=== PATIENT | female | born 1940 | race Caucasian/White ===

== ENCOUNTER 2018-04-28 13:30 | Emergency (ER) | payer OTHER ==
--- OUTSIDE RECORDS SUMMARY | 2018-04-28 13:34 | XMS REPORT | Clinical Summary ---
:1940 Author Organization [facility] Address [address] [place] [address] Care Team Providers Name Role Phone Gage Mccauley MD Primary Care Provider Allergies Active Allergy Reactions Severity Noted Date Comments Codeine GI Intolerance 11/27/2015 Vomiting Medications Medication Sig Dispensed Refills Start End Date Status Date insulin lispro Inject 5 Units 0 Active (HumaLOG) 100 under the skin 3 unit/mL injection (three) times a day before meals. INSULIN Inject 35 Units 0 Active GLARGINE,HUM.REC.AN under the skin LOG (TOUJEO daily. SOLOSTAR U-300 INSULIN SUBQ) albuterol (PROAIR Inhale 2 puffs 0 Active HFA,PROVENTIL every 6 (six) HFA,VENTOLIN HFA) hours as needed 90 mcg/actuation for wheezing. inhaler acetaminophen Take 1 tablet 30 tablet 2 Active (TYLENOL) 500 MG (500 mg total) by 8 tablet mouth every 6 (six) hours as needed for mild pain. gabapentin 300 mg Take by mouth. 0 09/10/19 Discontinued tablet extended 18 release 24 hr clonIDINE Take 0.1 mg by 0 11/05/19 Discontinued (CATAPRES) 0.1 MG mouth 2 (two) 18 tablet times a day. glipiZIDE Take 15 mg by 0 07/15/19 Discontinued (GLUCOTROL) 5 MG mouth 2 (two) 18 tablet times a day before meals. hydrALAZINE Take 50 mg by 0 11/18/19 Discontinued (APRESOLINE) 50 MG mouth 3 (three) 18 tablet times a day. metoprolol tartrate Take 50 mg by 0 11/18/19 Discontinued (LOPRESSOR) 50 MG mouth 2 (two) 18 tablet times a day. NIFEdipine XL Take 60 mg by 0 11/18/19 Discontinued (PROCARDIA XL) 60 mouth daily. 18 MG 24 hr tablet albuterol Inhale 2 puffs 0 07/15/19 Discontinued (PROVENTIL every 4 (four) 18 HFA;VENTOLIN HFA) hours as needed 90 mcg/actuation for wheezing. inhaler clopidogrel Take 75 mg by 0 07/15/19 Discontinued (PLAVIX) 75 mg mouth daily. 18 tablet insulin GLARGINE Inject 30 Units 0 07/15/19 Discontinued (LANTUS) 100 under the skin 2 18 unit/mL injection (two) times a day. montelukast Take 10 mg by 0 09/17/19 Discontinued (SINGULAIR) 10 mg mouth nightly. 18 tablet potassium chloride Take 10 mEq by 0 11/18/19 Discontinued (K-DUR,KLOR-CON) 10 mouth daily. 18 MEQ CR tablet thyroid, pork, Take 60 mg by 0 07/15/19 Discontinued (ARMOUR THYROID) 60 mouth daily. 18 mg tablet traMADol (ULTRAM) Take 50 mg by 0 09/17/19 Discontinued 50 mg tablet mouth every 6 18 (six) hours as needed for moderate pain. aspirin (ECOTRIN) Take 81 mg by 0 07/15/19 Discontinued 81 MG enteric mouth daily. 18 coated tablet atorvastatin Take 20 mg by 0 11/18/19 Discontinued (LIPITOR) 20 MG mouth nightly. 18 tablet pantoprazole Take 40 mg by 0 07/26/19 Discontinued (PROTONIX) 40 MG EC mouth daily. 18 tablet propafenone Take 150 mg by 0 09/17/19 Discontinued (RHTHYMOL) 150 MG mouth 2 (two) 18 tablet times a day. warfarin (COUMADIN) Take 4 mg by 0 07/15/19 Discontinued 4 MG tablet mouth daily. 6 18 days a week warfarin (COUMADIN) Take 1 mg by 0 07/15/19 Discontinued 1 MG tablet mouth once a 18 week. Every tuesday ranitidine (ZANTAC) Take 150 mg by 0 09/10/19 Discontinued 150 MG tablet mouth nightly. 18 torsemide (DEMADEX) Take 20 mg by 0 07/15/19 Discontinued 20 MG tablet mouth 2 (two) 18 times a day. enoxaparin Inject 0.6 mL (60 18 mL 0 08/14/19 (LOVENOX) 60 mg/0.6 mg total) under 8 18 mL syringe the skin daily for 30 days. torsemide (DEMADEX) Take 2 tablets 60 tablet 0 08/15/19 20 MG tablet (40 mg total) by 8 18 mouth daily for 30 days. pantoprazole Take 1 tablet (40 90 tablet 0 09/10/19 Discontinued (PROTONIX) 40 MG EC mg total) by 8 18 tablet mouth daily for 90 days. warfarin (COUMADIN) Take 4 mg by 0 11/18/19 Discontinued 4 MG tablet mouth See Admin 18 Instructions. Takes 6 days a week : Tuesday,Tuesday,, Tuesday, Tuesday, Tuesday warfarin (COUMADIN) Take 1 mg by 0 11/18/19 Discontinued 1 MG tablet mouth once a 18 week. On Tuesday @5PM acetaminophen Take 500 mg by 0 11/18/19 Discontinued (TYLENOL) 500 MG mouth every 6 18 tablet (six) hours as needed for mild pain. loratadine Take 10 mg by 0 09/10/19 Discontinued (CLARITIN) 10 mg mouth daily. 18 tablet dextrose 10 % Infuse 40 mL/hr 500 mL 0 09/05/19 infusion into a venous 8 18 catheter continuously as needed (bedside glucose LESS than 70 mg/dL) for up to 30 days. pantoprazole Take 40 mg by 0 11/18/19 Discontinued (PROTONIX) 40 MG EC mouth 2 (two) 18 tablet times a day. SUNItinib (SUTENT) Take 1 capsule by 0 09/17/19 Discontinued 37.5 mg capsule mouth nightly. 18 torsemide (DEMADEX) Take 30 mg by 0 09/17/19 Discontinued 20 MG tablet mouth daily. 18 ondansetron ODT Take 8 mg by 0 09/17/19 Discontinued (ZOFRAN-ODT) 8 MG mouth nightly. 18 disintegrating Takes 30 minutes tablet before taking Sutent caps traMADol (ULTRAM) Take 1 tablet (50 30 tablet 0 10/01/19 50 mg tablet mg total) by 8 18 mouth every 8 (eight) hours as needed for moderate pain for up to 30 doses. torsemide (DEMADEX) Take 1 tablet (20 30 tablet 0 10/17/19 20 MG tablet mg total) by 8 18 mouth daily for 30 days. HYDROcodone-acetami Take 1 tablet by 30 tablet 0 10/01/19 nophen (NORCO) mouth every 6 8 18 7.5-325 mg per (six) hours as tablet needed for moderate pain for up to 30 doses. Max Daily Amount: 4 tablets propafenone Take 1 tablet 90 tablet 0 10/17/19 (RYTHMOL) 150 MG (150 mg total) by 8 18 tablet mouth every 8 (eight) hours for 30 days. torsemide (DEMADEX) Take 20 mg by 0 11/09/19 Discontinued 20 MG tablet mouth daily. 18 propafenone Take 150 mg by 0 11/09/19 Discontinued (RYTHMOL) 150 MG mouth 3 (three) 18 tablet times a day. traMADol (ULTRAM) Take 50 mg by 0 11/09/19 Discontinued 50 mg tablet mouth every 6 18 (six) hours as needed for moderate pain. montelukast Take 10 mg by 0 11/09/19 Discontinued (SINGULAIR) 10 mg mouth nightly. 18 tablet traMADol (ULTRAM) Take 1 tablet (50 40 tablet 0 11/18/19 Discontinued 50 mg tablet mg total) by 8 18 mouth every 8 (eight) hours as needed for moderate pain for up to 40 doses. warfarin (COUMADIN) One tab daily 30 tablet 0 11/18/19 Discontinued 4 MG tablet 8 18 atorvastatin Take 1 tablet (20 30 tablet 0 11/18/19 Discontinued (LIPITOR) 20 MG mg total) by 8 18 tablet mouth nightly for 30 days. Default OP ins hydrALAZINE Take 1 tablet (50 90 tablet 0 11/18/19 Discontinued (APRESOLINE) 50 MG mg total) by 8 18 tablet mouth 3 (three) times a day for 30 days. metoprolol tartrate Take 1 tablet (50 60 tablet 0 11/18/19 Discontinued (LOPRESSOR) 50 mg mg total) by 8 18 tablet mouth 2 (two) times a day for 30 days. NIFEdipine XL Take 1 tablet (60 30 tablet 0 11/18/19 Discontinued (PROCARDIA XL) 60 mg total) by 8 18 MG 24 hr tablet mouth daily for 30 days. enoxaparin Inject 0.6 mL (60 1.8 mL 0 11/18/19 Discontinued (LOVENOX) 60 mg/0.6 mg total) under 8 18 mL syringe the skin daily for 3 days. montelukast Take 1 tablet (10 30 tablet 0 11/18/19 Discontinued (SINGULAIR) 10 mg mg total) by 8 18 tablet mouth nightly for 30 days. torsemide (DEMADEX) Take 1 tablet (20 30 tablet 0 11/18/19 Discontinued 20 MG tablet mg total) by 8 18 mouth daily for 30 days. potassium chloride Take 1 capsule 30 capsule 0 12/19/19 (MICRO-K) 10 MEQ CR (10 mEq total) by 8 18 capsule mouth daily for 30 days. pantoprazole Take 1 tablet (40 60 tablet 0 11/18/19 Discontinued (PROTONIX) 40 MG EC mg total) by 8 18 tablet mouth 2 (two) times a day for 30 days. propafenone Take 1 tablet 90 tablet 0 11/18/19 Discontinued (RYTHMOL) 150 MG (150 mg total) by 8 18 tablet mouth 3 (three) times a day for 30 days. traMADol (ULTRAM) Take 1 tablet (50 40 tablet 0 12/09/19 50 mg tablet mg total) by 8 18 mouth every 8 (eight) hours as needed for moderate pain for up to 40 doses. propafenone Take 1 tablet 90 tablet 0 12/18/19 (RYTHMOL) 150 MG (150 mg total) by 8 18 tablet mouth 3 (three) times a day for 30 days. warfarin (COUMADIN) One tab daily 30 tablet 0 12/16/19 4 MG tablet 8 18 atorvastatin Take 1 tablet (20 30 tablet 0 12/18/19 (LIPITOR) 20 MG mg total) by 8 18 tablet mouth nightly for 30 days. Default OP ins hydrALAZINE Take 1 tablet (50 90 tablet 0 12/18/19 (APRESOLINE) 50 MG mg total) by 8 18 tablet mouth 3 (three) times a day for 30 days. metoprolol tartrate Take 1 tablet (50 60 tablet 0 12/18/19 (LOPRESSOR) 50 mg mg total) by 8 18 tablet mouth 2 (two) times a day for 30 days. NIFEdipine XL Take 1 tablet (60 30 tablet 0 12/19/19 (PROCARDIA XL) 60 mg total) by 8 18 MG 24 hr tablet mouth daily for 30 days. enoxaparin Inject 0.6 mL (60 1.8 mL 0 11/21/19 (LOVENOX) 60 mg/0.6 mg total) under 8 18 mL syringe the skin daily for 3 days. montelukast Take 1 tablet (10 30 tablet 0 12/18/19 (SINGULAIR) 10 mg mg total) by 8 18 tablet mouth nightly for 30 days. torsemide (DEMADEX) Take 1 tablet (20 30 tablet 0 12/19/19 20 MG tablet mg total) by 8 18 mouth daily for 30 days. pantoprazole Take 1 tablet (40 60 tablet 0 12/18/19 (PROTONIX) 40 MG EC mg total) by 8 18 tablet mouth 2 (two) times a day for 30 days. Active Problems Problem Noted Date Bilateral primary osteoarthritis of knee 12/21/2017 Type 2 diabetes mellitus with nephropathy 11/12/2017 Left thyroid nodule 11/12/2017 Acute on chronic combined systolic and diastolic congestive heart failure Paroxysmal atrial fibrillation 11/07/2017 Thyroid nodule 09/15/2017 Resolved Problems Problem Noted Date Resolved Date Other hyperlipidemia 09/15/2017 09/16/2017 Essential hypertension 09/15/2017 09/16/2017 Uncontrolled type 2 diabetes mellitus with peripheral 09/10/2017 09/16/2017 neuropathy Acquired hypothyroidism 09/10/2017 09/16/2017 Abdominal hernia without obstruction and without gangrene 09/09/20172017 Renal cancer, unspecified laterality 08/02/2017 09/16/2017 Cancer Staging: Pathologic stage from 08/02/2017: Stage III (pT3a, pNX, cM0) - Signed by Wayne Reeves MD on 10/27/2017 Left renal mass 07/12/2017 07/14/2017 Arthritis of left knee 12/14/2016 07/14/2017 Cervicalgia 06/23/2016 07/14/2017 Primary osteoarthritis of right knee 06/16/2016 07/14/2017 MARIA ESTHER (obstructive sleep apnea) 12/16/2015 07/14/2017 Gastroesophageal reflux disease without esophagitis 12/16/2015 07/14/2017 Cellulitis and abscess of hand 12/15/2015 07/14/2017 Carpal tunnel syndrome 11/27/2015 07/14/2017 Overview: Bilateral Knee pain 11/27/2015 07/14/2017 Idiopathic localized osteoarthropathy 11/27/2015 07/14/2017 Primary osteoarthritis of left knee 11/27/2015 07/14/2017 Lumbar spondylosis 11/27/2015 07/14/2017 Low back pain 11/27/2015 07/14/2017 Spondylolisthesis 11/27/2015 07/14/2017 Osteoarthritis 11/27/2015 07/14/2017 Encounters Date Type Specialty Care Team Description 01/25/2018 Intake Access N/A 12/21/2017 Office Visit Orthopedic Surgery Josemanuel Landrum, Primary osteoarthritis of both knees (Primary Dx) 11/14/2017 Anesthesia Event Plastic Surgery Hayde Hudson MD 11/14/2017 Surgery Plastic Surgery Fritz Ferguson MD LOBECTOMY 11/08/2017 Anesthesia Event Procedural Bethany Alex Cardiology 11/08/2017 Surgery Procedural Mikey Strong cardioversion Basilio Tinajero MD [[id number] (CPT)] 11/07/2017 - Hospital Encounter Cardiology Federico Guzman 11/17/2017 MD Villa 11/07/2017 Orders Only General Internal Federico Guzman MD 09/10/2017 Anesthesia Event General Surgery Federico Giang MD 09/10/2017 Surgery General Surgery Vishnu Bowens INCARCERATED HERNIA MD Yun REPAIR, WITH MESH 09/09/2017 - Hospital Encounter General Surgery Cindi Fink Abdominal hernia without obstruction and without gangrene, recurrence not specified, unspecified hernia type (Primary Dx); 09/16/2017 MD Aiden Chronic renal impairment, unspecified CKD stage Federico Guzman MD 08/02/2017 Anesthesia Event Urology Mary Beth Garcia, ENVIRONMENTAL 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 08/02/2017 Surgery Urology Wayne Reeves LAPAROSCOPIC LEFT MD Julia RADICAL NEPHRECTOMY 08/02/2017 - Hospital Encounter General Internal Wayen Reeves Renal cancer, 08/05/2017 Eugene Dumont MD unspecified laterality 08/01/2017 Pre-Admit Testing Pre-Admission Wayne Reeves Preop examination (Primary Dx); Appointment Testing MD Julia Chronic atrial fibrillation; Essential hypertension; Type 2 diabetes mellitus with complication, unspecified retirement insulin use status; Anticoagulant long-term use 07/25/2017 Office Visit General Surgery Fuad Gilbert, jazmine Malcolm MD (Primary Dx) 07/18/2017 Patient Outreach Quality Estela Yan, PharmD 07/12/2017 - Hospital Encounter General Internal Megan Federico Left renal mass 07/14/2017 Eugene Driver MD (Primary Dx) 07/12/2017 Orders Only General Internal Federico Guzman MD 07/05/2017 Hospital Encounter Radiology Henao, Chronic kidney disease, stage III (moderate); Wayne Plascencia MD Essential hypertension 07/05/2017 Hospital Encounter Radiology Henao, Chronic kidney disease, stage III (moderate); Wayne Plascencia MD Essential hypertension 06/16/2017 Office Visit Orthopedic Surgery Josemanuel Landrum, Primary osteoarthritis of left knee (Primary Dx); Primary osteoarthritis of right knee 06/16/2017 Transcribe Orders Access Henao, Chronic kidney disease, stage III (moderate) (Primary Dx); Wayne Plascencia MD Essential hypertension after 04/27/2017 Immunizations Name Dates Previously Given Next Due Pneumococcal Conjugate 13-Valent 07/12/2017 Social History Tobacco Use Types Packs/Day Years Used Date Never Smoker Smokeless Tobacco: Never Used Tobacco Cessation: Counseling Given: No Alcohol Use Drinks/Week oz/Week Comments No Sex Assigned at Date Recorded Not on file Job Start Date Occupation Industry Not on file Not on file Not on file Travel History Travel Start Travel End No recent travel history available. Last Filed Vital Signs Vital Sign Reading Time Taken Blood Pressure 136/65 11/17/2017 11:29 AM CDT Pulse 58 11/17/2017 11:29 AM CDT Temperature 35.8 C (96.5 F) 11/17/2017 11:29 AM CDT Respiratory Rate 18 11/17/2017 11:29 AM CDT Oxygen Saturation 98% 11/17/2017 11:29 AM CDT Inhaled Oxygen Concentration - - Weight 71.3 kg (157 lb 3.2 oz) 11/17/2017 7:00 AM CDT Height 165.1 cm (5' 5") 11/14/2017 3:09 PM CDT Body Mass Index 26.16 11/17/2017 7:00 AM CDT Plan of Treatment Health Maintenance Due Date Last Done Comments DIABETIC RETINAL EYE EXAM 1940 DIABETIC FOOT EXAM 1951 SHINGLES VACCINES (1 of 2) 1991 PNEUMOCOCCAL POLYSACCHARIDE VACCINE AGE 65 AND OVER 2006 INFLUENZA VACCINE 12/14/2017 PNEUMOCOCCAL-13 Completed 07/12/2017 Implants Implanted Type Area [employer] Device Shelf Model / Identifier Expiration Serial / Date Lot Matrix Tiss Strattice [id number] Recnstrctv Prcne Acell Firm - [id number] Human Tissue N/A: N/A [employer] 01/13/2019 [id number] / Implanted: Qty: 1 on 09/10/2017 by Vishnu Bowens MD Implants ALTHIA / [id number] Drain Wnd Chnl 19fr 1/4in Rnd Hbls Fl-Flut W/ 1/4in Trocar - [id number] Surgical Left: ETHICON DIV OF 02/12/2021 [id number] / Implanted: Qty: 1 on 09/10/2017 by Vishnu Bowens MD Implants; N/A CASSY & / Expanders; CASSY Extenders; Surgical Wires Drain Wnd 1/8in 49in Rnd End Perfrtn W/ Trocar 10in Hol Ptrn - [id number] Surgical N/A: N/A [employer] 08/13/2022 [id number] / Implanted: 11/14/2017 (Quantity not on file) Implants; DIVISION / Expanders; [id number] Extenders; Surgical Wires Procedures Procedure Name Priority Date/Time Associated Diagnosis Comments XR KNEE 4+ VW Routine 12/21/2017 11:38 Primary Results for this BILATERAL AM CDT osteoarthritis of procedure are in left knee the results Primary section. osteoarthritis of right knee HI ARTHROCENTESIS Routine 12/21/2017 11:00 Primary Results for this ASPIR&/INJ MAJOR AM CDT osteoarthritis of procedure are in JT/BURSA W/O US both knees the results section. POC GLUCOSE Routine 11/17/2017 11:31 Results for this AM CDT procedure are in the results section. POC GLUCOSE Routine 11/17/2017 7:49 Results for this AM CDT procedure are in the results section. ZZESTIMATED GFR Routine 11/17/2017 5:30 Results for this AM CDT procedure are in the results section. BASIC METABOLIC PANEL Routine 11/17/2017 5:30 Results for this AM CDT procedure are in the results section. HC COMPLETE BLD COUNT Routine 11/17/2017 5:30 Results for this W/AUTO DIFF AM CDT procedure are in the results section. PROTHROMBIN TIME WITH Routine 11/17/2017 5:30 Results for this INR AM CDT procedure are in the results section. POC GLUCOSE Routine 11/16/2017 9:31 Results for this PM CDT procedure are in the results section. POC GLUCOSE Routine 11/16/2017 4:44 Results for this PM CDT procedure are in the results section. POC GLUCOSE Routine 11/16/2017 11:36 Results for this AM CDT procedure are in the results section. POC GLUCOSE Routine 11/16/2017 8:12 Results for this AM CDT procedure are in the results section. ZZESTIMATED GFR Routine 11/16/2017 4:00 Results for this AM CDT procedure are in the results section. PROTHROMBIN TIME WITH Routine 11/16/2017 4:00 Results for this INR AM CDT procedure are in the results section. MAGNESIUM LEVEL Routine 11/16/2017 4:00 Results for this AM CDT procedure are in the results section. BASIC METABOLIC PANEL Routine 11/16/2017 4:00 Results for this AM CDT procedure are in the results section. HC COMPLETE BLD COUNT Routine 11/16/2017 4:00 Results for this W/AUTO DIFF AM CDT procedure are in the results section. POC GLUCOSE Routine 11/15/2017 8:51 Results for this PM CDT procedure are in the results section. POC GLUCOSE Routine 11/15/2017 5:05 Results for this PM CDT procedure are in the results section. PROTHROMBIN TIME WITH STAT 11/15/2017 12:36 Results for this INR PM CDT procedure are in the results section. POC GLUCOSE Routine 11/15/2017 10:56 Results for this AM CDT procedure are in the results section. POC GLUCOSE Routine 11/15/2017 7:57 Results for this AM CDT procedure are in the results section. ZZESTIMATED GFR Routine 11/15/2017 5:35 Results for this AM CDT procedure are in the results section. MAGNESIUM LEVEL Routine 11/15/2017 5:35 Results for this AM CDT procedure are in the results section. BASIC METABOLIC PANEL Routine 11/15/2017 5:35 Results for this AM CDT procedure are in the results section. HC COMPLETE BLD COUNT Routine 11/15/2017 5:35 Results for this W/AUTO DIFF AM CDT procedure are in the results section. POC GLUCOSE Routine 11/14/2017 10:29 Results for this PM CDT procedure are in the results section. POC GLUCOSE Routine 11/14/2017 5:45 Results for this PM CDT procedure are in the results section. SURGICAL PATHOLOGY Routine 11/14/2017 5:04 Results for this REQUEST PM CDT procedure are in the results section. HI AN ELECTIVE Routine 11/14/2017 3:59 ENDOTRACHEAL AIRWAY PM CDT Procedure Note - Sarkis Wood CRNA - 11/14/2017 3:59 PM CDT Airway Date/Time: 11/14/2017 3:38 PM Performed by: SARKIS WOOD Authorized by: HAYDE HUDSON Location: OR Urgency: Elective Preoxygenated with 100% O2: Yes Mask Ventilation: Easy mask Final Airway Type: Endotracheal airway Final Endotracheal Airway: ETT and LAYTON tube Cuffed: Yes Technique Used: Direct laryngoscopy Devices/Methods Used in Placement: Intubating stylet Insertion Site: Oral Blade Type: Arsen Laryngoscope Blade/Videolaryngoscope Blade Size: 3 ETT Size (mm): 6.5 Cuff at minimum occlusion pressure: Yes Measured from: Lips ETT to Lips (cm): 21 Placement Verified by: CO2 detection, direct visualization and equal breath sounds Laryngoscopic view: Grade IIa - partial view of glottis Rapid Sequence Induction (RSI): No Number of Attempts at Approach: 1 THYROIDECTOMY 11/14/2017 3:15 PM Left thyroid CDT nodule POC GLUCOSE Routine 11/14/2017 3:15 PM Results for this CDT procedure are in the results section. POC GLUCOSE Routine 11/14/2017 2:03 PM Results for this CDT procedure are in the results section. POC GLUCOSE Routine 11/14/2017 10:59 AM Results for this CDT procedure are in the results section. POC GLUCOSE Routine 11/14/2017 8:03 AM Results for this CDT procedure are in the results section. ZZESTIMATED GFR Routine 11/14/2017 5:40 AM Results for this CDT procedure are in the results section. PROTHROMBIN TIME WITH Routine 11/14/2017 5:40 AM Results for this INR CDT procedure are in the results section. MAGNESIUM LEVEL Routine 11/14/2017 5:40 AM Results for this CDT procedure are in the results section. BASIC METABOLIC PANEL Routine 11/14/2017 5:40 AM Results for this CDT procedure are in the results section. HC COMPLETE BLD COUNT Routine 11/14/2017 5:40 AM Results for this W/AUTO DIFF CDT procedure are in the results section. ANTI XA, UNFRACTIONATED Routine 11/14/2017 5:40 AM Results for this CDT procedure are in the results section. POC GLUCOSE Routine 11/14/2017 4:40 AM Results for this CDT procedure are in the results section. POC GLUCOSE Routine 11/13/2017 10:43 PM Results for this CDT procedure are in the results section. POC GLUCOSE Routine 11/13/2017 8:52 PM Results for this CDT procedure are in the results section. POC GLUCOSE Routine 11/13/2017 5:22 PM Results for this CDT procedure are in the results section. POC GLUCOSE Routine 11/13/2017 12:13 PM Results for this CDT procedure are in the results section. POC GLUCOSE Routine 11/13/2017 7:54 AM Results for this CDT procedure are in the results section. ANTI XA, UNFRACTIONATED Routine 11/13/2017 4:45 AM Results for this CDT procedure are in the results section. PROTHROMBIN TIME WITH Routine 11/13/2017 4:45 AM Results for this INR CDT procedure are in the results section. HC COMPLETE BLD COUNT Routine 11/13/2017 4:45 AM Results for this W/AUTO DIFF CDT procedure are in the results section. ZZESTIMATED GFR Routine 11/13/2017 4:00 AM Results for this CDT procedure are in the results section. BASIC METABOLIC PANEL Routine 11/13/2017 4:00 AM Results for this CDT procedure are in the results section. POC GLUCOSE Routine 11/12/2017 8:54 PM Results for this CDT procedure are in the results section. ANTI XA, UNFRACTIONATED Routine 11/12/2017 6:00 PM Results for this CDT procedure are in the results section. POC GLUCOSE Routine 11/12/2017 5:09 PM Results for this CDT procedure are in the results section. POC GLUCOSE Routine 11/12/2017 1:48 PM Results for this CDT procedure are in the results section. POC GLUCOSE Routine 11/12/2017 10:49 AM Results for this CDT procedure are in the results section. ANTI XA, UNFRACTIONATED Routine 11/12/2017 8:27 AM Results for this CDT procedure are in the results section. POC GLUCOSE Routine 11/12/2017 7:56 AM Results for this CDT procedure are in the results section. ANTI XA, UNFRACTIONATED Routine 11/12/2017 1:00 AM Results for this CDT procedure are in the results section. POC GLUCOSE Routine 11/11/2017 9:13 PM Results for this CDT procedure are in the results section. POC GLUCOSE Routine 11/11/2017 5:52 PM Results for this CDT procedure are in the results section. POC GLUCOSE Routine 11/11/2017 12:02 PM Results for this CDT procedure are in the results section. POC GLUCOSE Routine 11/11/2017 8:07 AM Results for this CDT procedure are in the results section. PROTHROMBIN TIME WITH Routine 11/11/2017 5:24 AM Results for this INR CDT procedure are in the results section. POC GLUCOSE Routine 11/10/2017 10:40 PM Results for this CDT procedure are in the results section. POC GLUCOSE Routine 11/10/2017 5:28 PM Results for this CDT procedure are in the results section. POC GLUCOSE Routine 11/10/2017 12:03 PM Results for this CDT procedure are in the results section. POC GLUCOSE Routine 11/10/2017 8:17 AM Results for this CDT procedure are in the results section. PROTHROMBIN TIME WITH Routine 11/10/2017 5:51 AM Results for this INR CDT procedure are in the results section. POC GLUCOSE Routine 11/09/2017 9:18 PM Results for this CDT procedure are in the results section. CT ABDOMEN PELVIS WO Routine 11/09/2017 5:59 PM Results for this CONTRAST CDT procedure are in the results section. POC GLUCOSE Routine 11/09/2017 5:01 PM Results for this CDT procedure are in the results section. US THYROID BIOPSY Routine 11/09/2017 12:38 PM Results for this CDT procedure are in the results section. POC GLUCOSE Routine 11/09/2017 12:24 PM Results for this CDT procedure are in the results section. CYTOLOGY Routine 11/09/2017 12:06 PM Results for this (NON-GYNECOLOGICAL) CDT procedure are in REQUEST the results section. POC GLUCOSE Routine 11/09/2017 10:23 AM Results for this CDT procedure are in the results section. POC GLUCOSE Routine 11/09/2017 7:11 AM Results for this CDT procedure are in the results section. ZZESTIMATED GFR Routine 11/09/2017 1:44 AM Results for this CDT procedure are in the results section. MAGNESIUM LEVEL Routine 11/09/2017 1:44 AM Results for this CDT procedure are in the results section. BASIC METABOLIC PANEL Routine 11/09/2017 1:44 AM Results for this CDT procedure are in the results section. PROTHROMBIN TIME WITH Timed 11/09/2017 1:00 AM Results for this INR CDT procedure are in the results section. ANTI XA, UNFRACTIONATED Timed 11/09/2017 1:00 AM Results for this CDT procedure are in the results section. HC COMPLETE BLD COUNT Routine 11/09/2017 1:00 AM Results for this W/AUTO DIFF CDT procedure are in the results section. POC GLUCOSE Routine 11/08/2017 9:19 PM Results for this CDT procedure are in the results section. POC GLUCOSE Routine 11/08/2017 5:42 PM Results for this CDT procedure are in the results section. ANTI XA, UNFRACTIONATED Routine 11/08/2017 5:20 PM Results for this CDT procedure are in the results section. POC GLUCOSE Routine 11/08/2017 12:32 PM Results for this CDT procedure are in the results section. ECG 12-LEAD STAT 11/08/2017 10:33 AM Results for this CDT procedure are in the results section. EP CARDIOVERSION Routine 11/08/2017 10:29 AM Atrial Results for this CDT fibrillation, procedure are in persistent the results section. ZZESTIMATED GFR Routine 11/08/2017 8:59 AM Results for this CDT procedure are in the results section. MAGNESIUM LEVEL Routine 11/08/2017 8:59 AM Results for this CDT procedure are in the results section. BASIC METABOLIC PANEL Routine 11/08/2017 8:59 AM Results for this CDT procedure are in the results section. POC GLUCOSE Routine 11/08/2017 8:12 AM Results for this CDT procedure are in the results section. ANTI XA, UNFRACTIONATED Timed 11/08/2017 6:00 AM Results for this CDT procedure are in the results section. POC GLUCOSE Routine 11/08/2017 4:52 AM Results for this CDT procedure are in the results section. PARTIAL THROMBOPLASTIN STAT 11/07/2017 10:33 PM Results for this TIME (PTT) CDT procedure are in the results section. ANTI XA, UNFRACTIONATED STAT 11/07/2017 10:33 PM Results for this CDT procedure are in the results section. POC GLUCOSE Routine 11/07/2017 9:26 PM Results for this CDT procedure are in the results section. POC GLUCOSE Routine 11/07/2017 4:51 PM Results for this CDT procedure are in the results section. ZZESTIMATED GFR Routine 11/07/2017 4:00 PM Results for this CDT procedure are in the results section. PROTHROMBIN TIME WITH Routine 11/07/2017 4:00 PM Results for this INR CDT procedure are in the results section. PHOSPHORUS LEVEL Routine 11/07/2017 4:00 PM Results for this CDT procedure are in the results section. MAGNESIUM LEVEL Routine 11/07/2017 4:00 PM Results for this CDT procedure are in the results section. HEMOGLOBIN A1C Routine 11/07/2017 4:00 PM Results for this CDT procedure are in the results section. CREATINE KINASE, TOTAL Routine 11/07/2017 4:00 PM Results for this (CPK) CDT procedure are in the results section. HC COMPLETE BLD COUNT Routine 11/07/2017 4:00 PM Results for this W/AUTO DIFF CDT procedure are in the results section. BASIC METABOLIC PANEL Routine 11/07/2017 4:00 PM Results for this CDT procedure are in the results section. B NATRIURETIC PEPTIDE Routine 11/07/2017 4:00 PM Results for this CDT procedure are in the results section. POC GLUCOSE Routine 11/07/2017 1:37 PM Results for this CDT procedure are in the results section. POC GLUCOSE Routine 09/16/2017 11:34 AM Results for this CDT procedure are in the results section. POC GLUCOSE Routine 09/16/2017 7:48 AM Results for this CDT procedure are in the results section. HC COMPLETE BLD COUNT Routine 09/16/2017 4:35 AM Results for this W/AUTO DIFF CDT procedure are in the results section. PROTHROMBIN TIME WITH Routine 09/16/2017 4:35 AM Results for this INR CDT procedure are in the results section. ZZESTIMATED GFR Routine 09/16/2017 4:00 AM Results for this CDT procedure are in the results section. MAGNESIUM LEVEL Routine 09/16/2017 4:00 AM Results for this CDT procedure are in the results section. BASIC METABOLIC PANEL Routine 09/16/2017 4:00 AM Results for this CDT procedure are in the results section. POC GLUCOSE Routine 09/15/2017 8:55 PM Results for this CDT procedure are in the results section. POC GLUCOSE Routine 09/15/2017 6:03 PM Results for this CDT procedure are in the results section. POC GLUCOSE Routine 09/15/2017 12:08 PM Results for this CDT procedure are in the results section. POC GLUCOSE Routine 09/15/2017 12:03 PM Results for this CDT procedure are in the results section. POC GLUCOSE Routine 09/15/2017 9:05 AM Results for this CDT procedure are in the results section. ZZESTIMATED GFR Routine 09/15/2017 4:00 AM Results for this CDT procedure are in the results section. PROTHROMBIN TIME WITH Routine 09/15/2017 4:00 AM Results for this INR CDT procedure are in the results section. B NATRIURETIC PEPTIDE Routine 09/15/2017 4:00 AM Results for this CDT procedure are in the results section. MAGNESIUM LEVEL Routine 09/15/2017 4:00 AM Results for this CDT procedure are in the results section. BASIC METABOLIC PANEL Routine 09/15/2017 4:00 AM Results for this CDT procedure are in the results section. HC COMPLETE BLD COUNT Routine 09/15/2017 4:00 AM Results for this W/AUTO DIFF CDT procedure are in the results section. POC GLUCOSE Routine 09/14/2017 9:08 PM Results for this CDT procedure are in the results section. POC GLUCOSE Routine 09/14/2017 5:00 PM Results for this CDT procedure are in the results section. POC GLUCOSE Routine 09/14/2017 1:11 PM Results for this CDT procedure are in the results section. POC GLUCOSE Routine 09/14/2017 11:12 AM Results for this CDT procedure are in the results section. POC GLUCOSE Routine 09/14/2017 7:36 AM Results for this CDT procedure are in the results section. PROTHROMBIN TIME WITH Routine 09/14/2017 4:08 AM Results for this INR CDT procedure are in the results section. B NATRIURETIC PEPTIDE Routine 09/14/2017 4:05 AM Results for this CDT procedure are in the results section. ZZESTIMATED GFR Routine 09/14/2017 4:00 AM Results for this CDT procedure are in the results section. MAGNESIUM LEVEL Routine 09/14/2017 4:00 AM Results for this CDT procedure are in the results section. BASIC METABOLIC PANEL Routine 09/14/2017 4:00 AM Results for this CDT procedure are in the results section. HC COMPLETE BLD COUNT Routine 09/14/2017 4:00 AM Results for this W/AUTO DIFF CDT procedure are in the results section. XR ABDOMEN 1 VW STAT 09/14/2017 12:01 AM Results for this PORTABLE CDT procedure are in the results section. POC GLUCOSE Routine 09/13/2017 3:34 PM Results for this CDT procedure are in the results section. POC GLUCOSE Routine 09/13/2017 12:09 PM Results for this CDT procedure are in the results section. ECG 12-LEAD Routine 09/13/2017 7:32 AM Results for this CDT procedure are in the results section. POC GLUCOSE Routine 09/13/2017 6:41 AM Results for this CDT procedure are in the results section. PROTHROMBIN TIME WITH Routine 09/13/2017 4:30 AM Results for this INR CDT procedure are in the results section. POC GLUCOSE Routine 09/12/2017 8:43 PM Results for this CDT procedure are in the results section. POC GLUCOSE Routine 09/12/2017 3:46 PM Results for this CDT procedure are in the results section. POC GLUCOSE Routine 09/12/2017 11:47 AM Results for this CDT procedure are in the results section. POC GLUCOSE Routine 09/12/2017 7:57 AM Results for this CDT procedure are in the results section. ZZESTIMATED GFR Routine 09/12/2017 4:00 AM Results for this CDT procedure are in the results section. PROTHROMBIN TIME WITH Routine 09/12/2017 4:00 AM Results for this INR CDT procedure are in the results section. PHOSPHORUS LEVEL Routine 09/12/2017 4:00 AM Results for this CDT procedure are in the results section. MAGNESIUM LEVEL Routine 09/12/2017 4:00 AM Results for this CDT procedure are in the results section. BASIC METABOLIC PANEL Routine 09/12/2017 4:00 AM Results for this CDT procedure are in the results section. B NATRIURETIC PEPTIDE Routine 09/12/2017 4:00 AM Results for this CDT procedure are in the results section. CBC WITH PLATELET AND Routine 09/12/2017 4:00 AM Results for this DIFFERENTIAL CDT procedure are in the results section. POC GLUCOSE Routine 09/11/2017 9:04 PM Results for this CDT procedure are in the results section. POC GLUCOSE Routine 09/11/2017 3:43 PM Results for this CDT procedure are in the results section. ZZESTIMATED GFR STAT 09/11/2017 1:10 PM Results for this CDT procedure are in the results section. BASIC METABOLIC PANEL STAT 09/11/2017 1:10 PM Results for this CDT procedure are in the results section. US THYROID Routine 09/11/2017 12:57 PM Results for this CDT procedure are in the results section. POC GLUCOSE Routine 09/11/2017 11:16 AM Results for this CDT procedure are in the results section. POC GLUCOSE Routine 09/11/2017 7:23 AM Results for this CDT procedure are in the results section. T4, FREE Routine 09/11/2017 4:25 AM Results for this CDT procedure are in the results section. THYROID STIMULATING Routine 09/11/2017 4:25 AM Results for this HORMONE CDT procedure are in the results section. ZZESTIMATED GFR Routine 09/11/2017 4:25 AM Results for this CDT procedure are in the results section. PHOSPHORUS LEVEL Routine 09/11/2017 4:25 AM Results for this CDT procedure are in the results section. MAGNESIUM LEVEL Routine 09/11/2017 4:25 AM Results for this CDT procedure are in the results section. HC COMPLETE BLD COUNT Routine 09/11/2017 4:25 AM Results for this W/AUTO DIFF CDT procedure are in the results section. COMPREHENSIVE METABOLIC Routine 09/11/2017 4:25 AM Results for this PANEL CDT procedure are in the results section. B NATRIURETIC PEPTIDE Routine 09/11/2017 4:25 AM Results for this CDT procedure are in the results section. PROTHROMBIN TIME WITH Routine 09/11/2017 4:25 AM Results for this INR CDT procedure are in the results section. ZZESTIMATED GFR Routine 09/10/2017 11:58 PM Results for this CDT procedure are in the results section. BASIC METABOLIC PANEL Routine 09/10/2017 11:58 PM Results for this CDT procedure are in the results section. HC COMPLETE BLD COUNT Routine 09/10/2017 11:58 PM Results for this W/AUTO DIFF CDT procedure are in the results section. POC GLUCOSE Routine 09/10/2017 9:09 PM Results for this CDT procedure are in the results section. POC GLUCOSE Routine 09/10/2017 4:31 PM Results for this CDT procedure are in the results section. POC GLUCOSE Routine 09/10/2017 2:31 PM Results for this CDT procedure are in the results section. POC GLUCOSE Routine 09/10/2017 12:29 PM Results for this CDT procedure are in the results section. POC GLUCOSE Routine 09/10/2017 10:32 AM Results for this CDT procedure are in the results section. HI AN ELECTIVE Routine 09/10/2017 8:55 AM ENDOTRACHEAL AIRWAY CDT Procedure Note - Henok Rich CRNA - 09/10/2017 8:55 AM CDT Airway Date/Time: 09/10/2017 8:28 AM Performed by: HENOK RICH Authorized by: FEDERICO GIANG Location: OR Urgency: Elective Difficult Airway: No Resident/SOFTWARE DEVELOPMENT PROJECT MANAGER/AA: HENOK RICH Performed by: resident/SOFTWARE DEVELOPMENT PROJECT MANAGER/AA Preoxygenated with 100% O2: Yes C-spine Precautions Maintained Throughout: No Mask Ventilation: Assisted mask Final Airway Type: Endotracheal airway Final Endotracheal Airway: ETT Cuffed: Yes Technique Used: Direct laryngoscopy Devices/Methods Used in Placement: Intubating stylet Insertion Site: Oral Blade Type: Toscano Laryngoscope Blade/Videolaryngoscope Blade Size: 2 ETT Size (mm): 7.0 Cuff at minimum occlusion pressure: Yes Measured from: Lips ETT to Lips (cm): 22 Placement Verified by: CO2 detection, direct visualization and equal breath sounds Laryngoscopic view: Grade IIa - partial view of glottis Rapid Sequence Induction (RSI): No Modified RSI: No Number of Attempts at Approach: 1 SURGICAL PATHOLOGY REQUEST Routine 09/10/2017 8:54 AM CDT POC GLUCOSE Routine 09/10/2017 8:08 AM CDT REPAIR, HERNIA, INGUINAL, 09/10/2017 8:00 AM CDT INCARCERATED OR STRANGULATED POC GLUCOSE Routine 09/10/2017 7:39 AM CDT B NATRIURETIC PEPTIDE Routine 09/10/2017 4:00 AM CDT ZZESTIMATED GFR Routine 09/10/2017 4:00 AM CDT LIPID PANEL Routine 09/10/2017 4:00 AM CDT PROTHROMBIN TIME WITH INR Routine 09/10/2017 4:00 AM CDT MAGNESIUM LEVEL Routine 09/10/2017 4:00 AM CDT BASIC METABOLIC PANEL Routine 09/10/2017 4:00 AM CDT HC COMPLETE BLD COUNT W/AUTO Routine 09/10/2017 4:00 AM CDT Results for this DIFF procedure are in the results section. POC GLUCOSE Routine 09/09/2017 8:59 PM CDT POC GLUCOSE Routine 09/09/2017 4:59 PM CDT POC GLUCOSE Routine 09/09/2017 12:40 PM CDT URINALYSIS SCREEN AND STAT 09/09/2017 5:45 AM CDT Results for this MICROSCOPY, WITH REFLEX TO procedure are in the CULTURE results section. GRAM STAIN STAT 09/09/2017 5:25 AM CDT URINE CULTURE STAT 09/09/2017 5:25 AM CDT ECG 12-LEAD STAT 09/09/2017 2:52 AM CDT THYROID STIMULATING HORMONE STAT 09/09/2017 2:51 AM CDT T4, FREE STAT 09/09/2017 2:51 AM CDT ZZESTIMATED GFR STAT 09/09/2017 2:51 AM CDT LIPASE LEVEL STAT 09/09/2017 2:51 AM CDT MAGNESIUM LEVEL STAT 09/09/2017 2:51 AM CDT PHOSPHORUS LEVEL STAT 09/09/2017 2:51 AM CDT HEPATIC FUNCTION PANEL STAT 09/09/2017 2:51 AM CDT BASIC METABOLIC PANEL STAT 09/09/2017 2:51 AM CDT PARTIAL THROMBOPLASTIN TIME STAT 09/09/2017 2:51 AM CDT Results for this (PTT) procedure are in the results section. PROTHROMBIN TIME WITH INR STAT 09/09/2017 2:51 AM CDT HC COMPLETE BLD COUNT W/AUTO STAT 09/09/2017 2:51 AM CDT Results for this DIFF procedure are in the results section. CT ABDOMEN PELVIS WO STAT 09/09/2017 2:43 AM CDT Results for this CONTRAST procedure are in the results section. ECG ED PRELIMINARY Routine 09/09/2017 2:03 AM CDT Results for this INTERPRETATION procedure are in the results section. POC GLUCOSE Routine 08/05/2017 12:38 PM CDT XR ABDOMEN 1 VW PORTABLE Routine 08/05/2017 9:27 AM CDT XR CHEST 1 VW PORTABLE Routine 08/05/2017 9:27 AM CDT POC GLUCOSE Routine 08/05/2017 8:52 AM CDT ZZESTIMATED GFR Routine 08/05/2017 4:00 AM CDT PROTHROMBIN TIME WITH INR Routine 08/05/2017 4:00 AM CDT HC COMPLETE BLD COUNT W/AUTO Routine 08/05/2017 4:00 AM CDT Results for this DIFF procedure are in the results section. BASIC METABOLIC PANEL Routine 08/05/2017 4:00 AM CDT POC GLUCOSE Routine 08/04/2017 8:51 PM CDT POC GLUCOSE Routine 08/04/2017 6:44 PM CDT POC GLUCOSE Routine 08/04/2017 1:00 PM CDT POC GLUCOSE Routine 08/04/2017 9:11 AM CDT PROTHROMBIN TIME WITH INR Routine 08/04/2017 4:40 AM CDT B NATRIURETIC PEPTIDE Routine 08/04/2017 4:40 AM CDT HC COMPLETE BLD COUNT W/AUTO Routine 08/04/2017 4:40 AM CDT Results for this DIFF procedure are in the results section. ZZESTIMATED GFR Routine 08/04/2017 4:00 AM CDT MAGNESIUM LEVEL Routine 08/04/2017 4:00 AM CDT BASIC METABOLIC PANEL Routine 08/04/2017 4:00 AM CDT POC GLUCOSE Routine 08/03/2017 9:06 PM CDT POC GLUCOSE Routine 08/03/2017 5:31 PM CDT XR CHEST 1 VW PORTABLE Routine 08/03/2017 12:58 PM CDT POC GLUCOSE Routine 08/03/2017 7:36 AM CDT ZZESTIMATED GFR Routine 08/03/2017 5:23 AM CDT HC COMPLETE BLD COUNT W/AUTO Routine 08/03/2017 5:23 AM CDT Results for this DIFF procedure are in the results section. BASIC METABOLIC PANEL Routine 08/03/2017 5:23 AM CDT POC GLUCOSE Routine 08/03/2017 3:54 AM CDT POC GLUCOSE Routine 08/02/2017 10:04 PM CDT ZZESTIMATED GFR Routine 08/02/2017 5:00 PM CDT HEMOGLOBIN & HEMATOCRIT Routine 08/02/2017 5:00 PM CDT BASIC METABOLIC PANEL Routine 08/02/2017 5:00 PM CDT POC GLUCOSE Routine 08/02/2017 4:56 PM CDT ARTERIAL LINE Routine 08/02/2017 1:29 PM CDT Procedure Note - Alex Chapman, SOFTWARE DEVELOPMENT PROJECT MANAGER - 08/02/2017 1:29 PM CDT Arterial line Performed by: ALEX CHAPMAN Authorized by: JULES AGUILERA Patient Location: OR Start Time: 08/02/2017 1:18 PM End Time: 08/02/2017 1:20 PM Staff: Performed by: Anesthesiologist Pre-procedure: patient identified, IV checked, site and side verified, risks and benefits discussed, procedure verified, surgical consent complete, patient position confirmed, monitors and equipment checked and pre-op evaluation complete MSBT: antiseptic used, all elements of maximal sterile barrier technique followed, hand hygiene performed, cap/gown used by other personnel and solutions labeled TIme Out Performed: 08/02/2017 1:18 PM Indications: Indications: hemodynamic monitoring Anesthesia: Anesthesia: General Procedure Details: Arterial Line placement: Placed post induction Line placement site: Radial Line placement side: Right Arterial line gauge: 20 G Number of attempts: 1 Ultrasound guidance used: No Post-procedure: Post-procedure: Sterile dressing applied Post procedure circulation, sensation, movement: Unable to assess Patient tolerance: Patient tolerated the procedure well with no immediate complications NEPHRECTOMY, RADICAL 08/02/2017 12:15 PM CDT Renal cancer, unspecified laterality Case Notes EST 2.5 HRS Special Needs EST 2.5 HRS POC GLUCOSE Routine 08/02/2017 10:31 Results for this AM CDT procedure are in the results section. SURGICAL PATHOLOGY Routine 08/02/2017 8:38 Results for this REQUEST AM CDT procedure are in the results section. ECG PRE/POST OP Routine 08/01/2017 1:45 Preop examination Results for this PM CDT Chronic atrial procedure are in fibrillation the results Essential section. hypertension Type 2 diabetes mellitus with complication, unspecified ad terminal makeup operator insulin use status PREPARE RBC Routine 08/01/2017 1:14 Results for this PM CDT procedure are in the results section. ZZESTIMATED GFR Routine 08/01/2017 1:14 Results for this PM CDT procedure are in the results section. URINALYSIS SCREEN AND Routine 08/01/2017 1:14 Preop examination Results for this MICROSCOPY, WITH PM CDT procedure are in REFLEX TO CULTURE the results section. CBC HEMOGRAM Routine 08/01/2017 1:14 Preop examination Results for this PM CDT procedure are in the results section. TYPE AND SCREEN Routine 08/01/2017 1:14 Preop examination Results for this PM CDT procedure are in the results section. HEMOGLOBIN A1C Routine 08/01/2017 1:14 Preop examination Results for this PM CDT Type 2 diabetes procedure are in mellitus with the results complication, section. unspecified ad terminal makeup operator insulin use status PARTIAL THROMBOPLASTIN Routine 08/01/2017 1:14 Preop examination Results for this TIME (PTT) PM CDT Anticoagulant procedure are in long-term use the results section. PROTHROMBIN TIME WITH Routine 08/01/2017 1:14 Preop examination Results for this INR PM CDT Anticoagulant procedure are in long-term use the results section. COMPREHENSIVE Routine 08/01/2017 1:14 Preop examination Results for this METABOLIC PANEL PM CDT Type 2 diabetes procedure are in mellitus with the results complication, section. unspecified ad terminal makeup operator insulin use status GRAM STAIN Routine 08/01/2017 1:14 Results for this PM CDT procedure are in the results section. URINE CULTURE Routine 08/01/2017 1:14 Results for this PM CDT procedure are in the results section. POC GLUCOSE Routine 07/14/2017 4:25 Results for this PM GROUP FITNESS MANAGER procedure are in the results section. CT CHEST WO CONTRAST STAT 07/14/2017 1:04 Results for this PM GROUP FITNESS MANAGER procedure are in the results section. CT HEAD WO CONTRAST STAT 07/14/2017 1:04 Results for this PM GROUP FITNESS MANAGER procedure are in the results section. ANTI XA, Routine 07/14/2017 12:06 Results for this UNFRACTIONATED PM GROUP FITNESS MANAGER procedure are in the results section. POC GLUCOSE Routine 07/14/2017 12:05 Results for this PM GROUP FITNESS MANAGER procedure are in the results section. POC GLUCOSE Routine 07/14/2017 8:21 Results for this AM GROUP FITNESS MANAGER procedure are in the results section. PROTHROMBIN TIME WITH Routine 07/14/2017 5:25 Results for this INR AM GROUP FITNESS MANAGER procedure are in the results section. ANTI XA, Routine 07/14/2017 5:25 Results for this UNFRACTIONATED AM GROUP FITNESS MANAGER procedure are in the results section. ZZESTIMATED GFR Routine 07/14/2017 4:00 Results for this AM GROUP FITNESS MANAGER procedure are in the results section. BASIC METABOLIC PANEL Routine 07/14/2017 4:00 Results for this AM GROUP FITNESS MANAGER procedure are in the results section. MAGNESIUM LEVEL Routine 07/14/2017 4:00 Results for this AM GROUP FITNESS MANAGER procedure are in the results section. POC GLUCOSE Routine 07/13/2017 8:43 Results for this PM GROUP FITNESS MANAGER procedure are in the results section. POC GLUCOSE Routine 07/13/2017 4:05 Results for this PM GROUP FITNESS MANAGER procedure are in the results section. CT ABDOMEN PELVIS W WO Routine 07/13/2017 1:50 Results for this CONTRAST PM GROUP FITNESS MANAGER procedure are in the results section. POC GLUCOSE Routine 07/13/2017 12:30 Results for this PM GROUP FITNESS MANAGER procedure are in the results section. POC GLUCOSE Routine 07/13/2017 8:04 Results for this AM GROUP FITNESS MANAGER procedure are in the results section. B NATRIURETIC PEPTIDE Routine 07/13/2017 5:30 Results for this AM GROUP FITNESS MANAGER procedure are in the results section. HEMOGLOBIN A1C Routine 07/13/2017 5:30 Results for this AM GROUP FITNESS MANAGER procedure are in the results section. PROTHROMBIN TIME WITH Routine 07/13/2017 5:30 Results for this INR AM GROUP FITNESS MANAGER procedure are in the results section. CBC WITH PLATELET AND Routine 07/13/2017 5:30 Results for this DIFFERENTIAL AM GROUP FITNESS MANAGER procedure are in the results section. ZZESTIMATED GFR Routine 07/13/2017 4:00 Results for this AM GROUP FITNESS MANAGER procedure are in the results section. PHOSPHORUS LEVEL Routine 07/13/2017 4:00 Results for this AM GROUP FITNESS MANAGER procedure are in the results section. T4, FREE Routine 07/13/2017 4:00 Results for this AM GROUP FITNESS MANAGER procedure are in the results section. THYROID STIMULATING Routine 07/13/2017 4:00 Results for this HORMONE AM GROUP FITNESS MANAGER procedure are in the results section. MAGNESIUM LEVEL Routine 07/13/2017 4:00 Results for this AM GROUP FITNESS MANAGER procedure are in the results section. BASIC METABOLIC PANEL Routine 07/13/2017 4:00 Results for this AM GROUP FITNESS MANAGER procedure are in the results section. POC GLUCOSE Routine 07/13/2017 3:59 Results for this AM GROUP FITNESS MANAGER procedure are in the results section. POC GLUCOSE Routine 07/12/2017 11:36 Results for this PM GROUP FITNESS MANAGER procedure are in the results section. POC GLUCOSE Routine 07/12/2017 9:13 Results for this PM GROUP FITNESS MANAGER procedure are in the results section. URINE EOSINOPHILS Routine 07/12/2017 6:13 Results for this PM GROUP FITNESS MANAGER procedure are in the results section. CREATININE LEVEL, Routine 07/12/2017 6:13 Results for this URINE, RANDOM PM GROUP FITNESS MANAGER procedure are in the results section. SODIUM LEVEL, URINE, Routine 07/12/2017 6:13 Results for this RANDOM PM GROUP FITNESS MANAGER procedure are in the results section. ECG 12-LEAD Routine 07/12/2017 5:24 Results for this PM GROUP FITNESS MANAGER procedure are in the results section. POC GLUCOSE Routine 07/12/2017 5:16 Results for this PM GROUP FITNESS MANAGER procedure are in the results section. ZZESTIMATED GFR Routine 07/12/2017 2:02 Results for this PM GROUP FITNESS MANAGER procedure are in the results section. PROTHROMBIN TIME WITH Routine 07/12/2017 2:02 Results for this INR PM GROUP FITNESS MANAGER procedure are in the results section. MAGNESIUM LEVEL Routine 07/12/2017 2:02 Results for this PM GROUP FITNESS MANAGER procedure are in the results section. HC COMPLETE BLD COUNT Routine 07/12/2017 2:02 Results for this W/AUTO DIFF PM GROUP FITNESS MANAGER procedure are in the results section. BASIC METABOLIC PANEL Routine 07/12/2017 2:02 Results for this PM GROUP FITNESS MANAGER procedure are in the results section. B NATRIURETIC PEPTIDE Routine 07/12/2017 2:02 Results for this PM GROUP FITNESS MANAGER procedure are in the results section. POC GLUCOSE Routine 07/12/2017 1:26 Results for this PM GROUP FITNESS MANAGER procedure are in the results section. US RENAL DOPPLER Routine 07/05/2017 11:30 Chronic kidney Results for this AM GROUP FITNESS MANAGER disease, stage III procedure are in (moderate) the results Essential section. 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 hypertension HI ARTHROCENTESIS Routine 06/16/2017 12:10 Primary Results for this ASPIR&/INJ MAJOR PM GROUP FITNESS MANAGER osteoarthritis of procedure are in JT/BURSA W/O US left knee the results Primary section. osteoarthritis of right knee after 04/27/2017 Results XR Knee 4+ Vw Bilateral (12/21/2017 11:38 AM CDT) Narrative Performed At X-rays of the right knee are done.PA, lateral, oblique, standing AP [facility] notch view demonstrate no fracture nor dislocation. X-rays reveal severe arthritis of the medial compartment. X-rays reveal moderate arthritis of the lateral compartment. X-rays reveal moderate arthritis of the patellofemoral compartment. There is medial femoral osteophytes, medial tibial plateau osteophytes, lateral femoral osteophytes, lateral tibial plateau osteophytes and patella osteophytes. X-rays of the left knee are done.PA, lateral, oblique, standing AP notch view demonstrate no fracture nor dislocation. X-rays reveal moderate arthritis of the medial compartment. X-rays reveal mild arthritis of the lateral compartment. X-rays reveal mild arthritis of the patellofemoral compartment. There is medial femoral osteophytes, medial tibial plateau osteophytes, lateral femoral osteophytes and lateral tibial plateau osteophytes. Performing Organization Address [facility] Phone Number [facility] [address] [place] [address] Large Joint Arthrocentesis (12/21/2017 11:00 AM CDT) Narrative Performed At Josemanuel Landrum MD 12/21/2017 12:00 PM Large Joint Arthrocentesis Consent given by: patient Site marked: site marked Timeout: Immediately prior to procedure a time out was called to verify the correct patient, procedure, equipment, senior safety support manager and site/side marked as required Supporting Documentation Indications: pain Procedure Details Ultrasound guided: no Platelet Rich Plasma Used: no PRP Used Location: knee - Bilateral knee Right side: Needle size: 22 G Approach: medial Right knee medications administered: 4 mL hyaluronate sodium, stabilized 88 mg/4 mL Patient tolerance: patient tolerated the procedure well with no immediate complications Left side: Needle size: 22 G Approach: medial Left knee medications administered: 4 mL hyaluronate sodium, stabilized 88 mg/4 mL Patient tolerance: patient tolerated the procedure well with no immediate complications POC glucose (11/17/2017 11:31 AM CDT)Only the most recent of106 resultswithin the time period is included. POC glucose 311 (H) 65 - 99 mg/dL [facility] DEPARTMENT OF PATHOLOGY AND Comment: GENOMIC MEDICINE [facility] Notified RN Meter ID: [id number] Salesforce Administrator: Robert Brown Performing Organization Address City/[facility] Phone Number [facility] DEPARTMENT OF PATHOLOGY AND [address] [place] [address] [employer] MEDICINE Estimated GFR (11/17/2017 5:30 AM CDT)Only the most recent of25 resultswithin the time period is included. GFR Non Af Amer 20 (A) mL/min/1.73 m2 [facility] DEPARTMENT OF PATHOLOGY AND GENOMIC MEDICINE GFR Af Amer 24 (A) mL/min/1.73 m2 [facility] DEPARTMENT OF Comment: PATHOLOGY AND GENOMIC Chronic kidney disease: <60 mL/min/1.73m2 MEDICINE Kidney failure: <15 mL/min/1.73m2 The estimated GFR is calculated from the IDMS-traceable Modification of Diet in Renal Disease Equation. The accuracy of the calculation is poor when the creatinine is normal. Calculated values >90 mL/min/1.73m2 are not reported. This equation has not been validated in children (<18 years), women, the elderly (>70 years), or ethnic groups other than Caucasians and Americans. Specimen Plasma specimen Performing Organization Address City/[facility] Phone Number [facility] DEPARTMENT OF PATHOLOGY AND [address] [place] [address] Prothrombin time with INR (11/17/2017 5:30 AM CDT)Only the most recent of23 resultswithin the time period is included. Prothrombin time 18.2 (H) 12.0 - 15.0 sec [facility] DEPARTMENT OF PATHOLOGY AND [employer] MEDICINE INR 1.5 [facility] DEPARTMENT OF Comment: PATHOLOGY AND [employer] The International Normalized Ratio (INR) is a therapeutic MEDICINE monitoring tool for patients who are stable on oral anticoagulant therapy. An INR of 2.0-3.0 is suggested for deep vein thrombosis/pulmonary embolism. Specimen Blood Performing Organization Address City/[facility] Phone Number [facility] DEPARTMENT OF PATHOLOGY AND [address] [place] [address] [employer] [facility] CBC with platelet and differential (11/17/2017 5:30 AM CDT)Only the most recent of20 resultswithin the time period is included. WBC 9.63 4.50 - 11.00 k/uL [facility] DEPARTMENT OF PATHOLOGY AND GENOMIC MEDICINE RBC 3.98 (L) 4.20 - 5.50 m/uL [facility] DEPARTMENT OF PATHOLOGY AND GENOMIC MEDICINE HGB 11.5 (L) 12.0 - 16.0 g/dL [facility] DEPARTMENT OF PATHOLOGY AND GENOMIC MEDICINE HCT 35.4 (L) 37.0 - 47.0 % [facility] DEPARTMENT OF PATHOLOGY AND GENOMIC MEDICINE MCV 88.9 82.0 - 100.0 fL [facility] DEPARTMENT OF PATHOLOGY AND GENOMIC MEDICINE MCH 28.9 27.0 - 34.0 pg [facility] DEPARTMENT OF PATHOLOGY AND GENOMIC MEDICINE MCHC 32.5 31.0 - 37.0 g/dL [facility] DEPARTMENT OF PATHOLOGY AND GENOMIC MEDICINE RDW - SD 43.2 37.0 - 55.0 fL [facility] DEPARTMENT OF PATHOLOGY AND GENOMIC MEDICINE MPV 11.0 8.8 - 13.2 fL [facility] DEPARTMENT OF PATHOLOGY AND GENOMIC MEDICINE Platelet count 242 150 - 400 k/uL [facility] DEPARTMENT OF PATHOLOGY AND GENOMIC MEDICINE Nucleated RBC 0.00 /100 WBC [facility] DEPARTMENT OF PATHOLOGY AND GENOMIC MEDICINE Neutrophils 55.9 39.0 - 69.0 % [facility] DEPARTMENT OF PATHOLOGY AND GENOMIC MEDICINE Lymphocytes 29.4 25.0 - 45.0 % [facility] DEPARTMENT OF PATHOLOGY AND GENOMIC MEDICINE Monocytes 9.3 0.0 - 10.0 % [facility] DEPARTMENT OF PATHOLOGY AND GENOMIC MEDICINE Eosinophils 4.5 0.0 - 5.0 % [facility] DEPARTMENT OF PATHOLOGY AND GENOMIC MEDICINE Basophils 0.6 0.0 - 1.0 % [facility] DEPARTMENT OF PATHOLOGY AND GENOMIC MEDICINE Immature granulocytes 0.3Comment: 0.0 - 1.0 % [facility] DEPARTMENT OF "Immature PATHOLOGY AND GENOMIC granulocytes" MEDICINE (promyelocytes, myelocytes, metamyelocytes) Specimen Blood Performing Organization Address City/State/Zipcode Phone Number [facility] DEPARTMENT OF PATHOLOGY AND [address] [place] [address] GENOMIC MEDICINE Basic metabolic panel (11/17/2017 5:30 AM CDT)Only the most recent of23 resultswithin the time period is included. Sodium 138 135 - 148 mEq/L [facility] DEPARTMENT OF PATHOLOGY AND GENOMIC MEDICINE Potassium 3.9 3.5 - 5.0 mEq/L [facility] DEPARTMENT OF PATHOLOGY AND GENOMIC MEDICINE Chloride 99 98 - 112 mEq/L [facility] DEPARTMENT OF PATHOLOGY AND GENOMIC MEDICINE CO2 26 24 - 31 mEq/L [facility] DEPARTMENT OF PATHOLOGY AND GENOMIC MEDICINE Anion gap 13@ANIO 7 - 15 mEq/L [facility] DEPARTMENT OF PATHOLOGY AND GENOMIC MEDICINE BUN 33 (H) 8 - 23 mg/dL [facility] DEPARTMENT OF PATHOLOGY AND GENOMIC MEDICINE Creatinine 2.4 (H) 0.5 - 0.9 mg/dL [facility] DEPARTMENT OF PATHOLOGY AND GENOMIC MEDICINE Glucose 142 (H) 65 - 99 mg/dL [facility] DEPARTMENT OF PATHOLOGY AND GENOMIC MEDICINE Calcium 8.8 8.8 - 10.2 mg/dL [facility] DEPARTMENT OF PATHOLOGY AND GENOMIC MEDICINE Specimen Plasma specimen Performing Organization Address [facility] Phone Number [facility] DEPARTMENT OF PATHOLOGY AND [address] [place] [address] Magnesium level (11/16/2017 4:00 AM CDT)Only the most recent of17 resultswithin the time period is included. Magnesium 1.9 1.6 - 2.4 mg/dL [facility] DEPARTMENT OF PATHOLOGY AND GENOMIC MEDICINE Specimen Plasma specimen Performing Organization Address [facility] Phone Number [facility] DEPARTMENT OF PATHOLOGY AND [address] [place] [address] Surgical pathology request (11/14/2017 5:04 PM CDT)Only the most recent of3 resultswithin the time period is included. [facility] DEPARTMENT OF PATHOLOGY AND GENOMIC MEDICINE Surgical pathology report See link below for PDF [facility] DEPARTMENT OF Lab Report PATHOLOGY AND GENOMIC MEDICINE Result status This is Final Report to [facility] DEPARTMENT OF [id number] PATHOLOGY AND GENOMIC MEDICINE Performing Organization Address [facility] Phone Number [facility] DEPARTMENT OF PATHOLOGY AND [address] [place] [address] Anti Xa, unfractionated (11/14/2017 5:40 AM CDT)Only the most recent of11 resultswithin the time period is included. Anti Xa, unfractionated <0.10 (L)Comment: 0.30 - 0.70 U/mL [facility] DEPARTMENT OF Therapeutic Range: PATHOLOGY AND GENOMIC 0.30 - 0.70 U/mL MEDICINE Specimen Blood Performing Organization Address [facility] Phone Number [facility] DEPARTMENT OF PATHOLOGY AND [address] [place] [address] CT Abdomen Pelvis Wo Contrast (11/09/2017 5:59 PM CDT)Only the most recent of2 resultswithin the time period is included. Narrative Performed At EXAMINATION:CT ABDOMEN PELVIS WO CONTRAST [facility] CLINICAL HISTORY:left flank pain hx peristomal hernia TECHNIQUE: Multiple axial images of the abdomen and pelvis were obtained without intravenous administration of iodinated contrast. Sagittal and coronal computerized reformatted images were also obtained. The lack of intravenous contrast reduces the sensitivity of detecting solid organ disease. Enteric contrast was administered. CT imaging was performed with iterative reconstruction technique and/or automated exposure control reduced radiation dose. COMPARISON:September 09, 2017 FINDINGS: The visualized lung bases are clear. Abdomen: 1. Limited evaluation of the unenhanced liver, spleen, and pancreas is grossly unremarkable, though not considered to diagnostic standards given absence of IV contrast. There is moderate pancreatic atrophy. Nonmasslike enlargement of the adrenal glands is stable and most compatible with adrenal hypertrophy. 2. There is a single nonobstructing 0.2 cm right renal calculus. The patient appears be status post left nephrectomy. A small amount of nonencapsulated fluid has developed in the left posterior pararenal space adjacent to the medial aspect of the spleen. 3. Small layering stones are present within the gallbladder. The pancreatic and biliary ducts are not dilated. The abdominal aorta is normal caliber. 4. The bowel is not dilated. The opacified small bowel and colon are unremarkable. Diverticulosis is present throughout the colon, though without gross evidence of diverticulitis. 5. There has been interval repair of the left abdominal wall defect and hernia within internal mesh in place. There is no evidence of residual or recurrent hernia. Stranding within the deep subcutaneous tissues adjacent to the abdominal wall at the repair site and nonencapsulated 1.2 x 2.7 cm fluid between the mesh and posterior aspect of the abdominal wall at the repair site may represent residual postsurgical inflammation or hematoma, as there is no evidence of a well-defined wall or internal gas to confirm infection/abscess at this time. Pelvis: 1. Hysterectomy. The bladder is unremarkable. 2. Small bilateral inguinal hernias containing only fat. 3. There is no acute osseous pathology. IMPRESSION: 1. Interval abdominal wall hernia repair without residual or recurrent hernia. 2. Fluid and inflammation along the repair site as described above may represent simple postsurgical inflammation and/or hematoma given absence of full encapsulation or gas. Early abscess/infection cannot be excluded. 3. Please see above for full details. [facility]-[id number] Procedure Note Hm Interface, Radiology Results Incoming - 11/09/2017 6:29 PM CDT EXAMINATION: CT ABDOMEN PELVIS WO CONTRAST CLINICAL HISTORY: left flank pain hx peristomal hernia TECHNIQUE: Multiple axial images of the abdomen and pelvis were obtained without intravenous administration of iodinated contrast. Sagittal and coronal computerized reformatted images were also obtained. The lack of intravenous contrast reduces the sensitivity of detecting solid organ disease. Enteric contrast was administered. CT imaging was performed with iterative reconstruction technique and/or automated exposure control reduced radiation dose. COMPARISON: September 09, 2017 FINDINGS: The visualized lung bases are clear. Abdomen: 1. Limited evaluation of the unenhanced liver, spleen, and pancreas is grossly unremarkable, though not considered to diagnostic standards given absence of IV contrast. There is moderate pancreatic atrophy. Nonmasslike enlargement of the adrenal glands is stable and most compatible with adrenal hypertrophy. 2. There is a single nonobstructing 0.2 cm right renal calculus. The patient appears be status post left nephrectomy. A small amount of nonencapsulated fluid has developed in the left posterior pararenal space adjacent to the medial aspect of the spleen. 3. Small layering stones are present within the gallbladder. The pancreatic and biliary ducts are not dilated. The abdominal aorta is normal caliber. 4. The bowel is not dilated. The opacified small bowel and colon are unremarkable. Diverticulosis is present throughout the colon, though without gross evidence of diverticulitis. 5. There has been interval repair of the left abdominal wall defect and hernia within internal mesh in place. There is no evidence of residual or recurrent hernia. Stranding within the deep subcutaneous tissues adjacent to the abdominal wall at the repair site and nonencapsulated 1.2 x 2.7 cm fluid between the mesh and posterior aspect of the abdominal wall at the repair site may represent residual postsurgical inflammation or hematoma, as there is no evidence of a well-defined wall or internal gas to confirm infection/abscess at this time. Pelvis: 1. Hysterectomy. The bladder is unremarkable. 2. Small bilateral inguinal hernias containing only fat. 3. There is no acute osseous pathology. IMPRESSION: 1. Interval abdominal wall hernia repair without residual or recurrent hernia. 2. Fluid and inflammation along the repair site as described above may represent simple postsurgical inflammation and/or hematoma given absence of full encapsulation or gas. Early abscess/infection cannot be excluded. 3. Please see above for full details. [id number] Performing Organization Address City/State/Zipcode Phone Number [facility] [address] [place] [address] US Thyroid Biopsy (11/09/2017 12:38 PM CDT) Narrative Performed At [facility] Procedure: US THYROID BIOPSY Preprocedure Diagnosis: left thyroid nodule TR 5 by ultrasound. Post Procedure Diagnosis: Same Performing Radiologist: George Rodríguez MD Anesthesia Type: Lidocaine 1% buffered with bicarbonate for local anesthesia. Technique: Written informed consent was obtained prior to the procedure. The patient was brought to the ultrasound suite and placed supine on the table. A preprocedure time out was performed.The neck was prepped and draped in usual sterile fashion. 1% lidocaine was used for local anesthesia. Under real-time ultrasound guidance, 8 [id number] fine-needle aspiration specimens were obtained from a 1.5 cm hypoechoic left isthmic thyroid nodule and sent to pathology for analysis. Specimens were determined adequate at the time of the procedure. The patient tolerated the procedure well without immediate complication. Complications: None Estimated Blood Loss: Less than 1 mL Blood/Blood Products Administered: None Grafts/Implants: As described in the above report. Impression: Uncomplicated ultrasound guided thyroid nodule biopsy. [facility]-[id number] Procedure Note Interface, Radiology Results Incoming - 11/09/2017 12:43 PM CDT Procedure: US THYROID BIOPSY Preprocedure Diagnosis: left thyroid nodule TR 5 by ultrasound. Post Procedure Diagnosis: Same Performing Radiologist: George Rodríguez MD Anesthesia Type: Lidocaine 1% buffered with bicarbonate for local anesthesia. Technique: Written informed consent was obtained prior to the procedure. The patient was brought to the ultrasound suite and placed supine on the table. A preprocedure time out was performed. The neck was prepped and draped in usual sterile fashion. 1% lidocaine was used for local anesthesia. Under real-time ultrasound guidance, 8 total 25 -gauge fine-needle aspiration specimens were obtained from a 1.5 cm hypoechoic left isthmic thyroid nodule and sent to pathology for analysis. Specimens were determined adequate at the time of the procedure. The patient tolerated the procedure well without immediate complication. Complications: None Estimated Blood Loss: Less than 1 mL Blood/Blood Products Administered: None Grafts/Implants: As described in the above report. Impression: Uncomplicated ultrasound guided thyroid nodule biopsy. [facility]-[id number] Performing Organization Address City/State/Zipcode Phone Number [facility] [address] [place] [address] Cytology (non-gynecological) request (11/09/2017 12:06 PM CDT) [facility] DEPARTMENT OF PATHOLOGY AND GENOMIC MEDICINE Cytology See link below for PDF [facility] DEPARTMENT OF (non-gynecological) report Lab Report PATHOLOGY AND GENOMIC MEDICINE Result status This is Final Report to [facility] DEPARTMENT OF [id number] PATHOLOGY AND GENOMIC MEDICINE Performing Organization Address [facility] Phone Number [facility] DEPARTMENT OF PATHOLOGY AND [address] [place] [address] GENOMIC MEDICINE ECG 12 lead (11/08/2017 10:33 AM CDT)Only the most recent of4 resultswithin the time period is included. Ventricular rate 61 [facility] MUSE Atrial rate 61 [facility] HI interval 282 [facility] QRSD interval 112 [facility] M[facility] QT interval 476 [facility] QTC interval 479 [facility] M[facility] P axis 1 75 [facility] MUSE QRS axis 1 12 [facility] M[facility] T wave axis 17 [facility] M[facility] EKG impression Sinus rhythm with 1st degree AV block-Otherwise normal ECG-In automated comparison with ECG of 13-SEP-2017 07:32,-Sinus rhythm has replaced Atrial fibrillation-T wave inversion less evident in Inferior leads-Nonspecific T wave abnormality no longer [facility] MUSE evident in Lateral leads- Performing Organization Address [facility] Phone Number [facility] [address] [place] [address] Cv electrophysiology procedure (11/08/2017 10:29 AM CDT) Narrative Performed At Electrical cardioversion performed for persistent atrial fibrillation: [facility] successful,mac anesthesia present attempt medical cardioversion unsuccesful preprocedure cv medication inclusive of anticoagulation continued post procedure Performing Organization Address [facility] Phone Number [facility] [address] [place] [address] Partial thromboplastin time, activated (11/07/2017 10:33 PM CDT)Only the most recent of3 resultswithin the time period is included. PTT 29.8 23.0 - 36.0 sec [facility] DEPARTMENT OF PATHOLOGY Comment: AND GENOMIC MEDICINE PTT therapeutic range for unfractionated heparin is 61.0-112.0 seconds which corresponds to Anti-Xa 0.3-0.7 U/ml. Specimen Blood Performing Organization Address City/State/[facility] Phone Number [facility] DEPARTMENT OF PATHOLOGY AND [address] [place] [phone] [place] [address] Phosphorus level (11/07/2017 4:00 PM CDT)Only the most recent of5 resultswithin the time period is included. Phosphorus 2.8 2.4 - 4.5 mg/dL [facility] DEPARTMENT OF PATHOLOGY AND GENOMIC MEDICINE Specimen Plasma specimen Performing Organization Address [facility] Phone Number [facility] DEPARTMENT OF PATHOLOGY AND [address] [place] [address] B natriuretic peptide (11/07/2017 4:00 PM CDT)Only the most recent of9 resultswithin the time period is included. BNP 170 (H) 0 - 100 pg/mL [facility] DEPARTMENT OF PATHOLOGY AND [facility] Specimen Blood Performing Organization Address [facility] Phone Number [facility] DEPARTMENT OF PATHOLOGY AND [address] [place] [address] Hemoglobin A1c (11/07/2017 4:00 PM CDT)Only the most recent of3 resultswithin the time period is included. Hemoglobin A1C 8.0 (H) 4.0 - 5.6 % [facility] DEPARTMENT OF PATHOLOGY Comment: AND [facility] HbA1c cutoffs for diagnosing diabetes: 4.0% - 5.6%=normal 5.7% - 6.4%=increased risk for diabetes (prediabetes) >=6.5%=diabetes Goals for glycemic control (ADA 2016) < 7.0%Target for non adults with diabetes. More or less stringent targets may be appropriate for individual patients. <7.5% Target for Children and adolescents with type 1 diabetes. Specimen Blood Performing Organization Address [facility] Phone Number [facility] DEPARTMENT OF PATHOLOGY AND [address] [place], [place] [id number] [facility] Creatine kinase, total (CPK) (11/07/2017 4:00 PM CDT) Creatine kinase 31 26 - 192 U/L [facility] DEPARTMENT OF PATHOLOGY AND GENOMIC MEDICINE Specimen Plasma specimen Performing Organization Address [facility] Phone Number [facility] DEPARTMENT OF PATHOLOGY AND [address] [place] [phone] [place] [address] XR Abdomen 1 Vw Portable (09/14/2017 12:01 AM CDT)Only the most recent of2 resultswithin the time period is included. Narrative Performed At EXAM:XR ABDOMEN 1 VW PORTABLE [facility] CLINICAL HISTORY:Distention COMPARISON:CT abdomen and pelvis, 09/09/2017; radiograph, 08/05/2017 IMPRESSION: Left lower quadrant cutaneous yaneli are noted. Postsurgical clips are again seen. The bowel gas pattern is nondilated, nonobstructive. Moderate amount of colonic stool is present. No pathologic masses or calcifications are identified. The lung bases are free of acute disease. No acute osseous abnormality identified. [facility]-[id number] Procedure Note Interface, Radiology Results Incoming - 09/14/2017 12:12 AM CDT EXAM: XR ABDOMEN 1 VW PORTABLE CLINICAL HISTORY: Distention COMPARISON: CT abdomen and pelvis, 09/09/2017; radiograph, 08/05/2017 IMPRESSION: Left lower quadrant cutaneous yaneli are noted. Postsurgical clips are again seen. The bowel gas pattern is nondilated, nonobstructive. Moderate amount of colonic stool is present. No pathologic masses or calcifications are identified. The lung bases are free of acute disease. No acute osseous abnormality identified. [facility]-[id number] Performing Organization Address City/State/Zipcode Phone Number [facility] [address] [place] [address] [place] Thyroid (09/11/2017 12:57 PM CDT) Narrative Performed At EXAMINATION:US THYROID [facility] CLINICAL HISTORY:Abnormal thyroid function tests COMPARISON:None. TECHNIQUE: Transverse and longitudinal sonographic images of the thyroid gland were obtained. Grayscale and color Doppler images were also obtained. IMPRESSION: 1.TR 5 nodule in the left lobe. Recommend FNA/pathologic correlation. 2.Nonspecific background of heterogeneous thyroid parenchyma. FINDINGS: Thyroid is low normal size. Right lobe measures 3.7 x 1.3 x 1.5 cm, left lobe 4.0 x 1.3 x 1.3 cm, and the isthmus 0.3 cm in thickness. Thyroid parenchyma is heterogeneous in echogenicity, and heterogeneous in echotexture. NODULE: *Location: Left lobe at the margin of the isthmus *Size: 1.3 x 0.9 x 1.2 cm *Composition: Solid or almost entirely solid - 2 pts *Echogenicity: Very hypoechoic - 3 pts *Shape: Mkijg-hjxz-qvbd - 0 pts *Margin: Lobulated or irregular - 2 pts *Echogenic foci: None or large comet-tail artifacts - 0 pts TOTAL POINTS: 7 ACR TI-RADS GUIDELINES 2017 *0 points: TR1. Benign. No FNA *2 points:TR2. Not suspicious. No FNA *3 points: TR3. Mildly suspicious. FNA if > or=2.5 cm. Follow if > or=1.5 cm *4-6 points: TR4. Moderately suspicious. FNA if > or=1.5 cm. Follow if > or=1 cm *7 or more points: TR5. Highly suspicious. FNA if > or=1 cm. Follow if > or=0.5 cm Follow-up of TR3-TR5 nodules that do not meet biopsy criteria: *TR3: 1,3 and 5 years *TR4: 1,2,3 and 5 years *TR5: 1,2,3,4 and 5 years Any nodule that is stable for 5 years regardless of TI-RADS level is considered benign Any nodule whose TI-RADS level increases should have 1 year followup regardless of initial level DESCRIPTION of CRITERIA: COMPOSITION (choose 1): *Spongiform: Composed predominantly (greater than 50%) of small cystic spaces. Do not add further points for other categories *Mixed cystic and solid: Assign points for predominant solid component *Assign 2 points if composition cannot be determined because of calcification ECHOGENICITY (choose 1): *Anechoic: Applies to cystic or almost completely cystic nodules *Hyperechoic/isoechoic/hypoechoic: Compared to adjacent parenchyma *Very hypoechoic: More hypoechoic than strap muscles *Assign 1 point if echogenicity cannot be determined SHAPE (choose 1): *Pqvrgq-dure-ehdx: Should be assessed on a transverse image with measurements parallel to sound beam for height and perpendicular to sound beam for width. This can usually be assessed by visual inspection. MARGIN (choose 1): *Lobulated: Protrusions into adjacent tissue. *Irregular: Jagged, spiculated, or sharp angles *Extrathyroidal extension: Obvious invasion equals malignancy *Assign 0 points if margin cannot be determined ECHOGENIC FOCI (choose 1 or more): *Large comet-tail artifacts: V-shaped, > 1 mm, or in cystic components *Macrocalcifications: Cause acoustic shadowing *Peripheral: Complete or incomplete along margin *Punctate echogenic foci: May have small, comet-tail artifact If there are multiple nodules, only the highest (up to 4) scoring nodules should be reported and followed For nodules that meet TI-RADS FNA criteria, only the TWO highest scoring nodules should be sampled Significant enlargement is defined as a 20% increase in at least 2 nodular dimensions and a minimal increase of 2 mm, or a 50% or greater increase in volume Thank you for allowing us to participate in the care of your patient. [facility]-[id number] Procedure Note [facility], Radiology Results Incoming - 09/11/2017 1:15 PM CDT EXAMINATION: US THYROID CLINICAL HISTORY: Abnormal thyroid function tests COMPARISON: None. TECHNIQUE: Transverse and longitudinal sonographic images of the thyroid gland were obtained. Grayscale and color Doppler images were also obtained. IMPRESSION: 1. TR 5 nodule in the left lobe. Recommend FNA/pathologic correlation. 2. Nonspecific background of heterogeneous thyroid parenchyma. FINDINGS: Thyroid is low normal size. Right lobe measures 3.7 x 1.3 x 1.5 cm, left lobe 4.0 x 1.3 x 1.3 cm, and the isthmus 0.3 cm in thickness. Thyroid parenchyma is heterogeneous in echogenicity, and heterogeneous in echotexture. NODULE: * Location: Left lobe at the margin of the isthmus * Size: 1.3 x 0.9 x 1.2 cm * Composition: Solid or almost entirely solid - 2 pts * Echogenicity: Very hypoechoic - 3 pts * Shape: Umoui-doxx-uwoq - 0 pts * Margin: Lobulated or irregular - 2 pts * Echogenic foci: None or large comet-tail artifacts - 0 pts TOTAL POINTS: 7 ACR TI-RADS GUIDELINES 2017 * 0 points: TR1. Benign. No FNA * 2 points: TR2. Not suspicious. No FNA * 3 points: TR3. Mildly suspicious. FNA if > or=2.5 cm. Follow if > or =1.5 cm * 4-6 points: TR4. Moderately suspicious. FNA if > or=1.5 cm. Follow if > or= 1 cm * 7 or more points: TR5. Highly suspicious. FNA if > or=1 cm. Follow if > or= 0.5 cm Follow-up of TR3-TR5 nodules that do not meet biopsy criteria: * TR3: 1,3 and 5 years * TR4: 1,2,3 and 5 years * TR5: 1,2,3,4 and 5 years Any nodule that is stable for 5 years regardless of TI-RADS level is considered benign Any nodule whose TI-RADS level increases should have 1 year followup regardless of initial level DESCRIPTION of CRITERIA: COMPOSITION (choose 1): * Spongiform: Composed predominantly (greater than 50%) of small cystic spaces. Do not add further points for other categories * Mixed cystic and solid: Assign points for predominant solid component * Assign 2 points if composition cannot be determined because of calcification ECHOGENICITY (choose 1): * Anechoic: Applies to cystic or almost completely cystic nodules * Hyperechoic/isoechoic/hypoechoic: Compared to adjacent parenchyma * Very hypoechoic: More hypoechoic than strap muscles * Assign 1 point if echogenicity cannot be determined SHAPE (choose 1): * Hrjlyx-njhm-vyvu: Should be assessed on a transverse image with measurements parallel to sound beam for height and perpendicular to sound beam for width. This can usually be assessed by visual inspection. MARGIN (choose 1): * Lobulated: Protrusions into adjacent tissue. * Irregular: Jagged, spiculated, or sharp angles * Extrathyroidal extension: Obvious invasion equals malignancy * Assign 0 points if margin cannot be determined ECHOGENIC FOCI (choose 1 or more): * Large comet-tail artifacts: V-shaped, > 1 mm, or in cystic components * Macrocalcifications: Cause acoustic shadowing * Peripheral: Complete or incomplete along margin * Punctate echogenic foci: May have small, comet-tail artifact If there are multiple nodules, only the highest (up to 4) scoring nodules should be reported and followed For nodules that meet TI-RADS FNA criteria, only the TWO highest scoring nodules should be sampled Significant enlargement is defined as a 20% increase in at least 2 nodular dimensions and a minimal increase of 2 mm, or a 50% or greater increase in volume Thank you for allowing us to participate in the care of your patient. [facility]-[id number] Performing Organization Address City/[facility]/Zipcode Phone Number [facility] [address] [place] [phone] Thyroid stimulating hormone (09/11/2017 4:25 AM CDT)Only the most recent of3 resultswithin the time period is included. TSH 1.35 0.27 - 4.20 uIU/mL [facility] DEPARTMENT OF PATHOLOGY AND GENOMIC MEDICINE Specimen Plasma specimen Performing Organization Address City/[facility] Phone Number [facility] DEPARTMENT PATHOLOGY AND [address] [place] [phone] [facility] T4, free (09/11/2017 4:25 AM CDT)Only the most recent of3 resultswithin the time period is included. T4, free 1.1 0.9 - 1.7 ng/dL [facility] DEPARTMENT OF PATHOLOGY AND GENOMIC MEDICINE Specimen Plasma specimen Performing Organization Address [facility] Phone Number [facility] DEPARTMENT PATHOLOGY AND [address] [place] [phone] [facility] Comprehensive metabolic panel (09/11/2017 4:25 AM CDT)Only the most recent of2 resultswithin the time period is included. Sodium 141 135 - 148 mEq/L [facility] DEPARTMENT OF PATHOLOGY AND GENOMIC MEDICINE Potassium 4.9 3.5 - 5.0 mEq/L [facility] DEPARTMENT OF PATHOLOGY AND GENOMIC MEDICINE Chloride 106 98 - 112 mEq/L [facility] DEPARTMENT OF PATHOLOGY AND GENOMIC MEDICINE CO2 21 (L) 24 - 31 mEq/L [facility] DEPARTMENT OF PATHOLOGY AND GENOMIC MEDICINE Anion gap 14 7 - 15 mEq/L [facility] DEPARTMENT OF Comment: PATHOLOGY AND GENOMIC Starting from August , anion gap calculation MEDICINE no longer incorporates potassium. Please note the change. BUN 20 8 - 23 mg/dL [facility] DEPARTMENT OF PATHOLOGY AND GENOMIC MEDICINE Creatinine 2.1 (H) 0.5 - 0.9 mg/dL [facility] DEPARTMENT OF PATHOLOGY AND GENOMIC MEDICINE Glucose 186 (H) 65 - 99 mg/dL [facility] DEPARTMENT OF PATHOLOGY AND GENOMIC MEDICINE Calcium 8.5 (L) 8.8 - 10.2 mg/dL [facility] DEPARTMENT OF PATHOLOGY AND GENOMIC MEDICINE Protein 5.5 (L) 6.3 - 8.3 g/dL [facility] DEPARTMENT OF Comment: PATHOLOGY AND GENOMIC 4.6-7.0 g/dL MEDICINE 1 week 4.4-7.6 g/dL 7 months-1year5.1-7.3 g/dL 1-2 years5.6-7.5 g/dL >3 years6.0-8.0 g/dL 18-150 6.3-8.3 g/dL Albumin 2.7 (L) 3.5 - 5.0 g/dL [facility] DEPARTMENT OF PATHOLOGY AND GENOMIC MEDICINE A/G ratio 1.0 0.7 - 3.8 [facility] DEPARTMENT OF PATHOLOGY AND GENOMIC MEDICINE Alkaline phosphatase 65 35 - 104 U/L [facility] DEPARTMENT OF PATHOLOGY AND GENOMIC MEDICINE AST 21 10 - 35 U/L [facility] DEPARTMENT OF PATHOLOGY AND GENOMIC MEDICINE ALT 16 5 - 50 U/L [facility] DEPARTMENT OF PATHOLOGY AND GENOMIC MEDICINE Total bilirubin 0.4 0.0 - 1.2 mg/dL [facility] DEPARTMENT OF PATHOLOGY AND GENOMIC MEDICINE Specimen Plasma specimen Performing Organization Address City/State/Zipcode Phone Number [facility] DEPARTMENT OF PATHOLOGY [address] [address] GENOMIC MEDICINE Lipid panel (09/10/2017 4:00 AM CDT) Cholesterol 108 <200 mg/dL [facility] DEPARTMENT OF PATHOLOGY AND GENOMIC MEDICINE Triglycerides 82 <150 mg/dL [facility] DEPARTMENT OF PATHOLOGY AND GENOMIC MEDICINE HDL cholesterol 46 >40 mg/dL [facility] DEPARTMENT OF PATHOLOGY AND GENOMIC MEDICINE LDL cholesterol 55Comment: Result <100 mg/dL [facility] DEPARTMENT obtained by direct LDL PATHOLOGY AND GENOMIC measurement MEDICINE Lipid panel interpretation SeeBelow [facility] DEPARTMENT OF Comment: PATHOLOGY AND GENOMIC Total Cholesterol (mg/dL) MEDICINE <200 Desirable 143-820Qyfobinlhw-txwz >=240High Triglycerides (mg/dL) <150 Normal 359-700Nfdwebzgbk-ktpn 200-499High >=500Very high HDL Cholesterol (mg/dL) <40Low (male) <40Low (female) LDL Cholesterol (mg/dL) <100 Optimal 100-129Near or above optimal 736-279Houqhavojo-zdqp 160-189High >=190Very high Risk Catergories that modify LDL goals. Risk CatergoriesLDL goal (mg/dL) CHD and CHD risk equivalent<100 (10-year risk >20%) Multiple (2+) risk factors <130 (10-year risk=<20%) 0-1 risk factors <160 (<10-year risk) Defining levels of lipids in metabolic syndrome Triglycerides>=150 mg/dL HDL Cholesterol Men<40 mg/dL Women<40 mg/dL Non-HDL cholesterol is a second target for therapy in persons with high triglycerides (>=200 mg/dL) Specimen Plasma specimen Performing Organization Address City/State/Zipcode Phone Number [facility] DEPARTMENT OF PATHOLOGY AND [address] [place] [address] GENOMIC MEDICINE Urinalysis screen and microscopy, with reflex to culture (09/09/2017 5:45 AM CDT)Only the most recent of2 resultswithin the time period is included. Specimen site Clean catch [facility] DEPARTMENT OF PATHOLOGY AND GENOMIC MEDICINE Color, UA Straw [facility] DEPARTMENT OF PATHOLOGY AND GENOMIC MEDICINE Appearance, UA Clear [facility] DEPARTMENT OF PATHOLOGY AND GENOMIC MEDICINE Specific gravity, UA 1.013 1.001 - 1.035 [facility] DEPARTMENT OF PATHOLOGY AND GENOMIC MEDICINE pH, UA 7.0 5.0 - 8.5 [facility] DEPARTMENT OF PATHOLOGY AND GENOMIC MEDICINE Protein, UA 1+ (A) Negative [facility] DEPARTMENT OF PATHOLOGY AND GENOMIC MEDICINE Glucose, UA 1+ (A) Negative [facility] DEPARTMENT OF PATHOLOGY AND GENOMIC MEDICINE Ketones, UA Negative Negative [facility] DEPARTMENT OF PATHOLOGY AND GENOMIC MEDICINE Bilirubin, UA Negative Negative [facility] DEPARTMENT OF PATHOLOGY AND GENOMIC MEDICINE Blood, UA Negative Negative [facility] DEPARTMENT OF PATHOLOGY AND GENOMIC MEDICINE Nitrite, UA Negative Negative [facility] DEPARTMENT OF PATHOLOGY AND GENOMIC MEDICINE Urobilinogen, UA <2.0 <2.0 [facility] DEPARTMENT OF PATHOLOGY AND GENOMIC MEDICINE Leukocyte esterase, UA Large (A) Negative [facility] DEPARTMENT OF PATHOLOGY AND GENOMIC MEDICINE Epithelial cells, UA 3 /HPF [facility] DEPARTMENT OF PATHOLOGY AND GENOMIC MEDICINE Round epithelial cells, UA <1 0 - 1 /HPF [facility] DEPARTMENT OF PATHOLOGY AND GENOMIC MEDICINE WBC, UA 27 (H) 0 - 4 /HPF [facility] DEPARTMENT OF PATHOLOGY AND GENOMIC MEDICINE RBC, UA 1 0 - 5 /HPF [facility] DEPARTMENT OF PATHOLOGY AND GENOMIC MEDICINE Bacteria, UA None seen None seen [facility] DEPARTMENT OF PATHOLOGY AND GENOMIC MEDICINE WBC clumps, UA Few (A) [facility] DEPARTMENT OF PATHOLOGY AND GENOMIC MEDICINE Yeast, UA None seen [facility] DEPARTMENT OF PATHOLOGY AND GENOMIC MEDICINE Yeast with pseudohyphae, UA None seen [facility] DEPARTMENT OF PATHOLOGY AND GENOMIC MEDICINE Specimen Urine Performing Organization Address [facility] Phone Number [facility] DEPARTMENT OF PATHOLOGY AND [address] [place] [address] GENOMIC MEDICINE Gram stain (09/09/2017 5:25 AM CDT)Only the most recent of2 resultswithin the time period is included. Gram stain result Rare WBC's [facility] DEPARTMENT OF PATHOLOGY Many Gram positive rods AND GENOMIC MEDICINE Comment: Specimen Information Specimen Source: Urine Specimen Site: Clean catch Specimen Urine Performing Organization Address City/[facility] Cent[facility]ode Phone Number [facility] DEPARTMENT OF PATHOLOGY AND [address] [place] [address] MEDICINE Urine culture (09/09/2017 5:25 AM CDT)Only the most recent of2 resultswithin the time period is included. Urine culture isolate Mixed Gram positive heather [facility] DEPARTMENT OF 10-3 cfu/ml PATHOLOGY AND GENOMIC (A) MEDICINE Comment: Specimen Information Specimen Source: Urine Specimen Site: Clean catch Specimen Urine Narrative Performed At [facility] [id number] added adn read back to [facility] DEPARTMENT OF PATHOLOGY AND GENOMIC Ihaza at 15:54 09/09/17 [id number] MEDICINE ?Specimen must be received in the laboratory within 2 hours of ?collection. ?Specimen Source->Urine Performing Organization Address [facility] Phone Number [facility] DEPARTMENT OF PATHOLOGY AND [address] [place] [address] GENOMIC MEDICINE Lipase level (09/09/2017 2:51 AM CDT) Lipase 19 13 - 60 U/L [facility] DEPARTMENT OF PATHOLOGY AND GENOMIC MEDICINE Specimen Plasma specimen Performing Organization Address [facility] Cent[facility]ode Phone Number [facility] DEPARTMENT OF PATHOLOGY AND [address] [place] [address] GENOMIC MEDICINE Hepatic function panel (09/09/2017 2:51 AM CDT) Albumin 3.4 (L) 3.5 - 5.0 g/dL [facility] DEPARTMENT OF PATHOLOGY AND GENOMIC MEDICINE Total bilirubin 0.5 0.0 - 1.2 mg/dL [facility] DEPARTMENT OF PATHOLOGY AND GENOMIC MEDICINE Bilirubin direct <0.2 0.0 - 0.3 mg/dL [facility] DEPARTMENT OF PATHOLOGY AND GENOMIC MEDICINE Alkaline phosphatase 78 35 - 104 U/L [facility] DEPARTMENT OF PATHOLOGY AND GENOMIC MEDICINE Protein 6.5 6.3 - 8.3 g/dL [facility] DEPARTMENT OF Comment: PATHOLOGY AND GENOMIC 4.6-7.0 g/dL MEDICINE 1 week 4.4-7.6 g/dL 7 months-1year5.1-7.3 g/dL 1-2 years5.6-7.5 g/dL >3 years6.0-8.0 g/dL 18-150 6.3-8.3 g/dL ALT 20 5 - 50 U/L [facility] DEPARTMENT OF PATHOLOGY AND GENOMIC MEDICINE AST 29 10 - 35 U/L [facility] DEPARTMENT OF PATHOLOGY AND GENOMIC MEDICINE Specimen Plasma specimen Performing Organization Address City/[facility] Phone Number [facility] DEPARTMENT OF PATHOLOGY AND [address] [place] [address] GENOMIC MEDICINE ECG ED Preliminary Interpretation - NOT AN ORDER (09/09/2017 2:03 AM CDT) Narrative Performed At Cindi Fink MD 09/12/2017 10:58 PM ECG ED Preliminary Interpretation - Not an Order Performed by: CINDI FINK Authorized by: CINDI FINK ECG reviewed by ED Physician in the absence of a manager construction: yes Previous ECG: Previous ECG:Unavailable Interpretation: Interpretation: abnormal Rate: ECG rate:81 Rhythm: Rhythm: atrial fibrillation Ectopy: Ectopy: none QRS: QRS axis:Normal QRS intervals:Normal Conduction: Conduction: normal ST segments: ST segments:Normal XR Chest 1 Vw Portable (08/05/2017 9:27 AM CDT)Only the most recent of2 resultswithin the time period is included. Narrative Performed At EXAMINATION:XR CHEST 1 VW PORTABLE [facility] CLINICAL HISTORY:Congestive Heart Failure COMPARISON:To previous examination from 08/03/2017 IMPRESSION: Heart is slightly enlarged and mild perihilar and basilar congestive changes are developing. [facility]-[id number] Procedure Note Hm Interface, Radiology Results Incoming - 08/05/2017 9:33 AM CDT EXAMINATION: XR CHEST 1 VW PORTABLE CLINICAL HISTORY: Congestive Heart Failure COMPARISON: To previous examination from 08/03/2017 IMPRESSION: Heart is slightly enlarged and mild perihilar and basilar congestive changes are developing. [facility]-[id number] Performing Organization Address City/[facility] Cent[facility] Phone Number [facility] [address] [place] [address] Hemoglobin & hematocrit (08/02/2017 5:00 PM CDT) HGB 11.2 (L) 12.0 - 16.0 g/dL [facility] DEPARTMENT OF PATHOLOGY AND GENOMIC MEDICINE HCT 34.2 (L) 37.0 - 47.0 % [facility] DEPARTMENT OF PATHOLOGY AND GENOMIC MEDICINE Specimen Blood Performing Organization Address [facility] Phone Number [facility] DEPARTMENT OF PATHOLOGY AND [address] [place] [phone] [facility] MEDICINE ECG Pre/Post Op (08/01/2017 1:45 PM CDT) Ventricular rate 88 [facility] Atrial rate 113 [facility] QRSD interval 106 [facility] QT interval 408 [facility] QTC interval 493 [facility] QRS axis 1 27 [facility] T wave axis 12 [facility] EKG impression Atrial fibrillation-Nonspecific T wave [facility] MUSE abnormality , probably digitalis effect-Prolonged QT-Abnormal ECG- Performing Organization Address [facility] Phone Number [facility] [address] [place] [address] CBC hemogram (08/01/2017 1:14 PM CDT) WBC 10.02 4.50 - 11.00 k/uL [facility] DEPARTMENT OF PATHOLOGY AND GENOMIC MEDICINE RBC 4.72 4.20 - 5.50 m/uL [facility] DEPARTMENT OF PATHOLOGY AND GENOMIC MEDICINE HGB 12.7 12.0 - 16.0 g/dL [facility] DEPARTMENT OF PATHOLOGY AND GENOMIC MEDICINE HCT 39.9 37.0 - 47.0 % [facility] DEPARTMENT OF PATHOLOGY AND GENOMIC MEDICINE MCV 84.5 82.0 - 100.0 fL [facility] DEPARTMENT OF PATHOLOGY AND GENOMIC MEDICINE MCH 26.9 (L) 27.0 - 34.0 pg [facility] DEPARTMENT OF PATHOLOGY AND GENOMIC MEDICINE MCHC 31.8 31.0 - 37.0 g/dL [facility] DEPARTMENT OF PATHOLOGY AND GENOMIC MEDICINE RDW - SD 42.7 37.0 - 55.0 fL [facility] DEPARTMENT OF PATHOLOGY AND GENOMIC MEDICINE MPV 11.8 8.8 - 13.2 fL [facility] DEPARTMENT OF PATHOLOGY AND GENOMIC MEDICINE Platelet count 255 150 - 400 k/uL [facility] DEPARTMENT OF PATHOLOGY AND GENOMIC MEDICINE Nucleated RBC 0.00 /100 WBC [facility] DEPARTMENT OF PATHOLOGY AND GENOMIC MEDICINE Specimen Blood Performing Organization Address [facility] Cent[facility]ode Phone Number [facility] DEPARTMENT OF PATHOLOGY AND [address] [place] [address] [employer] MEDICINE Prepare RBC (08/01/2017 1:14 PM CDT) Product name Red Blood Cells -1, [facility] DEPARTMENT OF Leukored PATHOLOGY AND GENOMIC MEDICINE Unit number [id number] [facility] DEPARTMENT OF PATHOLOGY AND GENOMIC MEDICINE Product code [id number] [facility] DEPARTMENT OF PATHOLOGY AND GENOMIC MEDICINE Dispense status Returned to BB not [facility] DEPARTMENT OF transfused PATHOLOGY AND GENOMIC MEDICINE Blood expiration date [id number] [facility] DEPARTMENT OF PATHOLOGY AND GENOMIC MEDICINE Blood type code 8400 [facility] DEPARTMENT OF PATHOLOGY AND GENOMIC MEDICINE Blood type AB POSITIVE [facility] DEPARTMENT OF PATHOLOGY AND GENOMIC MEDICINE Product name Apheresis -1 LR #1 [facility] DEPARTMENT OF PATHOLOGY AND GENOMIC MEDICINE Unit number [id number] [facility] DEPARTMENT OF PATHOLOGY AND GENOMIC MEDICINE Product code [id number] [facility] DEPARTMENT OF PATHOLOGY AND GENOMIC MEDICINE Dispense status Returned to BB not [facility] DEPARTMENT OF transfused PATHOLOGY AND GENOMIC MEDICINE Blood expiration date [id number] [facility] DEPARTMENT OF PATHOLOGY AND GENOMIC MEDICINE Blood type code 8400 [facility] DEPARTMENT OF PATHOLOGY AND GENOMIC MEDICINE Blood type AB POSITIVE [facility] DEPARTMENT OF PATHOLOGY AND GENOMIC MEDICINE Performing Organization Address [facility] Phone Number [facility] DEPARTMENT OF PATHOLOGY AND [address] [place] [address] GENOMIC MEDICINE Type and screen (08/01/2017 1:14 PM CDT) ABO grouping AB [facility] DEPARTMENT OF PATHOLOGY AND GENOMIC MEDICINE Rh type POS [facility] DEPARTMENT OF PATHOLOGY AND GENOMIC MEDICINE Antibody screen (gel) NEG [facility] DEPARTMENT OF PATHOLOGY AND GENOMIC MEDICINE Specimen Blood Performing Organization Address City/[facility] Phone Number [facility] DEPARTMENT OF PATHOLOGY AND [address] [place] [address] [facility] CT Chest Wo Contrast (07/14/2017 1:04 PM GROUP FITNESS MANAGER) Narrative Performed At PROCEDURE:CT CHEST WO CONTRAST HM [facility] CLINICAL HISTORY:renal malignancyevaluate for lungs metastasis COMPARISON:March 04, 2017 TECHNIQUE: Contiguous 2.5 mm axial images were obtained of the lung apices to the upper abdomen without injection of intravenous iodinated contrast media. 2-D sagittal and coronal reconstructed images were also performed on a multidetector CT scanner using helical scanning technique. The dose length product for this procedure was 237 mGy-cm. CT imaging was performed with iterative reconstruction technique and/or automated exposure control to reduce radiation dose. FINDINGS: 1. Lung parenchymal window settings demonstrate persistent patchy shadowing is seen in the anterior segment of left upper lobe abutting the mediastinum consistent with scarring. 2. Mediastinal window settings demonstrate no axillary, supraclavicular, mediastinal, or hilar lymphadenopathy. Dilatation of the main pulmonary outflow tract is noted and measures 4.1 cm in transverse diameter consistent with pulmonary arterial hypertension. Calcified atheromatous plaque formation is demonstrated of the aortic arch. 3. Bone window settings demonstrate no acute bony abnormality. 4. 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 5. Diffuse thickening is demonstrated of both adrenal glands consistent with bilateral adrenal gland hyperplasia. Tiny nonobstructing calculus measuring 2 mm is seen in the posterior mid right kidney. IMPRESSION: Abnormal study. No evidence of metastatic disease to the chest. Scarring in the left apex. Pulmonary arterial hypertension. [id number] . Procedure Note [facility], Radiology Results Incoming - 07/14/2017 1:29 PM GROUP FITNESS MANAGER PROCEDURE: CT CHEST WO CONTRAST CLINICAL HISTORY: renal malignancy evaluate for lungs metastasis COMPARISON: March 04, 2017 TECHNIQUE: Contiguous 2.5 mm axial images were obtained of the lung apices to the upper abdomen without injection of intravenous iodinated contrast media. 2-D sagittal and coronal reconstructed images were also performed on a multidetector CT scanner using helical scanning technique. The dose length product for this procedure was 237 mGy-cm. CT imaging was performed with iterative reconstruction technique and/or automated exposure control to reduce radiation dose. FINDINGS: 1. Lung parenchymal window settings demonstrate persistent patchy shadowing is seen in the anterior segment of left upper lobe abutting the mediastinum consistent with scarring. 2. Mediastinal window settings demonstrate no axillary, supraclavicular, mediastinal, or hilar lymphadenopathy. Dilatation of the main pulmonary outflow tract is noted and measures 4.1 cm in transverse diameter consistent with pulmonary arterial hypertension. Calcified atheromatous plaque formation is demonstrated of the aortic arch. 3. Bone window settings demonstrate no acute bony abnormality. 4. 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 5. Diffuse thickening is demonstrated of both adrenal glands consistent with bilateral adrenal gland hyperplasia. Tiny nonobstructing calculus measuring 2 mm is seen in the posterior mid right kidney. IMPRESSION: Abnormal study. No evidence of metastatic disease to the chest. Scarring in the left apex. Pulmonary arterial hypertension. [id number] . Performing Organization Address [facility] Phone Number [facility] [address] [place] [address] CT Head Wo Contrast (07/14/2017 1:04 PM GROUP FITNESS MANAGER) Narrative Performed At Study: CT HEAD WO CONTRAST RADIANT History:renal malignancyevaluate for metastasis COMPARISON:None. TECHNIQUE: Multiple axial CT images of the head obtained without IV contrast. CT imaging was performed with iterative reconstruction technique and/or automated exposure control to reduce radiation dose. FINDINGS: Parenchymal volume is normal. There are changes of chronic small vessel ischemic disease There is no acute hemorrhage, midline shift, hydrocephalus, edema, or extra-axial collections. .The visualized paranasal sinuses are well aerated.The mastoid air cells are well aerated. No destructive calvarial lesions are seen. The visualized orbits are unremarkable. IMPRESSION: No acute intracranial abnormality. [id number] Procedure Note Hm Interface, Radiology Results Incoming - 07/14/2017 1:11 PM GROUP FITNESS MANAGER Study: CT HEAD WO CONTRAST History:renal malignancy evaluate for metastasis COMPARISON:None. TECHNIQUE: Multiple axial CT images of the head obtained without IV contrast. CT imaging was performed with iterative reconstruction technique and/or automated exposure control to reduce radiation dose. FINDINGS: Parenchymal volume is normal. There are changes of chronic small vessel ischemic disease There is no acute hemorrhage, midline shift, hydrocephalus, edema, or extra-axial collections. .The visualized paranasal sinuses are well aerated. The mastoid air cells are well aerated. No destructive calvarial lesions are seen. The visualized orbits are unremarkable. IMPRESSION: No acute intracranial abnormality. [facility]-[id number] Performing Organization Address [facility] Phone Number [facility] [address] [place] [address] CT Abdomen Pelvis W Wo Contrast (07/13/2017 1:50 PM GROUP FITNESS MANAGER) Narrative Performed At EXAMINATION:CT ABDOMEN PELVIS W WO CONTRAST RADIANT CLINICAL HISTORY:renal mass TECHNIQUE: CT of the abdomen and pelvis was performed without contrast utilizing renal stone protocol. Subsequently, postcontrast CT of the abdomen and pelvis was obtained with multiphase renal mass and CT urogram protocol. Sagittal and coronal computerized reformatted images were also obtained.All CT images were acquired using low-dose technique with automated exposure control. COMPARISON: None. FINDINGS: Abdomen: 1.5.2 x 3.7 cm hypoenhancing mass involving the mid pole left kidney and with extension to involve the left renal vein. The tumor also extends to involve the renal sinus fat. There is a left-sided extrarenal pelvis. 2.Mild circumferential wall thickening of the distal esophagus may relate to esophagitis. A small hiatal hernia is present. 3.Liver, spleen, adrenal glands and pancreas appear normal. Gallbladder is contracted. 4.The portal vein, SMV, and splenic vein are patent. Abdominal aorta is of normal caliber. There is no retroperitoneal lymphadenopathy. The IVC is patent. 5.There is cortical thinning and scarring associated with the right kidney although discrete mass is not identified. 6.No ascites Pelvis: 1.A pelvic mass or fluid collection is not identified. 2.Diverticulosis of the sigmoid and descending colon with no acute inflammatory changes. 3.The unopacified bladder appears normal. 4.Fat-containing left inguinal hernia. 5.No pelvic lymphadenopathy. 6.Osseous structures are intact. IMPRESSION: 1.Hypoenhancing mass involving the left kidney measuring 5.2 x 3.7 cm concerning for RCC. There is extension of tumor to involve the proximal left renal vein and tumor to extend into the renal sinus fat. No hydronephrosis although there is an left-sided extrarenal pelvis. No retroperitoneal lymphadenopathy. [id number] Procedure Note [facility], Radiology Results Incoming - 07/13/2017 2:49 PM GROUP FITNESS MANAGER EXAMINATION: CT ABDOMEN PELVIS W WO CONTRAST CLINICAL HISTORY: renal mass TECHNIQUE: CT of the abdomen and pelvis was performed without contrast utilizing renal stone protocol. Subsequently, postcontrast CT of the abdomen and pelvis was obtained with multiphase renal mass and CT urogram protocol. Sagittal and coronal computerized reformatted images were also obtained. All CT images were acquired using low-dose technique with automated exposure control. COMPARISON: None. FINDINGS: Abdomen: 1. 5.2 x 3.7 cm hypoenhancing mass involving the mid pole left kidney and with extension to involve the left renal vein. The tumor also extends to involve the renal sinus fat. There is a left-sided extrarenal pelvis. 2. Mild circumferential wall thickening of the distal esophagus may relate to esophagitis. A small hiatal hernia is present. 3. Liver, spleen, adrenal glands and pancreas appear normal. Gallbladder is contracted. 4. The portal vein, SMV, and splenic vein are patent. Abdominal aorta is of normal caliber. There is no retroperitoneal lymphadenopathy. The IVC is patent. 5. There is cortical thinning and scarring associated with the right kidney although discrete mass is not identified. 6. No ascites Pelvis: 1. A pelvic mass or fluid collection is not identified. 2. Diverticulosis of the sigmoid and descending colon with no acute inflammatory changes. 3. The unopacified bladder appears normal. 4. Fat-containing left inguinal hernia. 5. No pelvic lymphadenopathy. 6. Osseous structures are intact. IMPRESSION: 1. Hypoenhancing mass involving the left kidney measuring 5.2 x 3.7 cm concerning for RCC. There is extension of tumor to involve the proximal left renal vein and tumor to extend into the renal sinus fat. No hydronephrosis although there is an left-sided extrarenal pelvis. No retroperitoneal lymphadenopathy. [id number] Performing Organization Address City/[facility]/Zipcode Phone Number [address] [address] Urine eosinophils (07/12/2017 6:13 PM GROUP FITNESS MANAGER) Eosinophils, urine NONE [facility] DEPARTMENT OF PATHOLOGY AND GENOMIC MEDICINE Specimen Urine Performing Organization Address City/[facility] Phone Number [facility] DEPARTMENT OF PATHOLOGY AND [address] [place] [address] Sodium level, urine, random (07/12/2017 6:13 PM GROUP FITNESS MANAGER) Sodium, urine, random 47 mEq/L [facility] DEPARTMENT OF PATHOLOGY AND GENOMIC MEDICINE Specimen Urine Performing Organization Address City/[facility] Phone Number [facility] DEPARTMENT OF PATHOLOGY AND [address] [place] [address] Creatinine level, urine, random (07/12/2017 6:13 PM GROUP FITNESS MANAGER) Creatinine, urine, random 103 mg/dL [facility] DEPARTMENT OF PATHOLOGY AND GENOMIC MEDICINE Specimen Urine Performing Organization Address City/[facility] Phone Number [facility] DEPARTMENT OF PATHOLOGY AND [address] [place] [address] [place] Renal Doppler (07/05/2017 11:30 AM GROUP FITNESS MANAGER) Narrative Performed At EXAMINATION:US RENAL DOPPLER [facility] CLINICAL HISTORY:N18.3 Chronic kidney diseasestage 3 (moderate), I10 Essential (primary) hypertension, N18.3I10 TECHNIQUE: Examination includes a full duplex Doppler scan of the renal vessels (real-time B mode grayscale, Doppler spectral analysis, and Doppler color flow imaging). COMPARISON:None FINDINGS: MRA and MRV bilaterally are patent with normal direction of flow and Doppler waveform. MRA peak systolic velocity and MRA to abdominal aorta systolic ratios are within normal limits bilaterally with no sonographic evidence of main renal artery stenosis. Arcuate artery waveforms demonstrate normal morphology bilaterally. Resistive indices measure 0.66-0.74on the right and 0.68-0.71on the left, within normal limits bilaterally. IMPRESSION: No sonographic evidence of renal artery stenosis. [facility]-[id number] Procedure Note Interface, Radiology Results Incoming - 07/05/2017 1:08 PM GROUP FITNESS MANAGER EXAMINATION: US RENAL DOPPLER CLINICAL HISTORY: N18.3 Chronic kidney disease stage 3 (moderate), I10 Essential (primary) hypertension, N18.3 I10 TECHNIQUE: Examination includes a full duplex Doppler scan of the renal vessels (real-time B mode grayscale, Doppler spectral analysis, and Doppler color flow imaging). COMPARISON: None FINDINGS: MRA and MRV bilaterally are patent with normal direction of flow and Doppler waveform. MRA peak systolic velocity and MRA to abdominal aorta systolic ratios are within normal limits bilaterally with no sonographic evidence of main renal artery stenosis. Arcuate artery waveforms demonstrate normal morphology bilaterally. Resistive indices measure 0.66-0.74 on the right and 0.68-0.71 on the left, within normal limits bilaterally. IMPRESSION: No sonographic evidence of renal artery stenosis. [id number] Performing Organization Address City/State/Zipcode Phone Number [facility] [address] [place] [address] [place] Renal (07/05/2017 11:10 AM GROUP FITNESS MANAGER) Narrative Performed At EXAMINATION:US RENAL [facility] CLINICAL HISTORY:N18.3 Chronic kidney diseasestage 3 (moderate), I10 Essential (primary) hypertension, [id number][MODERATE] ESSENTIALHTN COMPARISON:None TECHNIQUE: Routine renal ultrasound obtained. IMPRESSION: 1.Kidneys measure 10.7 x 5.3 x 4.6 cm in the right and 11.7 x 4.8 x 4.5 cm on the left. Multifocal renal cortical scarring bilaterally, and increased echogenicity bilaterally indicating medical renal disease. 2.Three discrete slightly heterogeneous hyperechoic lesions in the mid to lower left kidney each measuring on the range of 3.5-4.3 cm. There is increased vascularity. These may represent angiomyolipoma, though malignancy is not excluded, and further evaluation by CT abdomen with and without IV contrast per renal mass protocol is advised. 3.No focal lesion on the right. No stones or hydronephrosis on either side. SUMMARY: Left renal lesions, benign versus malignant, see above for details. [id number] Procedure Note [facility], Radiology Results Incoming - 07/05/2017 1:07 PM GROUP FITNESS MANAGER EXAMINATION: US RENAL CLINICAL HISTORY: N18.3 Chronic kidney disease stage 3 (moderate), I10 Essential (primary) hypertension, N18.3 I10 CHRONIC KIDNEY DISEASE STAGE 111 [ MODERATE ] ESSENTIAL HTN COMPARISON: None TECHNIQUE: Routine renal ultrasound obtained. IMPRESSION: 1. Kidneys measure 10.7 x 5.3 x 4.6 cm in the right and 11.7 x 4.8 x 4.5 cm on the left. Multifocal renal cortical scarring bilaterally, and increased echogenicity bilaterally indicating medical renal disease. 2. Three discrete slightly heterogeneous hyperechoic lesions in the mid to lower left kidney each measuring on the range of 3.5-4.3 cm. There is increased vascularity. These may represent angiomyolipoma, though malignancy is not excluded, and further evaluation by CT abdomen with and without IV contrast per renal mass protocol is advised. 3. No focal lesion on the right. No stones or hydronephrosis on either side. SUMMARY: Left renal lesions, benign versus malignant, see above for details. [id number] Performing Organization Address City/State/Zipcode Phone Number [facility] [address] [place] [address] Large Joint Arthrocentesis (06/16/2017 12:10 PM GROUP FITNESS MANAGER) Narrative Performed At Josemanuel Landrum MD 06/16/2017 12:10 PM Large Joint Arthrocentesis Consent given by: patient Site marked: site marked Timeout: Immediately prior to procedure a time out was called to verify the correct patient, procedure, equipment, senior safety support manager and site/side marked as required Supporting Documentation Indications: pain Procedure Details Preparation: Patient was prepped and draped in the usual sterile fashion Ultrasound guided: no Platelet Rich Plasma Used: no PRP Used Location: knee - Bilateral knee Right side: Needle size: 22 G Approach: anteromedial Right knee medications administered: 4 mL hyaluronate sodium, stabilized 88 mg/4 mL Aspirate amount: 0 mL Patient tolerance: patient tolerated the procedure well with no immediate complications Left side: Needle size: 22 G Approach: anteromedial Left knee medications administered: 4 mL hyaluronate sodium, stabilized 88 mg/4 mL Aspirate amount: 0 mL Patient tolerance: patient tolerated the procedure well with no immediate complications after 04/27/2017 Insurance Payer Benefit Plan / Group Subscriber ID Type Phone Address MEDICARE MEDICARE PART A AND B xxxxxxxxxx Medicare [place], [place] COMMERCIAL MISC MISC COMMERCIAL xxxxxxxxxx Commercial [phone] [id number] (Work) Advance Directives Patient has advance care planning documents, and code status on file. For more information, please contact:Mateo Pittman[address] [place] [id number] Code Status Date Activated Date Inactivated Comments Full Code 11/08/2017 10:34 AM 11/17/2017 6:20 PM Code Status decision reached by: Patient Full Code 12/16/2015 4:43 AM 12/26/2015 7:54 PM Code Status decision reached by: Patient
--- NOTE | 2018-04-28 15:06 | RAD REPORT ---
EXAM DESCRIPTION: Shoulder Right 2 View - 04/28/2018 2:46 pm CLINICAL HISTORY: Persistent right shoulder pain COMPARISON: None. TECHNIQUE: Internal and external rotation views of the right shoulder were obtained. FINDINGS: There is no fracture or dislocation. AC joint degenerative changes are present with super iorly directed spurring. No spurring into the subacromion space. No abnormal soft tissue calcificatio ns. No acute or suspicious findings. IMPRESSION: No fracture or dislocation. AC joint degenerative change.
[2018-04-28] MEDS ORDERED: TRAMADOL HCL 50 MG TAB ONE (15:14)
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
--- NOTE | 2018-04-28 15:19 | ER ---
Nurse's Notes [facility] Name: Lolly De La Rosa Age: 77 yrs Sex: Female : 1940 Arrival Date: 04/28/2018 Time: 13:33 Bed 30 Private MD: Corby Vazquez Diagnosis: Pain in right shoulder Presentation: 04/28 13:44 Presenting complaint: Patient states: right shoulder pain since 04/21/18. Transition of sv care: patient was not received from another setting of care. Onset of symptoms was April 21, 2018. Care prior to arrival: None. 13:44 Method Of Arrival: Ambulatory sv 13:44 Acuity: MILE 4 sv 15:18 Risk Assessment: Do you want to hurt yourself or someone else? Patient reports no mg2 desire to harm self or others. Initial Sepsis Screen: Does the patient meet any 2 criteria? No. Patient's initial sepsis screen is negative. Does the patient have a suspected source of infection? No. Patient's initial sepsis screen is negative. Triage Assessment: 13:47 General: Appears in no apparent distress. uncomfortable, Behavior is calm, cooperative, sv appropriate for age. Pain: Complains of pain in right shoulder. Neuro: Level of Consciousness is awake, alert, obeys commands, Oriented to person, place, time, situation, Moves all extremities. Respiratory: Respiratory effort is even, unlabored, Respiratory pattern is regular, symmetrical. Historical: - Allergies: 13:45 Codeine; sv - PMHx: 13:45 CHF; Diabetes - NIDDM; Hypertension; Hypothyroidism; seasonal allergies; sv - Immunization history:: Pneumococcal vaccine is up to date, Flu vaccine is not up to date. - Social history:: Smoking status: Patient/guardian denies using tobacco. - Ebola Screening: : No symptoms or risks identified at this time. Screenin:15 Abuse screen: Denies threats or abuse. Denies injuries from another. Nutritional mg2 screening: No deficits noted. Tuberculosis screening: No symptoms or risk factors identified. Fall Risk None identified. Assessment: 15:15 General: Appears in no apparent distress. uncomfortable, Behavior is calm, cooperative. mg2 Pain: Complains of pain in right shoulder Pain does not radiate. Pain currently is 5 out of 10 on a pain scale. Quality of pain is described as aching, Pain began gradually, 1 week ago. Neuro: Level of Consciousness is awake, alert, obeys commands, Oriented to person, place, time, situation. Cardiovascular: Capillary refill < 3 seconds Patient's skin is warm and dry. Respiratory: Airway is patent Respiratory effort is even, unlabored, Respiratory pattern is regular, symmetrical. GI: No signs and/or symptoms were reported involving the gastrointestinal system. : No signs and/or symptoms were reported regarding the genitourinary system. EENT: No signs and/or symptoms were reported regarding the EENT system. Derm: Skin is intact, is healthy with good turgor, Skin is pink, warm \T\ dry. normal. Musculoskeletal: Reports pain in right shoulder. Vital Signs: 13:45 BP 138 / 63; Pulse 59; Resp 16; Temp 98.3; Pulse Ox 99% ; Weight 72.57 kg; Height 5 ft. sv 5 in. (165.10 cm); 15:43 BP 154 / 59; Pulse 60; Resp 8; Pulse Ox 100% on R/A; Pain 0/10; mg2 13:45 Body Mass Index 26.62 (72.57 kg, 165.10 cm) sv ED Course: 13:33 Patient arrived in ED. sb2 13:33 Corby Vazquez MD is Private Physician. sb2 13:44 Triage completed. sv 13:47 Arm band placed on. sv 14:46 Shoulder Right (2 View) XRAY In Process Unspecified. EDMS 14:55 Melecio Serrano NP is PHCP. pm1 14:55 Jordan Galeano MD is Attending Physician. pm1 14:56 Daryl Cervantes RN is Primary Nurse. mg2 15:18 Patient has correct armband on for positive identification. mg2 15:18 No provider procedures requiring assistance completed. Patient did not have IV access mg2 during this emergency room visit. 15:30 Sling applied to right arm. mg2 Administered Medications: 15:15 Drug: traMADol 50 mg Route: PO; mg2 15:45 Follow up: Response: No adverse reaction; Pain is decreased mg2 Outcome: 15:19 Discharge ordered by . pm1 15:57 Discharged to home ambulatory. mg2 15:57 Condition: good 15:57 Discharge instructions given to patient, Instructed on discharge instructions, follow up and referral plans. Demonstrated understanding of instructions, follow-up care, medications, Prescriptions given X 1. 15:58 Patient left the ED. mg2 Signatures: Dispatcher [employer] Shannen Fink, REAL RN sv Melecio Serrano, CIRCUITS ENGINEER CIRCUITS ENGINEER pm1 Nimco Boateng sb2 Daryl Cervantes RN RN mg2 Corrections: (The following items were deleted from the chart) 13:51 13:45 BP 157 / 137; Pulse 59bpm; Resp 16bpm; Pulse Ox 99%; Temp 98.3F; 72.57 kg; Height sv 5 ft. 5 in.; BMI: 26.6; sv
== END 2018-04-28 15:58 | disposition home or self-care (01) ==
LOC: ER 13:30
DX: M25.511 Pain in right shoulder (principal); V49.9XXA Car occupant (driver) (passenger) injured in unspecified traffic accident, initial encounter; Z88.5 Allergy status to narcotic agent; I10 Essential (primary) hypertension
CPT/HCPCS: 99284

== ENCOUNTER 2018-04-30 19:07 | Inpatient (IN) | payer OTHER ==
--- OUTSIDE RECORDS SUMMARY | 2018-04-30 19:11 | XMS REPORT | Clinical Summary ---
:1940 Author Organization [facility] Address [address] [place] [address] Care Team Providers Name Role Phone Gage [...] Procedural Mikey Strong cardioversion Basilio Tinajero MD [[id number] (CPT)] 11/07/2017 - Hospital Encounter Cardiology Federico [...] 08/02/2017 Anesthesia Event Urology Mary Beth Garcia, PIT FURNACE MELTER 08/02/2017 Surgery Urology Wayne Reeves LAPAROSCOPIC LEFT MD Julia RADICAL NEPHRECTOMY 08/02/2017 - Hospital Encounter General Internal Wayne Reeves Renal cancer, 08/05/2017 Eugene Dumont MD unspecified laterality 08/01/2017 Pre-Admit Testing Pre-Admission Wayne Reeves Preop examination (Primary Dx); Appointment Testing MD Julia Chronic atrial fibrillation; Essential hypertension; Type 2 diabetes mellitus with complication, unspecified halfway insulin use status; Anticoagulant long-term use 07/25/2017 [...] Dx); Wayne Plascencia MD Essential hypertension after 04/29/2017 Immunizations Name Dates Previously Given Next Due [...] PNEUMOCOCCAL-13 Completed 07/12/2017 Implants Implanted Type Area Picture Booker Device Shelf Model / Identifier Expiration Serial / Date Lot Matrix Tiss Strattice [id number] Recnstrctv Prcne Acell Firm - [id number] Human Tissue N/A: N/A LIFE[employer] 01/13/2019 [id number] / Implanted: Qty: 1 on 09/10/2017 by Vishnu Bowens MD Implants [employer] / [id number] Drain Wnd Chnl 19fr 1/4in Rnd Hbls Fl-Flut W/ 1/4in Trocar - [id number] Surgical Left: ETHICON DIV OF 02/12/2021 [id number] / Implanted: Qty: 1 on 09/10/2017 by Vishnu Bowens MD Implants; N/A CASSY & / Expanders; CASSY Extenders; Surgical Wires Drain Wnd 1/8in 49in Rnd End Perfrtn W/ Trocar 10in Hol Ptrn - [id number] Surgical N/A: N/A [employer] 08/13/2022 [id number] / Implanted: 11/14/2017 (Quantity not on file) Implants; DIVISION / Expanders; [id number] Extenders; Surgical Wires Procedures Procedure Name Priority Date/Time Associated Diagnosis Comments XR KNEE 4+ VW Routine 12/21/2017 11:38 Primary Results for this BILATERAL AM CDT osteoarthritis of procedure are in left knee the results Primary section. osteoarthritis of right knee WV ARTHROCENTESIS Routine 12/21/2017 11:00 Primary Results for [...] CDT procedure are in the results section. WV AN ELECTIVE Routine 11/14/2017 3:59 ENDOTRACHEAL AIRWAY [...] CDT procedure are in the results section. WV AN ELECTIVE Routine 09/10/2017 8:55 AM ENDOTRACHEAL AIRWAY CDT Procedure Note - Henok Rich CRNA - 09/10/2017 8:55 AM CDT Airway Date/Time: 09/10/2017 8:28 AM Performed by: HENOK RICH Authorized by: FEDERICO GIANG Location: OR Urgency: Elective Difficult Airway: No Resident/MEDICAL RESEARCH ASSISTANT/AA: HENOK RICH Performed by: resident/MEDICAL RESEARCH ASSISTANT/AA Preoxygenated with 100% O2: Yes C-spine Precautions [...] PM CDT Procedure Note - Alex Chapman, MEDICAL RESEARCH ASSISTANT - 08/02/2017 1:29 PM CDT Arterial line [...] Type 2 diabetes mellitus with complication, unspecified chief cruiser insulin use status PREPARE RBC Routine 08/01/2017 [...] mellitus with the results complication, section. unspecified chief cruiser insulin use status PARTIAL THROMBOPLASTIN Routine 08/01/2017 [...] mellitus with the results complication, section. unspecified chief cruiser insulin use status GRAM STAIN Routine 08/01/2017 1:14 Results for this PM CDT procedure are in the results section. URINE CULTURE Routine 08/01/2017 1:14 Results for this PM CDT procedure are in the results section. POC GLUCOSE Routine 07/14/2017 4:25 Results for this PM COMMUTATOR UNDERCUTTER procedure are in the results section. CT CHEST WO CONTRAST STAT 07/14/2017 1:04 Results for this PM COMMUTATOR UNDERCUTTER procedure are in the results section. CT HEAD WO CONTRAST STAT 07/14/2017 1:04 Results for this PM COMMUTATOR UNDERCUTTER procedure are in the results section. ANTI XA, Routine 07/14/2017 12:06 Results for this UNFRACTIONATED PM COMMUTATOR UNDERCUTTER procedure are in the results section. POC GLUCOSE Routine 07/14/2017 12:05 Results for this PM COMMUTATOR UNDERCUTTER procedure are in the results section. POC GLUCOSE Routine 07/14/2017 8:21 Results for this AM COMMUTATOR UNDERCUTTER procedure are in the results section. PROTHROMBIN TIME WITH Routine 07/14/2017 5:25 Results for this INR AM COMMUTATOR UNDERCUTTER procedure are in the results section. ANTI XA, Routine 07/14/2017 5:25 Results for this UNFRACTIONATED AM COMMUTATOR UNDERCUTTER procedure are in the results section. ZZESTIMATED GFR Routine 07/14/2017 4:00 Results for this AM COMMUTATOR UNDERCUTTER procedure are in the results section. BASIC METABOLIC PANEL Routine 07/14/2017 4:00 Results for this AM COMMUTATOR UNDERCUTTER procedure are in the results section. MAGNESIUM LEVEL Routine 07/14/2017 4:00 Results for this AM COMMUTATOR UNDERCUTTER procedure are in the results section. POC GLUCOSE Routine 07/13/2017 8:43 Results for this PM COMMUTATOR UNDERCUTTER procedure are in the results section. POC GLUCOSE Routine 07/13/2017 4:05 Results for this PM COMMUTATOR UNDERCUTTER procedure are in the results section. CT ABDOMEN PELVIS W WO Routine 07/13/2017 1:50 Results for this CONTRAST PM COMMUTATOR UNDERCUTTER procedure are in the results section. POC GLUCOSE Routine 07/13/2017 12:30 Results for this PM COMMUTATOR UNDERCUTTER procedure are in the results section. POC GLUCOSE Routine 07/13/2017 8:04 Results for this AM COMMUTATOR UNDERCUTTER procedure are in the results section. B NATRIURETIC PEPTIDE Routine 07/13/2017 5:30 Results for this AM COMMUTATOR UNDERCUTTER procedure are in the results section. HEMOGLOBIN A1C Routine 07/13/2017 5:30 Results for this AM COMMUTATOR UNDERCUTTER procedure are in the results section. PROTHROMBIN TIME WITH Routine 07/13/2017 5:30 Results for this INR AM COMMUTATOR UNDERCUTTER procedure are in the results section. CBC WITH PLATELET AND Routine 07/13/2017 5:30 Results for this DIFFERENTIAL AM COMMUTATOR UNDERCUTTER procedure are in the results section. ZZESTIMATED GFR Routine 07/13/2017 4:00 Results for this AM COMMUTATOR UNDERCUTTER procedure are in the results section. PHOSPHORUS LEVEL Routine 07/13/2017 4:00 Results for this AM COMMUTATOR UNDERCUTTER procedure are in the results section. T4, FREE Routine 07/13/2017 4:00 Results for this AM COMMUTATOR UNDERCUTTER procedure are in the results section. THYROID STIMULATING Routine 07/13/2017 4:00 Results for this HORMONE AM COMMUTATOR UNDERCUTTER procedure are in the results section. MAGNESIUM LEVEL Routine 07/13/2017 4:00 Results for this AM COMMUTATOR UNDERCUTTER procedure are in the results section. BASIC METABOLIC PANEL Routine 07/13/2017 4:00 Results for this AM COMMUTATOR UNDERCUTTER procedure are in the results section. POC GLUCOSE Routine 07/13/2017 3:59 Results for this AM COMMUTATOR UNDERCUTTER procedure are in the results section. POC GLUCOSE Routine 07/12/2017 11:36 Results for this PM COMMUTATOR UNDERCUTTER procedure are in the results section. POC GLUCOSE Routine 07/12/2017 9:13 Results for this PM COMMUTATOR UNDERCUTTER procedure are in the results section. URINE EOSINOPHILS Routine 07/12/2017 6:13 Results for this PM COMMUTATOR UNDERCUTTER procedure are in the results section. CREATININE LEVEL, Routine 07/12/2017 6:13 Results for this URINE, RANDOM PM COMMUTATOR UNDERCUTTER procedure are in the results section. SODIUM LEVEL, URINE, Routine 07/12/2017 6:13 Results for this RANDOM PM COMMUTATOR UNDERCUTTER procedure are in the results section. ECG 12-LEAD Routine 07/12/2017 5:24 Results for this PM COMMUTATOR UNDERCUTTER procedure are in the results section. POC GLUCOSE Routine 07/12/2017 5:16 Results for this PM COMMUTATOR UNDERCUTTER procedure are in the results section. ZZESTIMATED GFR Routine 07/12/2017 2:02 Results for this PM COMMUTATOR UNDERCUTTER procedure are in the results section. PROTHROMBIN TIME WITH Routine 07/12/2017 2:02 Results for this INR PM COMMUTATOR UNDERCUTTER procedure are in the results section. MAGNESIUM LEVEL Routine 07/12/2017 2:02 Results for this PM COMMUTATOR UNDERCUTTER procedure are in the results section. HC COMPLETE BLD COUNT Routine 07/12/2017 2:02 Results for this W/AUTO DIFF PM COMMUTATOR UNDERCUTTER procedure are in the results section. BASIC METABOLIC PANEL Routine 07/12/2017 2:02 Results for this PM COMMUTATOR UNDERCUTTER procedure are in the results section. B NATRIURETIC PEPTIDE Routine 07/12/2017 2:02 Results for this PM COMMUTATOR UNDERCUTTER procedure are in the results section. POC GLUCOSE Routine 07/12/2017 1:26 Results for this PM COMMUTATOR UNDERCUTTER procedure are in the results section. US RENAL DOPPLER Routine 07/05/2017 11:30 Chronic kidney Results for this AM COMMUTATOR UNDERCUTTER disease, stage III procedure are in (moderate) the results Essential section. hypertension US RENAL Routine 07/05/2017 11:10 Chronic kidney Results for this AM COMMUTATOR UNDERCUTTER disease, stage III procedure are in (moderate) the results Essential section. hypertension WV ARTHROCENTESIS Routine 06/16/2017 12:10 Primary Results for this ASPIR&/INJ MAJOR PM COMMUTATOR UNDERCUTTER osteoarthritis of procedure are in JT/BURSA W/O US left knee the results Primary section. osteoarthritis of right knee after 04/29/2017 Results XR Knee 4+ Vw Bilateral (12/21/2017 [...] lateral tibial plateau osteophytes. Performing Organization Address [facility] Phone Number [facility] [address] [place] [address] Large Joint Arthrocentesis (12/21/2017 11:00 AM CDT) Narrative Performed At Josemanuel Landrum MD 12/21/2017 12:00 PM Large Joint Arthrocentesis Consent given by: patient Site marked: site marked Timeout: Immediately prior to procedure a time out was called to verify the correct patient, procedure, equipment, manager product support and site/side marked as required Supporting Documentation [...] glucose 311 (H) 65 - 99 mg/dL [facility] DEPARTMENT OF PATHOLOGY AND Comment: GENOMIC MEDICINE [facility] Notified RN Meter ID: [id number] Deputy Probation Officer: Robert Brown Performing Organization Address City/[facility] Phone Number [facility] DEPARTMENT OF PATHOLOGY AND [address] [place] [address] [facility] MEDICINE Estimated GFR (11/17/2017 5:30 AM CDT)Only the most recent of25 resultswithin the time period is included. GFR Non Af Amer 20 (A) mL/min/1.73 m2 [facility] DEPARTMENT OF PATHOLOGY AND GENOMIC MEDICINE GFR Af Amer 24 (A) mL/min/1.73 m2 [facility] DEPARTMENT OF Comment: PATHOLOGY AND GENOMIC Chronic [...] Americans. Specimen Plasma specimen Performing Organization Address City/[facility] Phone Number [facility] DEPARTMENT OF PATHOLOGY AND [address] [place] [address] Prothrombin time with INR (11/17/2017 5:30 AM CDT)Only the most recent of23 resultswithin the time period is included. Prothrombin time 18.2 (H) 12.0 - 15.0 sec [facility] DEPARTMENT OF PATHOLOGY AND [facility] MEDICINE INR 1.5 [facility] DEPARTMENT OF Comment: PATHOLOGY AND [facility] The International Normalized Ratio (INR) is a therapeutic MEDICINE monitoring tool for patients who are stable on oral anticoagulant therapy. An INR of 2.0-3.0 is suggested for deep vein thrombosis/pulmonary embolism. Specimen Blood Performing Organization Address City/[facility] Phone Number [facility] DEPARTMENT OF PATHOLOGY AND [address] [place] [address] [facility] CBC with platelet and differential (11/17/2017 5:30 AM CDT)Only the most recent of20 resultswithin the time period is included. WBC 9.63 4.50 - 11.00 k/uL [facility] DEPARTMENT OF PATHOLOGY AND GENOMIC MEDICINE RBC 3.98 (L) 4.20 - 5.50 m/uL [facility] DEPARTMENT OF PATHOLOGY AND GENOMIC MEDICINE HGB 11.5 (L) 12.0 - 16.0 g/dL [facility] DEPARTMENT OF PATHOLOGY AND GENOMIC MEDICINE HCT 35.4 (L) 37.0 - 47.0 % [facility] DEPARTMENT OF PATHOLOGY AND GENOMIC MEDICINE MCV 88.9 82.0 - 100.0 fL [facility] DEPARTMENT OF PATHOLOGY AND GENOMIC MEDICINE MCH 28.9 27.0 - 34.0 pg [facility] DEPARTMENT OF PATHOLOGY AND GENOMIC MEDICINE MCHC 32.5 31.0 - 37.0 g/dL [facility] DEPARTMENT OF PATHOLOGY AND GENOMIC MEDICINE RDW - SD 43.2 37.0 - 55.0 fL [facility] DEPARTMENT OF PATHOLOGY AND GENOMIC MEDICINE MPV 11.0 8.8 - 13.2 fL [facility] DEPARTMENT OF PATHOLOGY AND GENOMIC MEDICINE Platelet count 242 150 - 400 k/uL [facility] DEPARTMENT OF PATHOLOGY AND GENOMIC MEDICINE Nucleated RBC 0.00 /100 WBC [facility] DEPARTMENT OF PATHOLOGY AND GENOMIC MEDICINE Neutrophils 55.9 39.0 - 69.0 % [facility] DEPARTMENT OF PATHOLOGY AND GENOMIC MEDICINE Lymphocytes 29.4 25.0 - 45.0 % [facility] DEPARTMENT OF PATHOLOGY AND GENOMIC MEDICINE Monocytes 9.3 0.0 - 10.0 % [facility] DEPARTMENT OF PATHOLOGY AND GENOMIC MEDICINE Eosinophils 4.5 0.0 - 5.0 % [facility] DEPARTMENT OF PATHOLOGY AND GENOMIC MEDICINE Basophils 0.6 0.0 - 1.0 % [facility] DEPARTMENT OF PATHOLOGY AND GENOMIC MEDICINE Immature granulocytes 0.3Comment: 0.0 - 1.0 % [facility] DEPARTMENT OF "Immature PATHOLOGY AND GENOMIC granulocytes" MEDICINE (promyelocytes, myelocytes, metamyelocytes) Specimen Blood Performing Organization Address City/State/Zipcode Phone Number [facility] DEPARTMENT OF PATHOLOGY AND [address] [place] [address] GENOMIC MEDICINE Basic metabolic panel (11/17/2017 5:30 AM CDT)Only the most recent of23 resultswithin the time period is included. Sodium 138 135 - 148 mEq/L [facility] DEPARTMENT OF PATHOLOGY AND GENOMIC MEDICINE Potassium 3.9 3.5 - 5.0 mEq/L [facility] DEPARTMENT OF PATHOLOGY AND GENOMIC MEDICINE Chloride 99 98 - 112 mEq/L [facility] DEPARTMENT OF PATHOLOGY AND GENOMIC MEDICINE CO2 26 24 - 31 mEq/L [facility] DEPARTMENT OF PATHOLOGY AND GENOMIC MEDICINE Anion gap 13@ANIO 7 - 15 mEq/L [facility] DEPARTMENT OF PATHOLOGY AND GENOMIC MEDICINE BUN 33 (H) 8 - 23 mg/dL [facility] DEPARTMENT OF PATHOLOGY AND GENOMIC MEDICINE Creatinine 2.4 (H) 0.5 - 0.9 mg/dL [facility] DEPARTMENT OF PATHOLOGY AND GENOMIC MEDICINE Glucose 142 (H) 65 - 99 mg/dL [facility] DEPARTMENT OF PATHOLOGY AND GENOMIC MEDICINE Calcium 8.8 8.8 - 10.2 mg/dL [facility] DEPARTMENT OF PATHOLOGY AND GENOMIC MEDICINE Specimen Plasma specimen Performing Organization Address [facility] [place] Phone Number [facility] DEPARTMENT OF PATHOLOGY AND [address] [place] [address] Magnesium level (11/16/2017 4:00 AM CDT)Only the most recent of17 resultswithin the time period is included. Magnesium 1.9 1.6 - 2.4 mg/dL [facility] DEPARTMENT OF PATHOLOGY AND GENOMIC MEDICINE Specimen Plasma specimen Performing Organization Address [facility] Phone Number [facility] DEPARTMENT OF PATHOLOGY AND [address] [place] [address] Surgical pathology request (11/14/2017 5:04 PM CDT)Only the most recent of3 resultswithin the time period is included. [facility] DEPARTMENT OF PATHOLOGY AND GENOMIC MEDICINE Surgical pathology report See link below for PDF [facility] DEPARTMENT OF Lab Report PATHOLOGY AND GENOMIC MEDICINE Result status This is Final Report to [facility] DEPARTMENT OF [id number] PATHOLOGY AND GENOMIC MEDICINE Performing Organization Address [facility] [place] Phone Number [facility] DEPARTMENT OF PATHOLOGY AND [address] [place] [address] Anti Xa, unfractionated (11/14/2017 5:40 AM CDT)Only the most recent of11 resultswithin the time period is included. Anti Xa, unfractionated <0.10 (L)Comment: 0.30 - 0.70 U/mL [facility] DEPARTMENT OF Therapeutic Range: PATHOLOGY AND GENOMIC 0.30 - 0.70 U/mL MEDICINE Specimen Blood Performing Organization Address [facility] [place] Phone Number [facility] DEPARTMENT OF PATHOLOGY AND [address] [place] [address] CT Abdomen Pelvis Wo Contrast (11/09/2017 5:59 [...] 3. Please see above for full details. [id number] Procedure Note Hm Interface, Radiology Results Incoming [...] 3. Please see above for full details. [id number] Performing Organization Address City/State/Zipcode Phone Number [facility] [address] [place] [address] US Thyroid Biopsy (11/09/2017 12:38 PM CDT) Narrative Performed At [facility] Procedure: US THYROID BIOPSY Preprocedure Diagnosis: left [...] local anesthesia. Under real-time ultrasound guidance, 8 [id number] fine-needle aspiration specimens were obtained from a [...] Impression: Uncomplicated ultrasound guided thyroid nodule biopsy. [facility]-[id number] Procedure Note Interface, Radiology Results Incoming - [...] Impression: Uncomplicated ultrasound guided thyroid nodule biopsy. [facility]-[id number] Performing Organization Address City/State/Zipcode Phone Number [facility] [address] [place] [address] Cytology (non-gynecological) request (11/09/2017 12:06 PM CDT) [facility] DEPARTMENT OF PATHOLOGY AND GENOMIC MEDICINE Cytology See link below for PDF [facility] DEPARTMENT OF (non-gynecological) report Lab Report PATHOLOGY AND GENOMIC MEDICINE Result status This is Final Report to [facility] DEPARTMENT OF [id number] PATHOLOGY AND GENOMIC MEDICINE Performing Organization Address [facility] Phone Number [facility] DEPARTMENT OF PATHOLOGY AND [address] [place] [address] GENOMIC MEDICINE ECG 12 lead (11/08/2017 10:33 AM CDT)Only the most recent of4 resultswithin the time period is included. Ventricular rate 61 [facility] MUSE Atrial rate 61 [facility] MUSE W[place] interval 282 [facility] MUSE QRSD interval 112 [facility] MUSE QT interval 476 [facility] MUSE QTC interval 479 [facility] MUSE P axis 1 75 [facility] MUSE QRS axis 1 12 [facility] MUSE T wave axis 17 [facility] MUSE EKG impression Sinus rhythm with 1st degree AV block-Otherwise normal ECG-In automated comparison with ECG of 13-SEP-2017 07:32,-Sinus rhythm has replaced Atrial fibrillation-T wave inversion less evident in Inferior leads-Nonspecific T wave abnormality no longer [facility] MUSE evident in Lateral leads- Performing Organization Address [facility] [place] Phone Number [facility] MUSE [address] [place] [address] Cv electrophysiology procedure (11/08/2017 10:29 AM CDT) Narrative Performed At Electrical cardioversion performed for persistent atrial fibrillation: [facility] successful,mac anesthesia present attempt medical cardioversion unsuccesful preprocedure cv medication inclusive of anticoagulation continued post procedure Performing Organization Address [facility] Phone Number [facility] [address] [place] [address] Partial thromboplastin time, activated (11/07/2017 10:33 PM CDT)Only the most recent of3 resultswithin the time period is included. PTT 29.8 23.0 - 36.0 sec [facility] DEPARTMENT OF PATHOLOGY Comment: AND GENOMIC MEDICINE PTT therapeutic range for unfractionated heparin is 61.0-112.0 seconds which corresponds to Anti-Xa 0.3-0.7 U/ml. Specimen Blood Performing Organization Address City/State/[facility] Phone Number [facility] DEPARTMENT OF PATHOLOGY AND [address] [place] [id number] [place] [address] Phosphorus level (11/07/2017 4:00 PM CDT)Only the most recent of5 resultswithin the time period is included. Phosphorus 2.8 2.4 - 4.5 mg/dL [facility] DEPARTMENT OF PATHOLOGY AND GENOMIC MEDICINE Specimen Plasma specimen Performing Organization Address [facility] Phone Number [facility] DEPARTMENT OF PATHOLOGY AND [address] [place] [address] B natriuretic peptide (11/07/2017 4:00 PM CDT)Only the most recent of9 resultswithin the time period is included. BNP 170 (H) 0 - 100 pg/mL [facility] DEPARTMENT OF PATHOLOGY AND [facility] Specimen Blood Performing Organization Address [facility] Phone Number [facility] DEPARTMENT OF PATHOLOGY AND [address] [place] [address] Hemoglobin A1c (11/07/2017 4:00 PM CDT)Only the most recent of3 resultswithin the time period is included. Hemoglobin A1C 8.0 (H) 4.0 - 5.6 % [facility] DEPARTMENT OF PATHOLOGY Comment: AND [facility] HbA1c cutoffs for diagnosing diabetes: 4.0% - 5.6%=normal 5.7% - 6.4%=increased risk for diabetes (prediabetes) >=6.5%=diabetes Goals for glycemic control (ADA 2016) < 7.0%Target for non adults with diabetes. More or less stringent targets may be appropriate for individual patients. <7.5% Target for Children and adolescents with type 1 diabetes. Specimen Blood Performing Organization Address [facility] Phone Number [facility] DEPARTMENT OF PATHOLOGY AND [address] [place], [place] [id number] [facility] Creatine kinase, total (CPK) (11/07/2017 4:00 PM CDT) Creatine kinase 31 26 - 192 U/L [facility] DEPARTMENT OF PATHOLOGY AND GENOMIC MEDICINE Specimen Plasma specimen Performing Organization Address [facility] Phone Number [facility] DEPARTMENT OF PATHOLOGY AND [address] [place] [phone] [place] [address] XR Abdomen 1 Vw Portable (09/14/2017 12:01 [...] acute disease. No acute osseous abnormality identified. [facility]-[id number] Procedure Note Interface, Radiology Results Incoming - [...] acute disease. No acute osseous abnormality identified. [facility]-[id number] Performing Organization Address City/State/Zipcode Phone Number [facility] [address] [place] [address] [place] Thyroid (09/11/2017 12:57 PM CDT) Narrative [...] *Echogenicity: Very hypoechoic - 3 pts *Shape: [id number]-[id number] - 0 pts *Margin: Lobulated or irregular [...] echogenicity cannot be determined SHAPE (choose 1): *Krnkls-zocx-ackr: Should be assessed on a transverse image [...] participate in the care of your patient. [facility]-[id number] Procedure Note [facility], Radiology Results Incoming - 09/11/2017 1:15 PM [...] Very hypoechoic - 3 pts * Shape: Mjvei-gtmi-btor - 0 pts * Margin: Lobulated or [...] cannot be determined SHAPE (choose 1): * Yuuyhw-sxtc-zcnq: Should be assessed on a transverse image [...] participate in the care of your patient. [facility]-[id number] Performing Organization Address City/[facility]/Zipcode Phone Number [facility] [address] [place] [address] Thyroid stimulating hormone (09/11/2017 4:25 AM CDT)Only the most recent of3 resultswithin the time period is included. TSH 1.35 0.27 - 4.20 uIU/mL [facility] DEPARTMENT OF PATHOLOGY AND GENOMIC MEDICINE Specimen Plasma specimen Performing Organization Address City/[facility]ode Phone Number [facility] DEPARTMENT PATHOLOGY AND [address] [place] [address] [facility] T4, free (09/11/2017 4:25 AM CDT)Only the most recent of3 resultswithin the time period is included. T4, free 1.1 0.9 - 1.7 ng/dL [facility] DEPARTMENT OF PATHOLOGY AND GENOMIC MEDICINE Specimen Plasma specimen Performing Organization Address [facility] Phone Number [facility] DEPARTMENT PATHOLOGY AND [address] [place] [phone] [facility] Comprehensive metabolic panel (09/11/2017 4:25 AM CDT)Only the most recent of2 resultswithin the time period is included. Sodium 141 135 - 148 mEq/L [facility] DEPARTMENT OF PATHOLOGY AND GENOMIC MEDICINE Potassium 4.9 3.5 - 5.0 mEq/L [facility] DEPARTMENT OF PATHOLOGY AND GENOMIC MEDICINE Chloride 106 98 - 112 mEq/L [facility] DEPARTMENT OF PATHOLOGY AND GENOMIC MEDICINE CO2 21 (L) 24 - 31 mEq/L [facility] DEPARTMENT OF PATHOLOGY AND GENOMIC MEDICINE Anion gap 14 7 - 15 mEq/L [facility] DEPARTMENT OF Comment: PATHOLOGY AND GENOMIC Starting from August , anion gap calculation MEDICINE no longer incorporates potassium. Please note the change. BUN 20 8 - 23 mg/dL [facility] DEPARTMENT OF PATHOLOGY AND GENOMIC MEDICINE Creatinine 2.1 (H) 0.5 - 0.9 mg/dL [facility] DEPARTMENT OF PATHOLOGY AND GENOMIC MEDICINE Glucose 186 (H) 65 - 99 mg/dL [facility] DEPARTMENT OF PATHOLOGY AND GENOMIC MEDICINE Calcium 8.5 (L) 8.8 - 10.2 mg/dL [facility] DEPARTMENT OF PATHOLOGY AND GENOMIC MEDICINE Protein 5.5 (L) 6.3 - 8.3 g/dL [facility] DEPARTMENT OF Comment: PATHOLOGY AND GENOMIC 4.6-7.0 g/dL MEDICINE 1 week 4.4-7.6 g/dL 7 months-1year5.1-7.3 g/dL 1-2 years5.6-7.5 g/dL >3 years6.0-8.0 g/dL 18-150 6.3-8.3 g/dL Albumin 2.7 (L) 3.5 - 5.0 g/dL [facility] DEPARTMENT OF PATHOLOGY AND GENOMIC MEDICINE A/G ratio 1.0 0.7 - 3.8 [facility] DEPARTMENT OF PATHOLOGY AND GENOMIC MEDICINE Alkaline phosphatase 65 35 - 104 U/L [facility] DEPARTMENT OF PATHOLOGY AND GENOMIC MEDICINE AST 21 10 - 35 U/L [facility] DEPARTMENT OF PATHOLOGY AND GENOMIC MEDICINE ALT 16 5 - 50 U/L [facility] DEPARTMENT OF PATHOLOGY AND GENOMIC MEDICINE Total bilirubin 0.4 0.0 - 1.2 mg/dL [facility] DEPARTMENT OF PATHOLOGY AND GENOMIC MEDICINE Specimen Plasma specimen Performing Organization Address City/State/Zipcode Phone Number [facility] DEPARTMENT OF PATHOLOGY [address] [address] GENOMIC MEDICINE Lipid panel (09/10/2017 4:00 AM CDT) Cholesterol 108 <200 mg/dL [facility] DEPARTMENT OF PATHOLOGY AND GENOMIC MEDICINE Triglycerides 82 <150 mg/dL [facility] DEPARTMENT OF PATHOLOGY AND GENOMIC MEDICINE HDL cholesterol 46 >40 mg/dL [facility] DEPARTMENT OF PATHOLOGY AND GENOMIC MEDICINE LDL cholesterol 55Comment: Result <100 mg/dL [facility] DEPARTMENT obtained by direct LDL PATHOLOGY AND GENOMIC measurement MEDICINE Lipid panel interpretation SeeBelow [facility] DEPARTMENT OF Comment: PATHOLOGY AND GENOMIC Total Cholesterol (mg/dL) MEDICINE <200 Desirable 333-667Lopwukvwhk-fyvp >=240High Triglycerides (mg/dL) <150 Normal [phone]-rhxj 200-499High >=500Very high HDL Cholesterol (mg/dL) <40Low (male) <40Low (female) LDL Cholesterol (mg/dL) <100 Optimal 100-129Near or above optimal 292-195Jycurbwsmw-gktr 160-189High >=190Very high Risk Catergories that modify [...] specimen Performing Organization Address City/State/Zipcode Phone Number [facility] DEPARTMENT OF PATHOLOGY AND [address] [place] [address] GENOMIC MEDICINE Urinalysis screen and microscopy, with reflex to culture (09/09/2017 5:45 AM CDT)Only the most recent of2 resultswithin the time period is included. Specimen site Clean catch [facility] DEPARTMENT OF PATHOLOGY AND GENOMIC MEDICINE Color, UA Straw [facility] DEPARTMENT OF PATHOLOGY AND GENOMIC MEDICINE Appearance, UA Clear [facility] DEPARTMENT OF PATHOLOGY AND GENOMIC MEDICINE Specific gravity, UA 1.013 1.001 - 1.035 [facility] DEPARTMENT OF PATHOLOGY AND GENOMIC MEDICINE pH, UA 7.0 5.0 - 8.5 [facility] DEPARTMENT OF PATHOLOGY AND GENOMIC MEDICINE Protein, UA 1+ (A) Negative [facility] DEPARTMENT OF PATHOLOGY AND GENOMIC MEDICINE Glucose, UA 1+ (A) Negative [facility] DEPARTMENT OF PATHOLOGY AND GENOMIC MEDICINE Ketones, UA Negative Negative [facility] DEPARTMENT OF PATHOLOGY AND GENOMIC MEDICINE Bilirubin, UA Negative Negative [facility] DEPARTMENT OF PATHOLOGY AND GENOMIC MEDICINE Blood, UA Negative Negative [facility] DEPARTMENT OF PATHOLOGY AND GENOMIC MEDICINE Nitrite, UA Negative Negative [facility] DEPARTMENT OF PATHOLOGY AND GENOMIC MEDICINE Urobilinogen, UA <2.0 <2.0 [facility] DEPARTMENT OF PATHOLOGY AND GENOMIC MEDICINE Leukocyte esterase, UA Large (A) Negative [facility] DEPARTMENT OF PATHOLOGY AND GENOMIC MEDICINE Epithelial cells, UA 3 /HPF [facility] DEPARTMENT OF PATHOLOGY AND GENOMIC MEDICINE Round epithelial cells, UA <1 0 - 1 /HPF [facility] DEPARTMENT OF PATHOLOGY AND GENOMIC MEDICINE WBC, UA 27 (H) 0 - 4 /HPF [facility] DEPARTMENT OF PATHOLOGY AND GENOMIC MEDICINE RBC, UA 1 0 - 5 /HPF [facility] DEPARTMENT OF PATHOLOGY AND GENOMIC MEDICINE Bacteria, UA None seen None seen [facility] DEPARTMENT OF PATHOLOGY AND GENOMIC MEDICINE WBC clumps, UA Few (A) [facility] DEPARTMENT OF PATHOLOGY AND GENOMIC MEDICINE Yeast, UA None seen [facility] DEPARTMENT OF PATHOLOGY AND GENOMIC MEDICINE Yeast with pseudohyphae, UA None seen [facility] DEPARTMENT OF PATHOLOGY AND GENOMIC MEDICINE Specimen Urine Performing Organization Address [facility] [place] Phone Number [facility] DEPARTMENT OF PATHOLOGY AND [address] [place] [address] GENOMIC MEDICINE Gram stain (09/09/2017 5:25 AM CDT)Only the most recent of2 resultswithin the time period is included. Gram stain result Rare WBC's [facility] DEPARTMENT OF PATHOLOGY Many Gram positive rods AND GENOMIC MEDICINE Comment: Specimen Information Specimen Source: Urine Specimen Site: Clean catch Specimen Urine Performing Organization Address City/[facility]ercode Phone Number [facility] DEPARTMENT OF PATHOLOGY AND [address] [place] [address] MEDICINE Urine culture (09/09/2017 5:25 AM CDT)Only the most recent of2 resultswithin the time period is included. Urine culture isolate Mixed Gram positive heather [facility] DEPARTMENT OF 10-3 cfu/ml PATHOLOGY AND GENOMIC (A) MEDICINE Comment: Specimen Information Specimen Source: Urine Specimen Site: Clean catch Specimen Urine Narrative Performed At [facility] [id number] added adn read back to [facility] DEPARTMENT OF PATHOLOGY AND GENOMIC Ihaza at 15:54 09/09/17 MLKL2 MEDICINE ?Specimen must be received in the laboratory within 2 hours of ?collection. ?Specimen Source->Urine Performing Organization Address [facility] [place] Phone Number [facility] DEPARTMENT OF PATHOLOGY AND [address] [place] [address] GENOMIC MEDICINE Lipase level (09/09/2017 2:51 AM CDT) Lipase 19 13 - 60 U/L [facility] DEPARTMENT OF PATHOLOGY AND GENOMIC MEDICINE Specimen Plasma specimen Performing Organization Address [facility] Centercode Phone Number [facility] DEPARTMENT OF PATHOLOGY AND [address] [place] [address] GENOMIC MEDICINE Hepatic function panel (09/09/2017 2:51 AM CDT) Albumin 3.4 (L) 3.5 - 5.0 g/dL [facility] DEPARTMENT OF PATHOLOGY AND GENOMIC MEDICINE Total bilirubin 0.5 0.0 - 1.2 mg/dL [facility] DEPARTMENT OF PATHOLOGY AND GENOMIC MEDICINE Bilirubin direct <0.2 0.0 - 0.3 mg/dL [facility] DEPARTMENT OF PATHOLOGY AND GENOMIC MEDICINE Alkaline phosphatase 78 35 - 104 U/L [facility] DEPARTMENT OF PATHOLOGY AND GENOMIC MEDICINE Protein 6.5 6.3 - 8.3 g/dL [facility] DEPARTMENT OF Comment: PATHOLOGY AND GENOMIC 4.6-7.0 g/dL MEDICINE 1 week 4.4-7.6 g/dL 7 months-1year5.1-7.3 g/dL 1-2 years5.6-7.5 g/dL >3 years6.0-8.0 g/dL 18-150 6.3-8.3 g/dL ALT 20 5 - 50 U/L [facility] DEPARTMENT OF PATHOLOGY AND GENOMIC MEDICINE AST 29 10 - 35 U/L [facility] DEPARTMENT OF PATHOLOGY AND GENOMIC MEDICINE Specimen Plasma specimen Performing Organization Address City/[facility]ercodc Phone Number [facility] DEPARTMENT OF PATHOLOGY AND [address] [place] [address] GENOMIC MEDICINE ECG ED Preliminary Interpretation - NOT AN ORDER (09/09/2017 2:03 AM CDT) Narrative Performed At Cindi Fink MD 09/12/2017 10:58 PM ECG ED Preliminary Interpretation - Not an Order Performed by: CINDI FINK Authorized by: CINDI FINK ECG reviewed by ED Physician in the absence of a secondary set up man: yes Previous ECG: Previous ECG:Unavailable Interpretation: Interpretation: [...] perihilar and basilar congestive changes are developing. [facility]-[id number] Procedure Note Hm Interface, Radiology Results Incoming - 08/05/2017 9:33 AM CDT EXAMINATION: XR CHEST 1 VW PORTABLE CLINICAL HISTORY: Congestive Heart Failure COMPARISON: To previous examination from 08/03/2017 IMPRESSION: Heart is slightly enlarged and mild perihilar and basilar congestive changes are developing. [facility]-[id number] Performing Organization Address City/[facility] Centercode Phone Number [facility] [address] [place] [address] Hemoglobin & hematocrit (08/02/2017 5:00 PM CDT) HGB 11.2 (L) 12.0 - 16.0 g/dL [facility] DEPARTMENT OF PATHOLOGY AND GENOMIC MEDICINE HCT 34.2 (L) 37.0 - 47.0 % [facility] DEPARTMENT OF PATHOLOGY AND GENOMIC MEDICINE Specimen Blood Performing Organization Address [facility]ercodc Phone Number [facility] DEPARTMENT OF PATHOLOGY AND [address] [place] [address] [facility] MEDICINE ECG Pre/Post Op (08/01/2017 1:45 PM CDT) Ventricular rate 88 [facility] MUSE Atrial rate 113 [facility] MUSE QRSD interval 106 [facility] QT interval 408 [facility] M[facility] QTC interval 493 [facility] QRS axis 1 27 [facility] M[facility] T wave axis 12 [facility] MUSE EKG impression Atrial fibrillation-Nonspecific T wave [facility] MUSE abnormality , probably digitalis effect-Prolonged QT-Abnormal ECG- Performing Organization Address [facility]ercodc Phone Number [facility] MUSE [address] [place] [address] CBC hemogram (08/01/2017 1:14 PM CDT) WBC 10.02 4.50 - 11.00 k/uL [facility] DEPARTMENT OF PATHOLOGY AND GENOMIC MEDICINE RBC 4.72 4.20 - 5.50 m/uL [facility] DEPARTMENT OF PATHOLOGY AND GENOMIC MEDICINE HGB 12.7 12.0 - 16.0 g/dL [facility] DEPARTMENT OF PATHOLOGY AND GENOMIC MEDICINE HCT 39.9 37.0 - 47.0 % [facility] DEPARTMENT OF PATHOLOGY AND GENOMIC MEDICINE MCV 84.5 82.0 - 100.0 fL [facility] DEPARTMENT OF PATHOLOGY AND GENOMIC MEDICINE MCH 26.9 (L) 27.0 - 34.0 pg [facility] DEPARTMENT OF PATHOLOGY AND GENOMIC MEDICINE MCHC 31.8 31.0 - 37.0 g/dL [facility] DEPARTMENT OF PATHOLOGY AND GENOMIC MEDICINE RDW - SD 42.7 37.0 - 55.0 fL [facility] DEPARTMENT OF PATHOLOGY AND GENOMIC MEDICINE MPV 11.8 8.8 - 13.2 fL [facility] DEPARTMENT OF PATHOLOGY AND GENOMIC MEDICINE Platelet count 255 150 - 400 k/uL [facility] DEPARTMENT OF PATHOLOGY AND GENOMIC MEDICINE Nucleated RBC 0.00 /100 WBC [facility] DEPARTMENT OF PATHOLOGY AND GENOMIC MEDICINE Specimen Blood Performing Organization Address [facility] Centercode Phone Number [facility] DEPARTMENT OF PATHOLOGY AND [address] [place] [id number] [employer] MEDICINE Prepare RBC (08/01/2017 1:14 PM CDT) Product name Red Blood Cells -1, [facility] DEPARTMENT OF Leukored PATHOLOGY AND GENOMIC MEDICINE Unit number [id number] [facility] DEPARTMENT OF PATHOLOGY AND GENOMIC MEDICINE Product code [id number] [facility] DEPARTMENT OF PATHOLOGY AND GENOMIC MEDICINE Dispense status Returned to BB not [facility] DEPARTMENT OF transfused PATHOLOGY AND GENOMIC MEDICINE Blood expiration date [id number] [facility] DEPARTMENT OF PATHOLOGY AND GENOMIC MEDICINE Blood type code 8400 [facility] DEPARTMENT OF PATHOLOGY AND GENOMIC MEDICINE Blood type AB POSITIVE [facility] DEPARTMENT OF PATHOLOGY AND GENOMIC MEDICINE Product name Apheresis -1 LR #1 [facility] DEPARTMENT OF PATHOLOGY AND GENOMIC MEDICINE Unit number [id number] [facility] DEPARTMENT OF PATHOLOGY AND GENOMIC MEDICINE Product code [id number] [facility] DEPARTMENT OF PATHOLOGY AND GENOMIC MEDICINE Dispense status Returned to BB not [facility] DEPARTMENT OF transfused PATHOLOGY AND GENOMIC MEDICINE Blood expiration date [id number] [facility] DEPARTMENT OF PATHOLOGY AND GENOMIC MEDICINE Blood type code 8400 [facility] DEPARTMENT OF PATHOLOGY AND GENOMIC MEDICINE Blood type AB POSITIVE [facility] DEPARTMENT OF PATHOLOGY AND GENOMIC MEDICINE Performing Organization Address [facility] Centercode Phone Number [facility] DEPARTMENT OF PATHOLOGY AND [address] [place] [address] GENOMIC MEDICINE Type and screen (08/01/2017 1:14 PM CDT) ABO grouping AB [facility] DEPARTMENT OF PATHOLOGY AND GENOMIC MEDICINE Rh type POS [facility] DEPARTMENT OF PATHOLOGY AND GENOMIC MEDICINE Antibody screen (gel) NEG [facility] DEPARTMENT OF PATHOLOGY AND GENOMIC MEDICINE Specimen Blood Performing Organization Address City/[facility] Centercode Phone Number [facility] DEPARTMENT OF PATHOLOGY AND [address] [place] [address] [facility] CT Chest Wo Contrast (07/14/2017 1:04 PM COMMUTATOR UNDERCUTTER) Narrative Performed At PROCEDURE:CT CHEST WO CONTRAST [...] in the left apex. Pulmonary arterial hypertension. [facility]-[id number] . Procedure Note [facility], Radiology Results Incoming - 07/14/2017 1:29 PM COMMUTATOR UNDERCUTTER PROCEDURE: CT CHEST WO CONTRAST CLINICAL HISTORY: [...] in the left apex. Pulmonary arterial hypertension. [id number] . Performing Organization Address [facility] [place] Phone Number [facility] [address] [place] [address] CT Head Wo Contrast (07/14/2017 1:04 PM COMMUTATOR UNDERCUTTER) Narrative Performed At Study: CT HEAD WO [...] are unremarkable. IMPRESSION: No acute intracranial abnormality. [facility]-[id number] Procedure Note Hm Interface, Radiology Results Incoming - 07/14/2017 1:11 PM COMMUTATOR UNDERCUTTER Study: CT HEAD WO CONTRAST History:renal malignancy [...] are unremarkable. IMPRESSION: No acute intracranial abnormality. [facility]-[id number] Performing Organization Address [facility]ercodc Phone Number [facility] [address] [place] [address] CT Abdomen Pelvis W Wo Contrast (07/13/2017 1:50 PM COMMUTATOR UNDERCUTTER) Narrative Performed At EXAMINATION:CT ABDOMEN PELVIS W [...] an left-sided extrarenal pelvis. No retroperitoneal lymphadenopathy. [facility]-[id number] Procedure Note [facility], Radiology Results Incoming - 07/13/2017 2:49 PM COMMUTATOR UNDERCUTTER EXAMINATION: CT ABDOMEN PELVIS W WO CONTRAST [...] an left-sided extrarenal pelvis. No retroperitoneal lymphadenopathy. [facility]-[id number] Performing Organization Address City/[facility]/Zipcode Phone Number [address] [address] Urine eosinophils (07/12/2017 6:13 PM COMMUTATOR UNDERCUTTER) Eosinophils, urine NONE [facility] DEPARTMENT OF PATHOLOGY AND GENOMIC MEDICINE Specimen Urine Performing Organization Address City/[facility]c Phone Number [facility] DEPARTMENT OF PATHOLOGY AND [address] [place] [address] Sodium level, urine, random (07/12/2017 6:13 PM COMMUTATOR UNDERCUTTER) Sodium, urine, random 47 mEq/L [facility] DEPARTMENT OF PATHOLOGY AND GENOMIC MEDICINE Specimen Urine Performing Organization Address City/[facility]ercode Phone Number [facility] DEPARTMENT OF PATHOLOGY AND [address] [place] [address] Creatinine level, urine, random (07/12/2017 6:13 PM COMMUTATOR UNDERCUTTER) Creatinine, urine, random 103 mg/dL [facility] DEPARTMENT OF PATHOLOGY AND GENOMIC MEDICINE Specimen Urine Performing Organization Address City/[facility]ercode Phone Number [facility] DEPARTMENT OF PATHOLOGY AND [address] [place] [address] [place] Renal Doppler (07/05/2017 11:30 AM COMMUTATOR UNDERCUTTER) Narrative Performed At EXAMINATION:US RENAL DOPPLER [facility] CLINICAL HISTORY:N18.3 Chronic kidney diseasestage 3 (moderate), [...] No sonographic evidence of renal artery stenosis. [facility]-[id number] Procedure Note Interface, Radiology Results Incoming - 07/05/2017 1:08 PM COMMUTATOR UNDERCUTTER EXAMINATION: US RENAL DOPPLER CLINICAL HISTORY: N18.3 [...] No sonographic evidence of renal artery stenosis. [facility]-[id number] Performing Organization Address City/State/Zipcode Phone Number [facility] [address] [place] [address] [place] Renal (07/05/2017 11:10 AM COMMUTATOR UNDERCUTTER) Narrative Performed At EXAMINATION:US RENAL [facility] CLINICAL HISTORY:N18.3 Chronic kidney diseasestage 3 (moderate), I10 Essential (primary) hypertension, [id number][MODERATE] ESSENTIALHTN COMPARISON:None TECHNIQUE: Routine renal ultrasound obtained. [...] benign versus malignant, see above for details. [facility]-[id number] Procedure Note [facility], Radiology Results Incoming - 07/05/2017 1:07 PM COMMUTATOR UNDERCUTTER EXAMINATION: US RENAL CLINICAL HISTORY: N18.3 Chronic [...] benign versus malignant, see above for details. [facility]-[id number] Performing Organization Address City/State/Zipcode Phone Number [facility] [address] [place] [address] Large Joint Arthrocentesis (06/16/2017 12:10 PM COMMUTATOR UNDERCUTTER) Narrative Performed At Josemanuel Landrum MD 06/16/2017 12:10 PM Large Joint Arthrocentesis Consent given by: patient Site marked: site marked Timeout: Immediately prior to procedure a time out was called to verify the correct patient, procedure, equipment, manager product support and site/side marked as required Supporting Documentation [...] procedure well with no immediate complications after 04/29/2017 Insurance Payer Benefit Plan / Group Subscriber ID Type Phone Address MEDICARE MEDICARE PART A AND B xxxxxxxxxx [place], [place] COMMERCIAL MISC MISC COMMERCIAL xxxxxxxxxx Commercial [phone] (Work) Advance Directives Patient has advance care planning documents, and code status on file. For more information, please contact:Mateo Pittman[address] [place] [id number] Code Status Date Activated Date Inactivated Comments Full Code 11/08/2017 10:34 AM 11/17/2017 6:20 PM Code Status decision reached by: Patient Full Code 12/16/2015 4:43 AM 12/26/2015 7:54 PM Code Status decision reached by: Patient
[2018-04-30] MEDS ORDERED: HYDROCODONE/APAP 10/325 TAB ONE (19:45)
[2018-04-30] MEDS ORDERED: LIDOCAINE 1% MPF 2 ML AMPULE ONE (19:45)
[2018-04-30] MEDS ORDERED: TETANUS & DIPHTHERIA TOX,ADULT 0.5 ML VIAL ONE (19:46)
[2018-04-30] MEDS ORDERED: CEPHALEXIN 250 MG CAP ONE (19:46)
[2018-04-30] MEDS ORDERED: ONDANSETRON 4 MG/2 ML VIAL ONE (19:54)
[2018-04-30] MEDS ORDERED: NA CHLORIDE 0.9% 1,000 ML ONE (19:55)
[2018-04-30] MEDS ORDERED: FAMOTIDINE 20 MG/2 ML VIAL IV ONE (20:06)
[2018-04-30] MEDS ORDERED: KETOROLAC 30 MG/ML INJ ONE (20:06)
[2018-04-30 20:10] LABS: Absolute Lymphocytes (CBC) 0.2 K/uL (0.7-4.9); Absolute Monocytes 0.3 K/uL (0.1-1.3); Absolute Neutrophil 18.9 K/uL (1.8-8.0); Basophils % 0.2 % (0-1.3); Hematocrit 35.6 % (36.0-45.0); Lymphocytes % 1.2 % (15.3-44.8); MCH 28.5 pg (27.0-35.0); MCV 84.4 fL (80-100); MPV 9.9 fL (7.6-11.3); Monocytes % 1.5 % (3.3-12.3); RBC Red Blood Cell Count 4.21 M/uL (3.86-4.86)
[2018-04-30 20:22] LABS: Albumin 2.8 g/dL (3.4-5.0); Bilirubin Direct 0.3 mg/dL (0-0.2); Bilirubin Total 0.7 mg/dL (0.2-1.0); Potassium 4.1 mmol/L (3.5-5.1); Protein, Total 6.5 g/dL (6.4-8.2)
[2018-04-30 20:41] LABS: Platelet Estimate DECR; Platelets, Giant FEW
[2018-04-30 20:42] LABS: Blood Morphology Comment NOTED (NOT SEEN); Burr Cells 1+; Poikilocytosis 1+
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
--- NOTE | 2018-04-30 21:03 | EDPHYS ---
Physician Documentation [facility] Name: Lolly De La Rosa Age: 77 yrs Sex: Female : 1940 Arrival Date: 04/30/2018 Time: 19:08 Bed 5 Private MD: ED Physician Shon Osborne HPI: 04/30 21:03 This 77 yrs old Female presents to ER via EMS with complaints of vomiting. tw4 21:03 The patient presents to the emergency department with nausea, vomiting. tw4 05/01 04:28 Onset: The symptoms/episode began/occurred 3 day(s) ago. Possible causes: unknown. The tw4 symptoms are aggravated by nothing. The symptoms are alleviated by nothing. Associated signs and symptoms: The patient has no apparent associated signs or symptoms. Severity of symptoms: At their worst the symptoms were moderate in the emergency department the symptoms are unchanged. The patient has not experienced similar symptoms in the past. Historical: - Allergies: 04/30 19:30 Codeine; aa1 - Home Meds: 19:30 Warfarin Oral [Active]; "insulin" [Active]; "BP Med" [Active]; aa1 - PMHx: 19:30 CHF; Hypertension; Hypothyroidism; seasonal allergies; renal cancer; Diabetes - IDDM; aa1 Gastric Reflux; - PSHx: 19:30 L nephrectomy; aa1 - Immunization history:: Flu vaccine is not up to date. - Social history:: Smoking status: Patient/guardian denies using tobacco. - Ebola Screening: : No symptoms or risks identified at this time. ROS: 05/01 04:28 Constitutional: Negative for fever, chills, and weight loss, Eyes: Negative for injury, tw4 pain, redness, and discharge, Cardiovascular: Negative for chest pain, palpitations, and edema, Respiratory: Negative for shortness of breath, cough, wheezing, and pleuritic chest pain, Abdomen/GI: Negative for abdominal pain, nausea, vomiting, diarrhea, and constipation, Back: Negative for injury and pain, MS/Extremity: Negative for injury and deformity. Exam: 04:28 Head/Face: Normocephalic, atraumatic. Chest/axilla: Normal chest wall appearance and tw4 motion. Nontender with no deformity. No lesions are appreciated. Cardiovascular: Regular rate and rhythm with a normal S1 and S2. No gallops, murmurs, or rubs. Normal PMI, no JVD. No pulse deficits. Respiratory: Lungs have equal breath sounds bilaterally, clear to auscultation and percussion. No rales, rhonchi or wheezes noted. No increased work of breathing, no retractions or nasal flaring. Abdomen/GI: Soft, non-tender, with normal bowel sounds. No distension or tympany. No guarding or rebound. No evidence of tenderness throughout. 04:28 Back: No spinal tenderness. No costovertebral tenderness. Full range of motion. MS/ Extremity: Pulses equal, no cyanosis. Neurovascular intact. Full, normal range of motion. Neuro: Awake and alert, GCS 15, oriented to person, place, time, and situation. Cranial nerves II-XII grossly intact. Motor strength 5/5 in all extremities. Sensory grossly intact. Cerebellar exam normal. Normal gait. 04:28 Constitutional: The patient appears in obvious distress, mildly distressed, obviously ill, pale. Vital Signs: 04/30 19:10 BP 160 / 83 Sitting; Pulse 88; Resp 20; Temp 100(O); Pulse Ox 100% on R/A; mw2 19:10 BP 160 / 83; Pulse 88; Resp 20; Temp 100.0(O); Pulse Ox 100% on R/A; Weight 74.84 kg; aa1 Height 5 ft. 5 in. (165.10 cm); Pain 10/10; 20:38 BP 179 / 71; Pulse 91; Resp 20; Temp 99.4(O); Pulse Ox 93% on R/A; aa1 22:34 BP 161 / 69 Supine; Pulse 82; Resp 18; Temp 99.5; Pulse Ox 93% on R/A; mw2 19:10 Body Mass Index 27.46 (74.84 kg, 165.10 cm) aa1 MDM: 19:20 Patient medically screened. tw4 05/01 04:28 Differential diagnosis: Nonspecific abd pain, gastritis. Data reviewed: vital signs, tw4 nurses notes. 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 Counseling: I had a detailed discussion with the patient and/or guardian regarding: the historical points, exam findings, and any diagnostic results supporting the discharge/admit diagnosis. Medication response: Zofran markedly relieved the patient's nausea. Response to treatment: the patient's symptoms have markedly improved after treatment, and as a result, I will admit patient, administer antibiotics Rocephin, vancomycin, administer IV fluids. Physician consultation: Jessica Harrison MD regarding admission, and will see patient in ED. 04/30 19:29 Order name: Basic Metabolic Panel 4 04/30 19:29 Order name: CBC with Diff tw4 04/30 19:29 Order name: Creatinine for Radiology 4 04/30 19:29 Order name: Hepatic Function tw 04/30 19:29 Order name: Lipase [facility] 04/30 20:12 Order name: CBC with Automated Diff; Complete Time: 20:46 EDMS 04/30 20:47 Interpretation: Normal except: WBC 19.7; MCH 28.5; MCV 84.4; HCT 35.6; MN% 1.5; LYM% tw4 1.2; ARTURO% 96.1; LYMA 0.2; NEUT A 18.9. 04/30 20:19 Order name: Creatinine (Radiology Only); Complete Time: 20:46 EDMS 04/30 20:47 Interpretation: Normal except: CRE 4.10; GFR 11. tw4 04/30 20:22 Order name: Basic Metabolic Panel; Complete Time: 20:46 EDMS 04/30 20:47 Interpretation: Normal except: CRE 4.00; BUN 65; GLUC 329; CL 96; GFR 11; NA 133. 4 04/30 20:22 Order name: Liver (Hepatic) Function; Complete Time: 20:46 EDMS 04/30 20:47 Interpretation: ALK 152; BILID 0.3; ALB 2.8; GLOB 3.7; A/G 0.8. 4 04/30 20:22 Order name: Lipase; Complete Time: 20:46 EDMS 04/30 20:47 Interpretation: Normal except: LIP 27. 4 04/30 20:42 Order name: Manual Differential; Complete Time: 20:46 EDMS 04/30 20:48 Interpretation: Normal except: SEGS 85; BANDS [F] 13; LYM 1. tw4 04/30 20:54 Order name: Lactate [facility] 04/30 21:26 Order name: Urine Culture em1 04/30 21:26 Order name: Urine Microscopic Only 1 04/30 19:29 Order name: IV Saline Lock; Complete Time: 20:03 4 04/30 19:29 Order name: Labs collected and sent; Complete Time: 20:03 tw4 04/30 20:54 Order name: Chest Single View XRAY tw4 04/30 20:54 Order name: Urine Dipstick-Ancillary (obtain specimen); Complete Time: 21:31 tw4 04/30 21:07 Order name: Straight Cath - Urine; Complete Time: 21:31 aa1 04/30 21:27 Order name: Urine Dipstick--Ancillary (enter results) em1 04/30 21:30 Order name: Lactate EDMS 04/30 21:30 Order name: Urine Dipstick-Ancillary EDMS 04/30 21:54 Order name: Urine Microscopic Only EDMS 04/30 22:30 Order name: Abdomen Exam Limited EDMS Administered Medications: 04/30 19:53 Drug: NS 0.9% 1000 ml Route: IV; Rate: 1 bolus; Site: left antecubital; aa1 21:40 Follow up: IV Status: Completed infusion aa1 20:00 Drug: Pepcid 20 mg Route: IVP; Site: left antecubital; aa1 21:00 Follow up: Response: No adverse reaction; Vomiting decreased aa1 20:01 Drug: TORadol 15 mg Route: IVP; Site: left antecubital; aa1 21:00 Follow up: Response: No adverse reaction; Pain is decreased aa1 20:04 Drug: Zofran 4 mg Route: IVP; Site: left antecubital; aa1 23:13 Follow up: Response: No adverse reaction; Nausea is decreased aa1 21:43 Drug: vancoMYCIN 1 grams Route: IVPB; Infused Over: 2 hrs; Site: left antecubital; aa1 23:00 Follow up: IV Status: Infusion continued upon admission aa1 Disposition: 04/30/18 21:03 Hospitalization ordered by Jessica Harrison for Inpatient Admission. Preliminary diagnosis are Acute kidney failure, unspecified, Dehydration, Other specified sepsis. - Bed requested for Telemetry/MedSurg (Inpatient). - Status is Inpatient Admission. aa1 - Condition is Fair. - Problem is an ongoing problem. - Symptoms have improved. UTI on Admission? No Signatures: Dispatcher [employer] EDMS Eleni Cunha RN RN kl Kern, Alissa, RN RN aa1 Shon Osborne MD MD 4 Corrections: (The following items were deleted from the chart) 22:42 21:03 Hospitalization Ordered by Jessica Harrison MD for Inpatient Admission. Preliminary kl diagnosis is Acute kidney failure, unspecified; Dehydration; Other specified sepsis. Bed requested for Telemetry/MedSurg (Inpatient). Status is Inpatient Admission. Condition is Fair. Problem is an ongoing problem. Symptoms have improved. UTI on Admission? No. tw4 23:17 22:42 04/30/2018 21:03 Hospitalization Ordered by Jessica Harrison MD for Inpatient aa1 Admission. Preliminary diagnosis is Acute kidney failure, unspecified; Dehydration; Other specified sepsis. Bed requested for Telemetry/MedSurg (Inpatient). Status is Inpatient Admission. Condition is Fair. Problem is an ongoing problem. Symptoms have improved. UTI on Admission? No. kl
[2018-04-30 21:29] LABS: Urine Blood 2+ (NEG); Urine Glucose 1+ (NEG); Urine Protein 2+ (NEG); Urine Specific Gravity 1.015 (1.005-1.030); Urine pH 5.5 (5.0-7.0)
[2018-04-30] MEDS ORDERED: VANCOMYCIN 1 GM/250 ML BAG ONE (21:44)
[2018-04-30 21:54] LABS: Urine Bacteria >50 /HPF (<20); Urine Culture Reflex Order NOT NEEDED; Urine RBC >50 /HPF (NONE SEEN)
[2018-05-01 00:02] VITALS: BMI 27.8
[2018-05-01] MEDS ORDERED: HYDROCODONE/APAP 10/325 TAB ONE (00:21)
[2018-05-01] MEDS ORDERED: TRAZODONE 50 MG TABLET PO PRN (00:34)
[2018-05-01] MEDS ORDERED: ONDANSETRON 4 MG/2 ML VIAL IV PRN (00:34)
[2018-05-01] MEDS: NA CHLORIDE 0.9% 1,000 ML IV SCH ×3 (00:53→21:18)
[2018-05-01] MEDS: INSULIN -REGULAR HUMAN 50 UNIT/0.5 ML ML SQ SCH ×5 (01:07→21:00)
[2018-05-01 06:31] LABS: Absolute Lymphocytes (CBC) 0.3 K/uL (0.7-4.9); Absolute Monocytes 0.3 K/uL (0.1-1.3); Absolute Neutrophil 13.1 K/uL (1.8-8.0); Basophils % 0.3 % (0-1.3); Eosinophils % 0.8 % (0-4.4); Hematocrit 33.4 % (36.0-45.0); Lymphocytes % 1.9 % (15.3-44.8); MCH 28.7 pg (27.0-35.0); MCV 84.8 fL (80-100); MPV 9.9 fL (7.6-11.3); Monocytes % 2.4 % (3.3-12.3); RBC Red Blood Cell Count 3.94 M/uL (3.86-4.86)
[2018-05-01 06:34] LABS: Magnesium 2.1 mg/dL (1.8-2.4); Potassium 3.9 mmol/L (3.5-5.1)
--- NOTE | 2018-05-01 07:21 | P.HP ---
Certification for Inpatient Patient admitted to: Inpatient With expected LOS: >2 Midnights Practitioner: I am a practitioner with admitting privileges, knowledge of patient current condition, hospital course, and medical plan of care. Services: Services provided to patient in accordance with Admission requirements found in Title 42 Section 412.3 of the Code of Federal Regulations Patient History Date of Service: 04/30/18 Reason for admission: complicated UTI History of Present Illness: Ms De La Rosa is a 77 years old with history of HTN, hypothyroidism, IDDM who came to ED a couple of days ago due to shoulder pain, she was discharged with Tramadol PO. When the patient took this medication, she become nauseated, start vomiting and having diarrhea. Her symptoms got worse over the time, and today she came for further evaluation. She denied fever at home. At arrival, she was febrile 100.0 F. Lab work remarkable for leukocytosis with bandemia. Lactate within normal limits, creatinine 4.1, hyperglycemia. UA abnormal consistent with UTI. Allergies codeine Allergy (Unknown, Verified 08/02/14 04:19) unknown Home Medications: cloNIDine HCl [Catapres*] 0.1 mg PO BID 07/25/14 Metoprolol Tartrate [Lopressor*] 50 mg PO BID #60 tab 08/04/14 Albuterol Sulfate [Proair Hfa] 8.5 gm IH DAILY 05/01/18 Atorvastatin Calcium [Lipitor] 20 mg PO BEDTIME 05/01/18 Calcitrol [Rocaltrol] 0.5 mcg PO DAILY 05/01/18 Fluticasone/Salmeterol [Advair 250/50 Diskus*] 2 puff IH BID 05/01/18 Hydralazine HCl 50 mg PO TID 05/01/18 Insulin Glargine,Hum.rec.anlog [Daiana Edwards] 30 unit SQ DAILY 05/01/18 Insulin Lispro [Humalog Kwikpen U-100] 5 unit SQ TID 05/01/18 Iron,Carbonyl/Vit C/Vit B12/FA [Iron 100 Plus Tablet] 1 each PO DAILY 05/01/18 Magnesium Oxide [Mag 0X Tab] 400 mg PO DAILY 05/01/18 Montelukast [Singulair] 10 mg PO DAILY 05/01/18 Nifedipine Xl [Procardia XL] 60 mg PO DAILY 05/01/18 Pantoprazole [Protonix Tab] 40 mg PO BID 05/01/18 Potassium Chloride 10 meq PO DAILY 05/01/18 Propafenone [Rythmol] 150 mg PO BID 05/01/18 Torsemide [Demadex] 20 mg PO DAILY 05/01/18 Tramadol HCl [Ultram] 50 mg PO Q6HR PRN 05/01/18 Warfarin Sodium 4 mg PO SEECOM 05/01/18 Warfarin Sodium [Coumadin] 1 mg PO SEECOM 05/01/18 - Past Medical/Surgical History Has patient received pneumonia vaccine in the past: Yes Diabetic: Yes -: htn -: dm -: arterial occulation -: bronchitis -: [place] -: GERD -: fibromyalgia -: ear sx -: hysterectomy -: appy -: knee sx -: hernia repair -: removal of left kidney - Family History Brother -: Heart disease, Diabetes Mother -: Heart disease, Hypertension, Stroke Sister -: Heart disease, Hypertension Notes: Damage from rheumatic rever - Social History Smoking Status: Never smoker Alcohol use: No CD- Drugs: No Caffeine use: Yes Place of Residence: Home Review of Systems 10-point ROS is otherwise unremarkable Physical Examination - Vital Signs Temperature: 98.6 F Blood Pressure: 163/76 Pulse: 94 Respirations: 20 Pulse Ox (%): 94 - Physical Exam General: Alert, In no apparent distress HEENT: Atraumatic, PERRLA, Other (dry mucous.), EOMI, Sclerae nonicteric Neck: Supple, 2+ carotid pulse no bruit, No LAD, Without JVD or thyroid abnormality Respiratory: Clear to auscultation bilaterally, Normal air movement Cardiovascular: Regular rate/rhythm, Normal S1 S2 Gastrointestinal: Normal bowel sounds, Tenderness (RQU tenderness to palpation.) Musculoskeletal: No tenderness Integumentary: No rashes Neurological: Normal speech, Normal strength at 5/5 x4 extr, Normal tone, Normal affect Lymphatics: No axilla or inguinal lymphadenopathy - Studies Laboratory Data (last 24 hrs) 04/30/18 19:50: Creatinine 4.10 H 04/30/18 19:50: WBC 19.7 H, Hgb 12.0, Hct 35.6 L, Plt Count 102 L 04/30/18 19:50: Sodium 133 L, Potassium 4.1, BUN 65 H, Creatinine 4.00 H, Glucose 329 H, Total Bilirubin 0.7, AST 26, ALT 31, Alkaline Phosphatase 152 H, Lipase 27 L Assessment and Plan - Problems (Diagnosis) (1) Complicated UTI (urinary tract infection) Current Visit: Yes Status: Acute (2) Acute kidney injury superimposed on CKD Current Visit: Yes Status: Acute (3) Diabetes mellitus Onset Date: 07/25/14 Current Visit: No Status: Acute Qualifiers: Diabetes mellitus type: type 2 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 Only obvious source so far is UTI, however, she has tenderness to palpation RUQ. Will order ABD US to R/O cholecystitis/cholelithiasis. Will start empiric IV antibiotics, IV fluids, consult nephrology. - Advance Directives Does patient have a Living Will: Yes Does patient have a Durable POA for Healthcare: Yes - Code Status/Comfort Care Code Status Assessed: Yes Code Status: Full Code
[2018-05-01] MEDS: ACETAMINOPHEN 500 MG TAB PO PRN ×2 (07:26→12:14)
--- NOTE | 2018-05-01 07:46 | RAD REPORT ---
EXAM DESCRIPTION: David Single View04/30/2018 10:16 pm CLINICAL HISTORY: Chest pain COMPARISON: 2016 FINDINGS: The lungs appear clear of acute infiltrate. The heart is mildly enlarged IMPRESSION: No acute abnormalities displayed
[2018-05-01] MEDS ORDERED: KCL 20 MEQ/100 mL IVPB 20 MEQ/100 ML BAG IV SCH (08:00)
--- NOTE | 2018-05-01 08:11 | RAD REPORT ---
EXAM DESCRIPTION: US - Abdomen Exam Limited - 04/30/2018 10:34 pm CLINICAL HISTORY: Abdominal pain. COMPARISON: None. FINDINGS: Couple of echogenic structures are present the gallbladder. At least 1 exhibits posterior shadowing consistent with a gallstone. The gallbladder wall is upper limits normal thickness. The biliary tree is normal caliber. IMPRESSION: Cholelithiasis
[2018-05-01] MEDS: CEFTRIAXONE/SWI 1gm 1 GM/10 ML SYR IV SCH (08:49)
[2018-05-01] MEDS ORDERED: CEFTRIAXONE 1 GM/NS 50 ML 1 GM/50 ML BAG IV SCH (09:00)
[2018-05-01] MEDS: PROMETHAZINE 25 MG/ML VIAL IV PRN ×2 (12:15→21:16)
[2018-05-01] MEDS ORDERED: MORPHINE 2 MG/ML SYR IV ONE (12:22)
[2018-05-01] MEDS: HYDRALAZINE HCL 20 MG/ML VIAL IV PRN (12:35)
[2018-05-01] MEDS: INSULIN LISPRO 100 UNIT/1 ML SQ SCH ×2 (14:21→21:00)
[2018-05-01] MEDS ORDERED: WARFARIN SODIUM 4 MG TAB PO SCH (17:00)
--- NOTE | 2018-05-01 19:41 | PN ---
Subjective: Patient is seen and examined. Chart reviewed and case discussed with RN. The patient a ppears ill with generalized malaise. She reports musculoskeletal pain due to significant coughing. Code Status: Full code. Medications: List reviewed. Physical Examination: VITAL SIGNS: Temperature 98.2, heart rate 92, blood pressure 183/77, respirations 18, O2 95% on 2 L via nasal cannula. GENERAL: Awake, alert, oriented x3. Some mild distress due to pain. Elderly female, ill appearing. CV: S1, S2, irregularly irregular. Peripheral pulses present. Respiratory: Moving air well bilaterally. No wheezing or stridor. GASTROINTESTINAL: Abdomen is soft, nontender, and nondistended. Positive bowel sounds. No guarding or rigidity. EXTREMITIES: No clubbing, cyanosis, or edema. NEUROLOGIC: Cranial nerves 2-12 intact grossly. No focal neurological deficit. Speech is normal. Laboratory Data: Sodium 134, potassium 3.9, chloride 102, CO2 25, BUN 67, creatinine 3.7, glucose 12 , calcium 7.9, magnesium 2.1. WBC 13.8, H and H 11.3 and 33.4, platelets 91, neutrophils 94.6%, nitr ite negative, leukocyte esterase 2+, WBCs greater than 50, greater than 50 bacteria. Urine culture p ending. Assessment And Plan: A 77-year-old female with: 1.Sepsis. The patient has elevated WBC count of 19,000 with left shift bandemia, fever 100, tachyca rdic. Source of infection is urinary tract infection. Lactate, however, is normal. The patient adamson s have kidney dysfunction, which appears to be [id number]. We will continue with IV fluid hydr ation and IV antibiotics. Cultures are pending. 2.[id number] kidney disease stage 3. Creatinine is improving. Dr. Clayton was been consulte d. 3.Diabetes mellitus type 2 with long-term use of insulin with hyperglycemia. We will continue slidi ng scale insulin. Monitor Accu-Cheks. 4.Essential hypertension, uncontrolled. We will resume home medications as appropriate. 5.Acute cystitis with hematuria. We will continue on IV antibiotics and follow up on culture result s. 6.Gastrointestinal and deep venous thrombosis prophylaxes addressed. /MODGilberto Voice ID: [id number] Report ID: [id number]
[2018-05-01] MEDS ORDERED: HOME MED 1 EA UNK (Fluticasone/Salmeterol [Advair 250/50 Diskus*] 2 PUFF) IH SCH (21:00)
[2018-05-01] MEDS: METOPROLOL TAR 50 MG TAB PO SCH (21:17)
[2018-05-01] MEDS: ATORVASTATIN 20 MG TAB PO SCH (21:17)
[2018-05-01] MEDS: PROPAFENONE HCL 150 MG TAB PO SCH (21:17)
[2018-05-01] MEDS: PANTOPRAZOLE 40MG TABLET PO SCH (21:18)
[2018-05-01] MEDS ORDERED: AMLODIPINE 5 MG TAB PO ONE (22:30)
[2018-05-01] MEDS: TRAMADOL HCL 50 MG TAB PO PRN (23:43)
--- NOTE | 2018-05-02 03:37 | CON ---
Date of Consultation: 05/01/2018 Chief Complaint: Vcmoe-re-mgtipby kidney injury. History Of Present Illness: The patient was found to have nonoliguric acute kidney injury. She pres ented to the hospital because of generalized weakness. She has history of hypertension, hypothyroidi sm, and insulin-dependent diabetes mellitus. She came to the hospital because of shoulder pain and g eneralized weakness. She primarily was treated with tramadol. She was avoiding nonsteroidal anti-in flammatory medication. She became nauseated and vomited and developed diarrhea. Symptoms have worse christopher over last 2 days. The patient developed fever with elevated temperature up to 100 Fahrenheit. T he patient's workup showed leukocytosis and bandemia. Lactic acid was normal. Creatinine was elevat ed up to 4.1. The patient was found to have abnormal UA and was diagnosed with urinary tract infecti on. The patient was found to have moderately severe fgbyp-dr-zbxhfpx kidney injury. Chemistry showed tod ay BUN of 67, creatinine 3.7. On arrival to the hospital on April 30, creatinine was 4.0. Review of Systems: General: The patient complains of generalized weakness. Eyes: Denies vision changes. Ears, Nose, Mouth, and Throat: Denies sore throat or earache. Respiratory: Denies PND or orthopnea. Cardiovascular: Denies chest pain or palpitation. GI: Denies melena or hematemesis. She is complaining of diarrhea, nausea, and vomiting. Musculoskeletal: Denies muscle aches or joint swelling. All other systems are reviewed, and all are negative. Past Medical History: 1.Chronic kidney disease, solitary kidney. Baseline creatinine back in 2016 was 1.8. 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 Pate. 2.The patient has history of hypertension, diabetes mellitus, anemia and CKD, renal osteodystrophy, GERD, bronchitis, arterial occlusion, fibromyalgia, hysterectomy, knee surgery, hernia repair, and re moval of the left kidney. Family History: Heart disease and diabetes in her brother. Mother had heart disease, hypertension, and stroke. Sister; heart disease and hypertension. Physical Examination: Vital Signs: Blood pressure 163/76, heart rate is 94, temperature 98.6, and SpO2 94%. Eyes: Anicteric sclerae. EOMI. Ears, Nose, Mouth, and Throat: Moist. No pallor. Neck: Supple. No JVD. No bruits. Lungs: Clear to auscultation bilaterally. No wheezing. No rhonchi. Abdomen: Soft, benign, nontender. No rebound. No guarding. Extremities: No clubbing. No cyanosis. No edema. Neurological: Moving extremities. Cranial nerves intact. Psychiatric: Alert and oriented x3. Normal affect. Laboratory Data: Creatinine 4.1. WBC 19.7, hemoglobin 12, hematocrit 35.6, and platelet count is 10 2. Sodium 133, potassium 4.1, BUN 65, creatinine 4.0, glucose 329. Bilirubin 0.7. Impression And Plan: 1.Complicated urinary tract infection. Continue antibiotics. 2.Acute kidney injury with superimposed chronic kidney disease. The patient has chronic kidney dise ase stage 3 advancing to stage 4. The patient developed acute kidney injury due to prerenal azotemia . Continue IV fluids and monitor renal function closely. Avoid nonsteroidal anti-inflammatory medic ation. 3.Diabetes mellitus. Continue insulin. 4.Shoulder pain. Workup is conducted by primary team. The patient may need to be ruled out for sep tic joint. 5.Leukocytosis, likely secondary to urinary tract infection. Continue IV antibiotics. Adjust antib iotic dose per renal dose. 6.Microbiology test is pending for urine test to rule out bacteriuria. Blood culture is pending. AURELIANO/BALTA Voice ID: [id number] Report ID: [id number]
[2018-05-02] MEDS: ACETAMINOPHEN 500 MG TAB PO PRN ×2 (04:06→14:07)
[2018-05-02] MEDS: NA CHLORIDE 0.9% 1,000 ML IV SCH ×3 (06:16→20:49)
[2018-05-02 06:28] LABS: Absolute Lymphocytes (CBC) 0.2 K/uL (0.7-4.9); Absolute Monocytes 0.9 K/uL (0.1-1.3); Absolute Neutrophil 11.8 K/uL (1.8-8.0); Basophils % 0.2 % (0-1.3); Eosinophils % 0.1 % (0-4.4); Hematocrit 30.5 % (36.0-45.0); Lymphocytes % 1.6 % (15.3-44.8); MCH 28.3 pg (27.0-35.0); MCV 84.7 fL (80-100); MPV 10.3 fL (7.6-11.3); Monocytes % 7.2 % (3.3-12.3); RBC Red Blood Cell Count 3.61 M/uL (3.86-4.86)
[2018-05-02 06:43] LABS: Potassium 4.5 mmol/L (3.5-5.1)
[2018-05-02 07:36] LABS: Anisocytosis 2+; Blood Morphology Comment NOTED (NOT SEEN); Burr Cells 2+; Platelet Estimate DECR; Toxic Granulation 2+; Urine White Blood Cell Casts OK
[2018-05-02 07:51] LABS: Protime INR 14.47
[2018-05-02] MEDS: INSULIN LISPRO 100 UNIT/1 ML SQ SCH ×3 (08:55→20:51)
[2018-05-02] MEDS: INSULIN GLARGINE 100 UNITS/ML SQ SCH (08:55)
[2018-05-02] MEDS: INSULIN -REGULAR HUMAN 50 UNIT/0.5 ML ML SQ SCH ×4 (08:55→20:51)
[2018-05-02] MEDS: PANTOPRAZOLE 40MG TABLET PO SCH ×2 (08:56→20:48)
[2018-05-02] MEDS: METOPROLOL TAR 50 MG TAB PO SCH ×2 (08:56→20:48)
[2018-05-02] MEDS: CEFTRIAXONE/SWI 1gm 1 GM/10 ML SYR IV SCH (08:56)
[2018-05-02] MEDS: PROPAFENONE HCL 150 MG TAB PO SCH ×2 (08:57→20:48)
[2018-05-02] MEDS: MONTELUKAST 10 MG TAB PO SCH (08:57)
[2018-05-02] MEDS ORDERED: ALBUTEROL INHALER 60 PUFF/8 GM IH SCH (09:00)
--- NOTE | 2018-05-02 09:15 | RAD REPORT ---
EXAM DESCRIPTION: US - Renal Ultrasound-Complete - 05/02/2018 8:10 am CLINICAL HISTORY: arf Flank pain, history of left nephrectomy for carcinoma. COMPARISON: Abdomen Exam Limited dated 04/30/2018 FINDINGS: The left kidney is surgically absent. The right kidney slightly echogenic without hydronep hrosis. The right kidney measures 13.2 x 5.0 x 4.9 cm. No hydronephrosis, focal mass or perinephric fluid. The urinary bladder is incompletely distended without gross abnormality seen. IMPRESSION: Mildly echogenic right kidney suggesting underlying medical renal disease. Left kidney i s surgically absent.
--- NOTE | 2018-05-02 14:31 | P.PN ---
Subjective Date of Service: 05/02/18 Chief Complaint: complicated UTI Subjective: No new changes, No C/O voiced Patient seen and examined at bedside. No family at bedside. Chart reviewed and case discussed with nursing staff. Patient reports right shoulder pain Denies any other complaints this morning Review of Systems As noted Physical Examination - Vital Signs Temperature: 98.2 F Blood Pressure: 144/64 Pulse: 53 Respirations: 20 Pulse Ox (%): 92 - Physical Exam General: Mild distress, Other (Ill appearing) Respiratory: Clear to auscultation bilaterally, Normal air movement Cardiovascular: Irregular heart rate/rhythm (irregularly irregular) Gastrointestinal: Normal bowel sounds, No tenderness, No rebound, No guarding Assessment And Plan - Plan This is a 77-year-old female with: Sepsis. Improving with WBC count of 13,000, decreased fever curve, improved heart rate. Source of infection is urinary tract infection. Continue IV fluid hydration and IV antibiotics. Urine Cultures are still pending. Clinically improving on IV antibiotics, No blood cultures drawn initially. Unfortunately since she has been on IV antibiotics since admission, unsure how much blood cultures would provide at this time. If patient does spike another fever, will go ahead and get blood cultures at that time. Elevated INR Patient anticoagulated with Coumadin at home for Will hold Coumadin today, recheck INR in the morning Right shoulder pain Recent right shoulder x-ray negative for any acute abnormalities or fractures. May consider getting MRI without contrast (due to renal disease) of the joint if symptoms do not improve. Pizpo-co-musmjiq kidney disease stage 3. Creatinine is improving. Dr. Clayton was been consulted. Recommendations appreciated Acute cystitis with hematuria. We will continue on IV antibiotics and follow up on culture results Diabetes mellitus type 2 with long-term use of insulin with hyperglycemia. We will continue sliding scale insulin. Monitor Accu-Cheks. Essential hypertension, improved control We will resume home medications as appropriate. History of left nephrectomy DVT prophylaxis: Coumadin GI prophylaxis: Protonix Diet: Renal Disposition: Pending symptomatic improvement Time Spent Managing PTS Care (In Minutes): 45
--- NOTE | 2018-05-02 14:56 | P.PN ---
Subjective Date of Service: 05/02/18 Chief Complaint: complicated UTI Rt shoulder pain Cr improved to 3.2 will reduce IVF rate INR 14, hold Coumadin Physical Examination - Vital Signs Temperature: 98.2 F Blood Pressure: 144/64 Pulse: 53 Respirations: 20 Pulse Ox (%): 92 - Physical Exam General: Oriented x3, Moderate distress HEENT: Atraumatic Neck: Supple, Without JVD or thyroid abnormality Respiratory: Other (decreased entry ) Cardiovascular: No edema, Regular rate/rhythm, Normal S1 S2 Gastrointestinal: Normal bowel sounds Assessment And Plan - Current Problems (Diagnosis) (1) Acute kidney injury superimposed on CKD Onset Date: 05/01/18 Current Visit: Yes Status: Acute (2) Complicated UTI (urinary tract infection) Onset Date: 05/01/18 Current Visit: Yes Status: Acute (3) Diabetes mellitus Onset Date: 07/25/14 Current Visit: No Status: Acute Qualifiers: Diabetes mellitus type: type 2 Diabetes mellitus medical terminologist insulin use: with nursing home use Diabetes mellitus complication status: with unspecified complications Qualified Code(s): E11.8 - Type 2 diabetes mellitus with unspecified complications; Z79.4 - longterm (current) use of insulin (4) Hypertension Onset Date: 07/25/14 Current Visit: No Status: Acute Qualifiers: Hypertension type: essential hypertension Qualified Code(s): I10 - Essential (primary) hypertension - Plan SHASHA on CKD SHASHA likely due to prerenal CKD 2/2 DM and solitary kidney had Lt nephrectomy in 07/2017 , as per Pt cr 1.9 before surgery and immediately after suurgery and lately trendimg up to 2.5-2.9 pt aware that she might require HD if Cr cont to rend up renal US no hydro renal dose meds will reduce IVF rate HTN cont current meds Anemia F/u SPEP, UPEP and iron panel Diabetes mellitus. as per primary Shoulder pain. Workup is conducted by primary team. Sepsis with bandemia F/U cultures Cont abx Afib INR 14 , coumadin on hold
[2018-05-02] MEDS: HYDRALAZINE HCL 20 MG/ML VIAL IV PRN (18:00)
[2018-05-02] MEDS ORDERED: LORazepam 2 MG/ML VIAL IV ONE (18:38)
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
[2018-05-02] MEDS: ATORVASTATIN 20 MG TAB PO SCH (20:48)
[2018-05-03 06:20] LABS: Protime INR 10.62
[2018-05-03 06:38] LABS: Ferritin 300.5 ng/mL (8-388)
[2018-05-03] MEDS: INSULIN -REGULAR HUMAN 50 UNIT/0.5 ML ML SQ SCH ×4 (07:30→21:00)
[2018-05-03] MEDS: NA CHLORIDE 0.9% 1,000 ML IV SCH ×2 (07:40→09:19)
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
[2018-05-03] MEDS: INSULIN LISPRO 100 UNIT/1 ML SQ SCH ×3 (09:00→21:00)
[2018-05-03] MEDS: METOPROLOL TAR 50 MG TAB PO SCH ×2 (09:15→22:21)
[2018-05-03] MEDS: CEFTRIAXONE/SWI 1gm 1 GM/10 ML SYR IV SCH (09:15)
[2018-05-03] MEDS: PANTOPRAZOLE 40MG TABLET PO SCH ×2 (09:15→22:19)
[2018-05-03] MEDS: PROPAFENONE HCL 150 MG TAB PO SCH ×2 (09:15→22:21)
[2018-05-03] MEDS: INSULIN GLARGINE 100 UNITS/ML SQ SCH (09:16)
[2018-05-03] MEDS: MONTELUKAST 10 MG TAB PO SCH (09:16)
[2018-05-03 10:12] LABS: Albumin 2.1 g/dL (3.4-5.0); Bilirubin Total 0.5 mg/dL (0.2-1.0); Potassium 3.8 mmol/L (3.5-5.1); Protein, Total 5.5 g/dL (6.4-8.2)
[2018-05-03] MEDS ORDERED: Levofloxacin 250mg IV 250 MG/50 ML BAG IV SCH (12:00)
--- NOTE | 2018-05-03 12:38 | P.PN ---
Subjective Date of Service: 05/03/18 Chief Complaint: complicated UTI Patient seen and examined at bedside. No family at bedside. Chart reviewed and case discussed with nursing staff. Patient reports right shoulder pain, MRI done with no acute changes. Denies any other complaints this morning Review of Systems Noted Physical Examination - Vital Signs Temperature: 97.9 F Blood Pressure: 193/80 Pulse: 77 Respirations: 18 Pulse Ox (%): 95 - Physical Exam General: Alert, Mild distress HEENT: Atraumatic, PERRLA, EOMI Neck: Supple, JVD not distended Respiratory: Clear to auscultation bilaterally, Normal air movement Cardiovascular: Regular rate/rhythm, Normal S1 S2 Gastrointestinal: Normal bowel sounds, No tenderness Musculoskeletal: No tenderness Integumentary: No rashes Neurological: Normal speech, Normal tone, Normal affect Assessment And Plan - Plan This is a 77-year-old female with: Sepsis. Improving with WBC count of 13,000, afebrile for 24 hr, improved heart rate. Source of infection is urinary tract infection. Continue IV fluid hydration and IV antibiotics. Urine Cultures are still pending. Clinically improving on IV antibiotics, No blood cultures drawn initially. Unfortunately since she has been on IV antibiotics since admission, unsure how much blood cultures Elevated INR Patient anticoagulated with Coumadin at home for Will hold Coumadin today, recheck INR improved to 10. We will continue to hold Coumadin for today, recheck INR tomorrow Right shoulder pain Recent right shoulder x-ray negative for any acute abnormalities or fractures. MRI of the right shoulder also negative for any acute abnormalities, doubtful for any tears. Discussed with patient regarding putting lidocaine patch on shoulder to help with the pain. Physical therapy ordered. Pggvy-fl-zdvapxg kidney disease stage 3. Creatinine is improving. Dr. Clayton was been consulted. Recommendations appreciated Acute cystitis with hematuria with E. coli Urine cultures finalized, E. coli sensitive to most cephalosporins. Will switch patient to oral cefuroxime 250 mg b.i.d.. Discontinue IV Rocephin Diabetes mellitus type 2 with long-term use of insulin with hyperglycemia. We will continue sliding scale insulin. Monitor Accu-Cheks. Essential hypertension, improved control We will resume home medications as appropriate. History of left nephrectomy DVT prophylaxis: Coumadin GI prophylaxis: Protonix Diet: Renal Disposition: Pending symptomatic improvement
[2018-05-03] MEDS: ACETAMINOPHEN 500 MG TAB PO PRN (13:16)
--- NOTE | 2018-05-03 15:46 | PN ---
Date of Progress Note: 05/03/2018 Subjective: The patient doing the same, still complaining from shoulder pain. No nausea. No vomiti ng. Had some shortness of breath. Physical Examination: Vital Signs: When I saw the patient, blood pressure of 193/80, pulse of 78. Afebrile. The patient had good urine output of 1000. Chest: Faint crackles on the base. Heart: S1-S2 regular. Abdomen: Soft. Nontender. Extremity: Trace edema. Laboratory Data: WBC 13, H and H 10.2/30.5, platelet of 81. Sodium 139, potassium 3.8, bicarb 24, B UN 66, creatinine of 3, GFR of 15, trending up. Calcium 8.1. T-sat of 36. Ferritin of 300. Current Medications: The patient on its include: 1.Ceftriaxone. 2.Promethazine. 3.Atorvastatin. 4.Hydralazine. 5.Metoprolol. 6.Pantoprazole. 7.IV fluid. Assessment And Plan: Acute kidney injury secondary to cardiomegaly with congestion. Renal ultrasoun d 13.2 right kidney. Left kidney has been removed. Assessment And Plan: 1.Acute kidney injury, normal-sized kidney, secondary to solitary kidney status post nephrectomy, sl ightly on the over volume side. I am going to go ahead and place the patient on Lasix. Discontinue IV fluid and we will follow up the patient. 2.Hypertension, not controlled. I am going to go ahead and add Norvasc. Increase metoprolol to 100 mg, and we will follow up the patient. 3.Shoulder pain. Follow up with the primary. 4.Urinary tract infection, secondary to Escherichia coli, sensitive to quinolones. I am going to sw itch the patient to oral Levaquin, and we will follow up. DAVY/BALTA Voice ID: [id number] Report ID: [id number]
[2018-05-03] MEDS ORDERED: WARFARIN SODIUM 1 MG TAB PO SCH (17:00)
[2018-05-03] MEDS: ATORVASTATIN 20 MG TAB PO SCH (22:18)
[2018-05-03] MEDS: CEFUROXIME 250 MG TAB PO SCH (22:18)
[2018-05-03] MEDS: TRAMADOL HCL 50 MG TAB PO PRN (22:19)
[2018-05-04] MEDS: ACETAMINOPHEN 500 MG TAB PO PRN (00:25)
[2018-05-04] MEDS: HYDRALAZINE HCL 20 MG/ML VIAL IV PRN (00:25)
[2018-05-04] MEDS ORDERED: MORPHINE 2 MG/ML SYR IV ONE (00:36)
[2018-05-04 06:27] LABS: Protime INR 7.63
[2018-05-04] MEDS: INSULIN -REGULAR HUMAN 50 UNIT/0.5 ML ML SQ SCH (07:30)
[2018-05-04] MEDS ORDERED: AMLODIPINE 10 MG TAB PO SCH (09:00)
[2018-05-04] MEDS ORDERED: FUROSEMIDE 40 MG/4 ML VIAL IV SCH (09:00)
[2018-05-04] MEDS ORDERED: CEFTRIAXONE/SWI 1gm 1 GM/10 ML SYR IV SCH (09:00)
[2018-05-04] MEDS: CEFUROXIME 250 MG TAB PO SCH (09:01)
[2018-05-04] MEDS: MONTELUKAST 10 MG TAB PO SCH (09:04)
[2018-05-04] MEDS: PROPAFENONE HCL 150 MG TAB PO SCH (09:04)
[2018-05-04] MEDS: METOPROLOL TAR 50 MG TAB PO SCH (09:04)
[2018-05-04] MEDS: PANTOPRAZOLE 40MG TABLET PO SCH (09:05)
[2018-05-04] MEDS: INSULIN GLARGINE 100 UNITS/ML SQ SCH (09:05)
[2018-05-04] MEDS: INSULIN LISPRO 100 UNIT/1 ML SQ SCH (09:06)
[2018-05-04 09:07] VITALS: BP 184/79
[2018-05-04 10:29] VITALS: TEMP 98
[2018-05-04 11:55] VITALS: O2SAT 93
--- NOTE | 2018-05-04 18:33 | P.DS ---
Admission Date: 04/30/18 Discharge Date: 05/04/18 Disposition: ROUTINE DISCHARGE Discharge Condition: GOOD Reason for Admission: complicated UTI Consultations: Nephrology, Dr. clayton Brief History of Present Illness: Ms De La Rosa is a 77 years old with history of HTN, hypothyroidism, IDDM who came to ED a couple of days ago due to shoulder pain, she was discharged with Tramadol PO. When the patient took this medication, she become nauseated, start vomiting and having diarrhea. Her symptoms got worse over the time, and today she came for further evaluation. She denied fever at home. At arrival, she was febrile 100.0 F. Lab work remarkable for leukocytosis with bandemia. Lactate within normal limits, creatinine 4.1, hyperglycemia. UA abnormal consistent with UTI. Hospital Course: Sepsis. Patient was admitted for sepsis. IV fluids were started, IV antibiotics were started. Cultures were pending, and she was clinically improving on broad-spectrum IV antibiotic. Source of infection is urinary tract infection. Antibiotics switched to oral antibiotic per urine cultures. Patient's sepsis seemed to have resolved. Elevated INR Patient anticoagulated with Coumadin at home for atrial fibrillation her. Her INR was elevated, her Coumadin was held. INR did improve down to 10 and furthermore down to 7. Her Coumadin levels were held at discharge. She was instructed to follow up with her fluid pump operator and primary care physician in a few days to recheck INR prior to starting Coumadin. Right shoulder pain Recent right shoulder x-ray negative for any acute abnormalities or fractures. MRI of the right shoulder also negative for any acute abnormalities, doubtful for any tears. Discussed with patient regarding putting lidocaine patch on shoulder to help with the pain. Physical therapy ordered. Patient did not want a patch, she did work well with physical therapy. Mjaey-ol-nohcksq kidney disease stage 3. Creatinine back to baseline. Dr. Clayton was consulted. Acute cystitis with hematuria with E. coli Urine cultures finalized, E. coli sensitive to most cephalosporins. Switched patient to oral cefuroxime 250 mg b.i.d.. Discontinued IV Rocephin History of left nephrectomy Patient was noncooperative Caitlin just wanted to get transferred to [place] because all her doctors were there. Explained multiple times to patient, daughter on the phone as well as her friend at bedside that there is no reason for a transfer as we were providing her for the care that she needed for her current complaints. She kept on stating that she would like to be transferred to her fluid pump operator in [place] for her right shoulder pain. She remained on cooperative, ugly with the staff. Patient wanted to be discharged from our facility so she could drive over to [place]. She was medically stable and was cleared for discharge. Prescription for her antibiotic was sent to pharmacy. She was instructed to hold her Coumadin as her INR was still elevated. She is not to start her Coumadin until she follows up with the PCP fluid pump operator in a few days to check her INR. She stated that she was going to drive straight to [place] to see her doctors there. Vital Signs/Physical Exam: Temp Pulse Resp BP Pulse Ox 98.0 F 56 18 184/79 H 93 05/04/18 08:00 05/04/18 09:04 05/04/18 08:00 05/04/18 09:04 05/04/18 08:00 General: Alert, In no apparent distress, Oriented x3 HEENT: Atraumatic, PERRLA, EOMI Neck: Supple, JVD not distended Respiratory: Clear to auscultation bilaterally, Normal air movement Cardiovascular: Regular rate/rhythm, Normal S1 S2 Gastrointestinal: Normal bowel sounds, No tenderness Musculoskeletal: No tenderness Integumentary: No rashes Neurological: Normal speech, Normal tone, Normal affect Lymphatics: No axilla or inguinal lymphadenopathy Laboratory Data at Discharge: WBC 13.0 K/uL (4.3-10.9) H 05/02/18 05:41 Hgb 10.2 g/dL (12.0-15.0) L 05/02/18 05:41 Hct 30.5 % (36.0-45.0) L 05/02/18 05:41 Plt Count 81 K/uL (152-406) L 05/02/18 05:41 PT 91.9 SECONDS (9.5-12.5) H 05/04/18 05:27 INR 7.63 H* 05/04/18 05:27 Sodium 139 mmol/L (136-145) 05/03/18 09:36 Potassium 3.8 mmol/L (3.5-5.1) 05/03/18 09:36 BUN 66 mg/dL (7-18) H 05/03/18 09:36 Creatinine 3.00 mg/dL (0.55-1.3) H 05/03/18 09:36 Glucose 117 mg/dL (74-106) H 05/03/18 09:36 Magnesium 2.1 mg/dL (1.8-2.4) 05/01/18 05:58 Total Bilirubin 0.5 mg/dL (0.2-1.0) 05/03/18 09:36 AST 19 U/L (15-37) 05/03/18 09:36 ALT 23 U/L (12-78) 05/03/18 09:36 Alkaline Phosphatase 191 U/L (45-117) H 05/03/18 09:36 Troponin I < 0.02 ng/mL (0.0-0.045) 05/04/18 05:27 Lipase 27 U/L (73-393) L 04/30/18 19:50 Home Medications: cloNIDine HCl [Catapres*] 0.1 mg PO BID 07/25/14 Metoprolol Tartrate [Lopressor*] 50 mg PO BID #60 tab 08/04/14 Albuterol Sulfate [Proair Hfa] 8.5 gm IH DAILY 05/01/18 Atorvastatin Calcium [Lipitor*] 20 mg PO BEDTIME 05/01/18 Calcitrol [Rocaltrol*] 0.5 mcg PO DAILY 05/01/18 Fluticasone/Salmeterol [Advair 250/50 Diskus*] 2 puff IH BID 05/01/18 Hydralazine HCl 50 mg PO TID 05/01/18 Insulin Glargine,Hum.rec.anlog [Daiana Edwards] 30 unit SQ DAILY 05/01/18 Insulin Lispro [Humalog Kwikpen U-100] 5 unit SQ TID 05/01/18 Iron,Carbonyl/Vit C/Vit B12/FA [Iron 100 Plus Tablet] 1 each PO DAILY 05/01/18 Magnesium Oxide [Mag 0X*] 400 mg PO DAILY 05/01/18 Montelukast [Singulair*] 10 mg PO DAILY 05/01/18 Nifedipine Xl [Procardia XL*] 60 mg PO DAILY 05/01/18 Pantoprazole [Protonix Tab*] 40 mg PO BID 05/01/18 Potassium Chloride 10 meq PO DAILY 05/01/18 Propafenone [Rythmol*] 150 mg PO BID 05/01/18 Torsemide [Demadex*] 20 mg PO DAILY 05/01/18 Tramadol HCl [Ultram] 50 mg PO Q6HR PRN 05/01/18 Amlodipine [Norvasc*] 10 mg PO DAILY #30 tab 05/04/18 Cefuroxime [Ceftin*] 250 mg PO BID #14 tab 05/04/18 New Medications: Amlodipine [Norvasc*] 10 mg PO DAILY #30 tab Cefuroxime [Ceftin*] 250 mg PO BID #14 tab Patient Discharge Instructions: Please follow up with your fluid pump operator in 1-2 weeks. Please follow up with your PCP in 1 week. Diet: ADA Activity: Ad jung Followup: Manoj Clayton MD [ACTIVE - CAN ADMIT] - Physician Review: Patient Assessed, Agree with Above Assessment and Plan Time spent managing pt's care (in minutes): 55
== END 2018-05-04 10:07 | disposition home or self-care (01) | DRG 872 ==
LOC: ER 19:07 → 2ND 21:03
PROVIDERS: ADMIT Internal Medicine; ATTEND Family Medicine
DX: A41.9 Sepsis, unspecified organism (principal); N17.9 Acute kidney failure, unspecified; N30.01 Acute cystitis with hematuria; E03.9 Hypothyroidism, unspecified; I48.91 Unspecified atrial fibrillation; Z79.01 Long term (current) use of anticoagulants; I10 Essential (primary) hypertension; E11.9 Type 2 diabetes mellitus without complications; M25.511 Pain in right shoulder; I12.9 Hypertensive chronic kidney disease with stage 1 through stage 4 chronic kidney disease, or unspecified chronic kidney disease; E11.22 Type 2 diabetes mellitus with diabetic chronic kidney disease; N18.3 Chronic kidney disease, stage 3 (moderate); B96.20 Unspecified Escherichia coli [E. coli] as the cause of diseases classified elsewhere; Z90.5 Acquired absence of kidney; Z88.5 Allergy status to narcotic agent; Z85.528 Personal history of other malignant neoplasm of kidney; E86.0 Dehydration; Z79.4 Long term (current) use of insulin; E11.65 Type 2 diabetes mellitus with hyperglycemia; N25.0 Renal osteodystrophy; M79.7 Fibromyalgia; J40 Bronchitis, not specified as acute or chronic; R79.1 Abnormal coagulation profile
CPT/HCPCS: 36415; 51702; 70450; 71045; 76705; 76770; 80048; 80053; 80076; 81003; 81015; 82728; 82962; 83540; 83605; 83690; 83735; 84466; 84484; 85025; 85610; 86334; 86335; 87077; 87086; 87088; 87186; 90714; 96361; 96365; 96375; 97163; 99284; 99285; J0360; J0696; J1940; J2001; J2270; J2405; J2550; J3370; J7030